=== PATIENT | female | born 1965 | race Caucasian/White ===

== ENCOUNTER 2023-11-26 09:24 | Outpatient (OUT) | payer OTHER, SELFPAY ==
--- NOTE | 2023-11-26 09:27 | MM_ITS ---
Patient Name: JANNY FERREIRA MR#: [id number] : 1965 Exam Date: 11/26/2023 Ordering Doctor: DR KIET ROBLES . RADIOLOGY REPORT PROCEDURE: MM TOMOSYNTHESIS SCREENING BI COMPARISON: MG MAMM SCREEN [place] W CAD, 09/15/2018. MG MAMM SCREEN 3D [place] CAD, 03/13/2021. INDICATIONS: Screening Calculator Name NCI Breast Cancer Risk Assessment Tool 5 Year Breast Cancer Risk 1.70% Lifetime Breast Cancer Risk 10.90% Personal Breast Cancer No Personal Ovarian Cancer No Treatments None Family Cancers Grandmother-maternal with breast cancer at age ~81; Grandfather-paternal with prostate cancer at age ~80. LOCATION: The [facility] BREAST COMPOSITION: The breasts are heterogeneously dense,which may obscure small masses. FINDINGS: DIAGNOSTIC CATEGORY 1--NEGATIVE. NO CHANGE FROM COMPARISON ASSESSMENT. Scattered benign-appearing calcifications are present. Scattered benign-appearing lymph nodes are present. RIGHT BREAST: No significant suspicious finding. LEFT BREAST: No significant suspicious finding. RECOMMENDATIONS: ROUTINE MAMMOGRAM AND CLINICAL EVALUATION IN 12 MONTHS. PLEASE NOTE: A NORMAL MAMMOGRAM DOES NOT EXCLUDE THE POSSIBILITY OF BREAST CANCER. A CLINICALLY SUSPICIOUS PALPABLE LUMP SHOULD BE BIOPSIED. Dictated by: Madi Kincaid MD on 11/26/2023 at 11:13 Approved by: Madi Kincaid MD on 11/26/2023 at 11:14
== END 2023-11-26 09:25 | disposition home or self-care (01) ==
LOC: MAMMO 09:24
PROVIDERS: PCP Family Medicine; Visit Provider Family Medicine
DX: Z12.31 Encounter for screening mammogram for malignant neoplasm of breast (principal); Z80.3 Family history of malignant neoplasm of breast; Z80.42 Family history of malignant neoplasm of prostate
CPT/HCPCS: 77063; 77067

== ENCOUNTER 2024-11-02 15:24 | Observation (INO) | payer OTHER, SELFPAY ==
[2024-11-02] VITALS (23 sets, daily range): BP systolic 115–155; BP diastolic 55–103; PULSE 58–63; TEMP 36.6–36.9; O2SAT 92–97; BMI 29.4; BMI 31.1
--- OUTSIDE RECORDS SUMMARY | 2024-11-02 15:36 | XMS_ITS | Encounter Summary ---
Author Organization [facility] Address [address] [place] [address] Care Team Providers Care Machine Wood Sander Name Role Phone Minor Pereira MD Primary Care Provider Encounter Details Date Type Department Care Team (Late st Contact Info) Description 10/08/2022 Orders Only [facility] [place] [facility] Family Medicine [address] [facility] [place] [address] Minor Pereira MD [address] [place] [address] (Fax) COVID-19 (Primary Dx) Social History Tobacco Use Types Packs/Day Years Used Date Smoking Tobacco: Every Day Cigarettes Smokeless Tobacco: Never Alcohol Use Standard Drinks/Week Comments Yes 2 (1 standard drink = 0.6 oz pur e alcohol) Humiliation, Afraid, Rape, and Kick questionnair e Answer Date Recorded Within the last year, have y ou been afraid of your partner or ex-partner? No 09/13/2022 Within the last year, have y ou been humiliated or emotionally abused in other ways by your partner or ex-partner? No Within the last year, have y ou been kicked, hit, slapped, or otherwise physically hurt by your partner or ex-partner? No 09/13/2022 Within the last year, have y ou been raped or forced to have any kind of sexual activity by your partner or ex-partner? No 09/13/2022 Social Connection and Isolation Panel [NHANES] A nswer Date Recorded In a typical week, how many times do you talk on the phone with family, friends, or neighbors? Twice a week 09/13/2022 How often do you get together with friends or re latives? Once a week 09/13/2022 How often do you attend taoist or rastafari serv ices? Never 09/13/2022 Do you belong to any clubs o r organizations such as taoist groups, unions, fraternal or athletic groups, or school groups? No 09/13/2022 How often do you attend meet ings of the clubs or organizations you belong to? Never 09/13/2022 Are you , , di vorced, , never , or living with a partner? 09/13/2022 AUDIT-C Answer Date Recorded Q1: How often do you have a drink containing alc ohol? Monthly or less 09/13/2022 Q2: How many drinks containi ng alcohol do you have on a typical day when you are drinking? 1 or 2 09/13/2022 Q3: How often do you have si x or more drinks on one occasion? Never 09/13/2022 Overall Financial Resource Strain (CARDIA) Answe r Date Recorded How hard is it for you to pa y for the very basics like food, housing, medical care, and heating? Not hard at all 09/13/2022 [facility] - Occupational Stress Questionnaire Answer Date Recorded Do you feel stress - tense, restless, nervous, or anxious, or unable to sleep at night because your mind is troubled all the time - these days? Very much 09/13/2022 Exercise Vital Sign Answer Date Recorde d On average, how many days pe r week do you engage in moderate to strenuous exercise (like a brisk walk)? 2 days 09/13/2022 On average, how many minutes do you engage in exercise at this level? 20 min 09/13/2022 Hunger Vital Sign Answer Date Recorded Within the past 12 months, y ou worried that your food would run out before you got the money to buy more. Never true 09/14/19 23 Within the past 12 months, t he food you bought just didn't last and you didn't have money to get more. Never true 09/13/2022 PRAPARE - Transportation Answer Date Re corded In the past 12 months, has l ack of transportation kept you from medical appointments or from getting medications? No 08/17 In the past 12 months, has l ack of transportation kept you from meetings, work, or from getting things needed for daily living? No 09/13/2022 Housing Stability Vital Sign Answer Julian e Recorded In the last 12 months, was t here a time when you were not able to pay the mortgage or rent on time? No 09/13/2022 In the last 12 months, how many places have you lived? 1 09/13/2022 In the last 12 months, was t here a time when you did not have a steady place to sleep or slept in a long-term (including now)? No 09/13/2022 Comments No Sex and Gender Information Value Date Recorded Sex Assigned at Not on file Legal Sex Female 7:05 PM EDT Gender Identity Not on file Sexual Orientation Not on file COVID-19 Exposure Response Date Recorded In the last 10 days, have yo u been in contact with someone who was confirmed or suspected to have Coronavirus/COVID-19? No / Unsure 09/13/2022 3:03 PM EDT documented as of this encounter Plan of Treatment Upcoming Encounters Date Type Department Care Team (Late st Contact Info) Description 02/19/2025 10:00 AM EST Office Visit [facility] [address] [address] [place] [address] Minor Pereira MD 112 [facility] [address] [place] [address] documented as of this encounter Visit Diagnoses Diagnosis COVID-19- Primary documented in this encounter Care Teams Machine Wood Sander Relationship Specialty Start Date End Date Minor Pereira MD 112 [address] [place] [address] PCP - General Family Medicine 06/07/24 documented as of this encounter
--- OUTSIDE RECORDS SUMMARY | 2024-11-02 15:36 | XMS_ITS | Encounter Summary ---
Author Organization [facility] Address [address] [facility] [place] [address] Care Team Providers Care Recovery Coach Name Role Phone Minor Pereira MD Primary Care Provider [phone] Encounter Details Date Type Department Care Team (Late st Contact Info) Description 10/14/2023 Orders Only [facility] [place] [facility] Family Medicine 112 [facility] 100 [place] [address] Minor Pereira MD 112 [facility] 100 [place] [address] Social History Tobacco Use Types Packs/Day Years Used Date Smoking Tobacco: Every Day Cigarettes 0.5 15 Smokeless Tobacco: Never Alcohol Use Standard Drinks/Week Comments Not Currently 2 (1 standard drink = 0.6 oz pur e alcohol) B1300 Health Literacy Answer Date Recor ded How often do you need to hav e someone help you when you read instructions, pamphlets, or other written material from your doctor or pharmacy? Never 09/16/2023 Humiliation, Afraid, Rape, and Kick questionnair e [...] or ex-partner? No 09/13/2022 Social Connection and Isolat ion Panel [NHANES] Answer Date Recorded In a typical week, how many times do you talk on the phone with family, friends, or neighbors? More than three times a week 09/16/2023 How often do you get togethe r with friends or relatives? Once a week 09/16/2023 How often do you attend chur or lutheran services? Never 09/16/2023 Do you belong to any clubs o r organizations such as orthodox groups, unions, fraternal or athletic groups, or school groups? No 09/16/2023 How often do you attend meet ings of the clubs or organizations you belong to? Never 09/16/2023 Are you , , di vorced, , never , or living with a partner? 09/16/2023 AUDIT-C Answer Date Recorded Q1: How often do you have a drink containing alcohol? Never 09/16/2023 Q2: How many drinks containi ng alcohol do you have on a typical day when you are drinking? Patient does not drink Q3: How often do you have si x or more drinks on one occasion? Never 09/16/2023 Overall Financial Resource Strain (CARDIA) Answe r Date Recorded How hard is it for you to pa y for the very basics like food, housing, medical care, and heating? Not hard at all 09/16/2023 PHQ-2 Answer Date Recorded Patient Health Questionnaire-2 Score 0 03/09/2023 [facility] - Occupational Stress Questionnaire Answer Date Recorded Do you feel stress - tense, restless, nervous, or anxious, or unable to sleep at night because your mind is troubled all the time - these days? To some extent 09/16/2023 Exercise Vital Sign Answer Date Recorde d On average, how many days pe r week do you engage in moderate to strenuous exercise (like a brisk walk)? 3 days 09/16/2023 On average, how many minutes do you engage in exercise at this level? 50 min 09/16/2023 Hunger Vital Sign Answer Date Recorded Within the past 12 months, y ou worried that your food would run out before you got the money to buy more. Never true 09/16/19 24 Within the past 12 months, t he food you bought just didn't last and you didn't have money to get more. Never true 09/16/2023 PRAPARE - Transportation Answer Date Re corded In the past 12 months, has l ack of transportation kept you from medical appointments or from getting medications? No 02/2023 In the past 12 months, has l ack of transportation kept you from meetings, work, or from getting things needed for daily living? No 09/16/2023 Housing Stability Vital Sign Answer Julian e [...] place to sleep or slept in a fdc (including now)? No 09/13/2022 Housing Stability Vital Sign Answer Julian e Recorded In the last 12 months, was t here a time when you were not able to pay the mortgage or rent on time? No 09/16/2023 Number of Times Moved in the Last Year Not on fi le 09/16/2023 At any time in the past 12 m [facility], were you homeless or living in a fdc (including now)? No 09/16/2023 Comments No Sex and Gender Information Value Date Recorded Sex Assigned at Not on file Legal Sex Female 7:05 PM EDT Gender Identity Not on file Sexual Orientation Not on file documented as of this encounter Plan of Treatment Upcoming Encounters Date Type Department Care Team (Late st Contact Info) Description 02/19/2025 10:00 AM EST Office Visit [facility] [address] [facility] 100 [place] [address] Minor Pereira MD 112 [facility] 100 [place] [address] (Fax) documented as of this encounter Visit Diagnoses Not on filedocumented in this encounter Care Teams Recovery Coach Relationship Specialty Start Date End Date Minor Pereira MD [address] [address] PCP - General Family Medicine 06/07/24 documented as of this encounter
--- OUTSIDE RECORDS SUMMARY | 2024-11-02 15:36 | XMS_ITS | Encounter Summary ---
Author Organization [facility] Address [address] [facility] [place] [address] Care Team Providers Care Boiler Room Operator Name Role Phone Minor Pereira MD Primary Care Provider [phone] Encounter Details Date Type Department Care Team (Late st Contact Info) Description 05/31/2024 Orders Only [facility] [place] [address] [facility] 100 [place] [address] Minor Pereira MD 112 [facility] 100 [place] [address] Social History Tobacco Use Types Packs/Day Years [...] How often do you attend chur or congregation services? Never 09/16/2023 Do you belong to any clubs o r organizations such as worship groups, unions, fraternal or athletic groups, or [...] Recorded Patient Health Questionnaire-2 Score 0 03/09/2023 [facility] - Occupational Stress Questionnaire Answer Date [...] place to sleep or slept in a [place] facility (including now)? No 09/13/2022 Housing Stability Vital Sign Answer Julian e Recorded In the last 12 months, was t here a time when you were not able to pay the mortgage or rent on time? No 09/16/2023 Number of Times Moved in the Last Year Not on fi le 09/16/2023 At any time in the past 12 m [facility], were you homeless or living in a [place] facility (including now)? No 09/16/2023 Comments No Sex [...] Visit [facility] [place] [address] [facility] [address] [place] [address] Minor Pereira MD 112 [facility] 100 [place] [address] (Fax) documented as of this encounter Visit Diagnoses Not on filedocumented in this encounter Care Teams Boiler Room Operator Relationship Specialty Start Date End Date Minor Pereira MD [address] [address] PCP - General Family Medicine 06/07/24 documented as of this encounter
--- OUTSIDE RECORDS SUMMARY | 2024-11-02 15:36 | XMS_ITS | Encounter Summary ---
Author Organization [facility] Address [address] [facility] [address] [place] [address] Care Team Providers Care Clinical Manager Home Care Name Role Phone Unavailable Primary Care Provider Unavailabl e Encounter Details Date Type Department Care Team (Late st Contact Info) Description 11/15/2023 Orders Only [facility] Part of [address] [place] [phone] Provider, Historical, Social History Tobacco Use Types Packs/Day Years Used Date Smoking Tobacco: Never Assessed Comments Unknown Sex and Gender Information Value Date Recorded Sex Assigned at Female 11/16/2023 2:21 PM EDT Legal Sex Female 1:37 PM EDT Gender Identity Female 11/16/2023 2:21 PM EDT Sexual Orientation Straight 11/16/2023 2: 21 PM EDT documented as of this encounter Plan of Treatment Not on file documented as of this encounter Procedures Procedure Name Priority Date/Time Associated Diagnosis Comments CT ABDOMEN PELVIS W CONTRAST Routine 10/21/2023 8:37 AM EDT URINE CULTURE CLEAN CATCH Routine 2023 8:38 AM EDT COMPREHENSIVE METABOLIC PANEL Routine 08/09/2023 8:40 AM EDT documented in this encounter Results * CT abdomen pelvis w contrast (10/21/2023 8:37 AM EDT) Anatomical Region Laterality Modality Computed Tomogra phy Historical Provider MD ZIEGLER CT ORDERABLES Final R esult * Urine culture clean catch (10/06/2023 8:38 AM EDT) us Historical Provider MICROBIOLOGY - GENERAL OR DERABLES Final Result * Comprehensive Metabolic Panel (08/09/2023 8:40 AM EDT) Blood BLOOD SPECIMEN / Unknown us Historical Provider CHEMISTRY ORDERABLES Kera l Result documented in this encounter Visit Diagnoses Not on filedocumented in this encounter
--- OUTSIDE RECORDS SUMMARY | 2024-11-02 15:36 | XMS_ITS | Encounter Summary ---
Author Organization [facility] Address [address] [place] [address] Care Team Providers Care Ferris Wheel Operator Name Role Phone Minor Pereira MD Primary Care Provider [phone] Encounter Details Date Type Department Care Team (Late st Contact Info) Description 11/26/2023 Clinisync Result Encounter [facility] External Department Unsolicited Minor Pereira MD [address] [place] [address] Social History Tobacco Use Types Packs/Day Years [...] 09/16/2023 How often do you attend chur ch or samaritan services? Never 09/16/2023 Do you belong to any clubs o r organizations such as hoahaoism groups, unions, fraternal or athletic groups, or [...] Recorded Patient Health Questionnaire-2 Score 0 03/09/2023 [facility] Answer Date Recorded [...] place to sleep or slept in a half-way (including now)? No 09/13/2022 Housing Stability Vital Sign Answer Julian e Recorded In the last 12 months, was t here a time when you were not able to pay the mortgage or rent on time? No 09/16/2023 Number of Times Moved in the Last Year Not on fi le 09/16/2023 At any time in the past [address] [facility], were you homeless or living in a half-way (including now)? No 09/16/2023 Comments No Sex and Gender Information Value Date Recorded Sex Assigned at Not on file Legal Sex Female 7:05 PM EDT Gender Identity Not on file Sexual Orientation Not on file documented as of this encounter Plan of Treatment Upcoming Encounters Date Type Department Care Team (Late st Contact Info) Description 02/19/2025 10:00 AM EST Office Visit [facility] 112 [facility] 100 [place] [address] Minor Pereira MD 112 [facility] [address] [place] [address] documented as of this encounter Procedures Procedure Name Priority Date/Time Associated Diagnosis Comments MM TOMOSYNTHESIS SCREENING BI 11/26/2023 11:14 AM EDT documented in this encounter Results * MM TOMOSYNTHESIS SCREENING BI (11/26/2023 11:14 AM EDT) Anatomical Region Laterality Modality Other 11/26/2023 11:1 4 AM EDT Narrative 11/26/2023 11:15 AM EDT The [address] [address] Mammography Report Signed Patient: JANNY FERREIRA MR#: [id number] : 1965 Acct:[id number] Age/Sex: 58 / F ADM Date: 11/26/23 Loc: MAMMO Attending Dr: MINOR PEREIRA Ordering Physician: MINOR PEREIRA Results: Date of Service: 11/26/23 Follow Up: Procedure(s): MM tomosynthesis screening BI Accession Number(s): [id number] cc: MINOR PEREIRA Patient Name: JANNY FERREIRA MR#: [id number] : 1965 Exam Date: 11/26/2023 Ordering Doctor: DR MINOR PEREIRA . RADIOLOGY REPORT PROCEDURE: MM TOMOSYNTHESIS SCREENING BI COMPARISON: MG MAMM SCREEN [place] W CAD, 09/15/2018. MG MAMM SCREEN 3D [place] CAD, 03/13/2021. INDICATIONS: Screening Calculator Name NCI Breast Cancer Risk Assessment Tool 5 Year Breast Cancer Risk 1.70% Lifetime Breast Cancer Risk 10.90% Personal Breast Cancer No Personal Ovarian Cancer No Treatments None Family Cancers Grandmother-maternal with breast cancer at age 81; Grandfather-paternal with prostate cancer at age 80. LOCATION: The [facility] BREAST COMPOSITION: The breasts are heterogeneously dense,which may obscure small masses. FINDINGS: DIAGNOSTIC CATEGORY 1--NEGATIVE. NO CHANGE FROM COMPARISON ASSESSMENT. Scattered benign-appearing calcifications are present. Scattered benign-appearing lymph nodes are present. RIGHT BREAST: No significant suspicious finding. LEFT BREAST: No significant suspicious finding. RECOMMENDATIONS: ROUTINE MAMMOGRAM AND CLINICAL EVALUATION IN 12 MONTHS. PLEASE NOTE: A NORMAL MAMMOGRAM DOES NOT EXCLUDE THE POSSIBILITY OF BREAST CANCER. A CLINICALLY SUSPICIOUS PALPABLE LUMP SHOULD BE BIOPSIED. Dictated by: Madi Kincaid MD on 11/26/2023 at 11:13 Approved by: Madi Kincaid MD on 11/26/2023 at 11:14 Dictated By: Madi Kincaid M.D. Signed By: 11/26/23 1115 DD/ 1114 TD/TT: Tv Host: Procedure Note Radiology, Radiologist, - 11/26/2023 [place] [address] Mammography Report Signed Patient: JANNY FERREIRA NMR#: [id number] : 1965Acct:[id number] Age/Sex: 58 / FADM Date: 11/26/23 Loc: MAMMO Attending Dr: MINOR PEREIRA Ordering Physician: MINOR PEREIRAResults: Date of Service: 11/26/23Follow Up: Procedure(s): MM tomosynthesis screening BI Accession Number(s): [id number] cc: MINOR PEREIRA Patient Name: JANNY FERREIRA MR#: [id number] : 1965 Exam Date: 11/26/2023 Ordering Doctor: DR MINOR PEREIRA . RADIOLOGY REPORT PROCEDURE: MM TOMOSYNTHESIS SCREENING BI COMPARISON: MG MAMM SCREEN [place] W CAD, 09/15/2018. MG MAMM SCREEN 3DBIL CAD, 03/13/2021. INDICATIONS: Screening Calculator Name NCI Breast Cancer Risk Assessment Tool 5 Year Breast Cancer Risk 1.70% Lifetime Breast Cancer Risk 10.90% Personal Breast Cancer No Personal Ovarian Cancer No Treatments None Family Cancers Grandmother-maternal with breast cancer at age 81; Grandfather-paternal with prostate cancer at age 80. LOCATION: The [facility] BREAST COMPOSITION: The breasts are heterogeneously dense,which may obscure small masses. FINDINGS: DIAGNOSTIC CATEGORY 1--NEGATIVE. NO CHANGE FROM COMPARISON ASSESSMENT. Scattered benign-appearing calcifications are present. Scattered benign-appearing lymph nodes are present. RIGHT BREAST: No significant suspicious finding. LEFT BREAST: No significant suspicious finding. RECOMMENDATIONS: ROUTINE MAMMOGRAM AND CLINICAL EVALUATION IN 12 MONTHS. PLEASE NOTE: A NORMAL MAMMOGRAM DOES NOT EXCLUDE THE POSSIBILITY OFBREAST CANCER. A CLINICALLY SUSPICIOUS PALPABLE LUMP SHOULD BE BIOPSIED. Dictated by: Madi Kincaid MD on 11/26/2023 at 11:13 Approved by: Madi Kincaid MD on 11/26/2023 at 11:14 Dictated By: Madi Kincaid M.D. Signed By:11/26/23 1115 DD/ 1114 TD/TT: Tv Host: Minor Pereira MD [facility] Final Resu lt documented in this encounter Visit Diagnoses Not on filedocumented in this encounter Care Teams Ferris Wheel Operator Relationship Specialty Start Date End Date Minor Pereira MD [address] [place] [address] PCP - General Family Medicine 06/07/24 documented as of this encounter
--- OUTSIDE RECORDS SUMMARY | 2024-11-02 15:36 | XMS_ITS | Clinical Summary ---
Author Organization [facility] Healthcare Address [address] [place] [address] Care Team Providers Care Taping Foreman Name Role Phone Minor Pereira MD Primary Care Provider + [phone] Allergies No known active allergies Medications diphenhydrAMINE (Benadryl Allergy) 25 MG capsule Take 25 mg by mouth every 8 (eight) hours if needed Active bisacodyl (Dulcolax) 5 MG EC tablet Take 5 mg by mouth Daily as needed Active azelastine (Astelin) 0.1 % nasal spray Administer 2 sprays into each nostril in the morning and 2 sprays before bedtime. 3 Active ASPIRIN 81 MG chewable tablet Chew 81 mg 3 (three) times a week Active ibuprofen 200 MG tablet Take 200 mg by mouth every 8 (eight) hours if needed Active metFORMIN XR (Glucophage-XR) 750 MG 24 hr tabletIndications: Pre-diabetes Take 1 tablet (750 mg) by mouth in the morning and 1 tablet (750 mg) before bedtime. Do not crush, chew, or split. 180 tablet 3 5 026 Active atorvastatin (Lipitor) 40 MG tabletIndications: Mixed hyperlipidemia Take 1 tablet (40 mg) by mouth at bedtime 90 tablet 1 5 026 Active Active Problems Problem Noted Date Diagnosed Date Multiple pulmonary nodules 11/08/2023 Polypharmacy 03/19/2023 Stage 2 chronic kidney disease 03/19/2023 Pre-diabetes 03/19/2023 Sleep initiation disorder 03/09/2023 Benign paroxysmal positional vertigo 07/29/2022 Cigarette smoker 07/29/2022 CPAP (continuous positive airway pressure) depen denalek 07/29/2022 Overview (03/19/2023): AutoPap History of hysterectomy 07/29/2022 Overview (11/08/2023): LUIZ Mixed hyperlipidemia 07/29/2022 Non morbid obesity due to excess calories 2022 Obstructive sleep apnea 07/29/2022 Old inferior wall myocardial infarction 07/30/19 Right bundle branch block 07/29/2022 Resolved Problems Problem Noted Date Diagnosed Date Resolved Date Chronic idiopathic urticaria 07/29/2022 11/08/2023 Encounters Date Type Department Care Team Description 08/22/2024 10:00 AM EDT Office Visit [facility] [address] [facility] [address] [place] [address] Minor Pereira MD Mixed hyperlipidemia ; Pre-diabetes; Stage 2 chronic kidney disease; Sleep initiation disorder; Cigarette smoker; Polypharmacy; Non morbid obesity due to excess calories 08/22/2024 Bamboo flowsheet [facility] [address] [place] [address] [address] [place] [address] Minor Pereira MD 08/22/2024 Travel 08/20/2024 Travel from Last 3 Months Immunizations Immunization Administration Dates Next Due Influenza, injectable, quadr ivalent, preservative free 12/26/2019,12/01/2018,11/22/2017 Influenza, seasonal, injectable 11/21/2018 Family History Medical History Relation Name Comments No Known Problems Brother No Known Problems Daughter Hearing loss Father Mak Hale Heart disease Father Mak Hale CABG Rheum arthritis Father Mak Hale Hearing loss Mother Lexi Hale Hypertension Mother Lexi Hale No Known Problems Sister No Known Problems Son Relation Name Status Comments Brother 1 brother Daughter 1 daughter Father Mak Hale Alive Mother Lexi Moed Alive Sister 1 sister Son 1 son Social History Tobacco Use Types Packs/Day Years Used Date Smoking Tobacco: Every Day Cigarettes 0.5 15 Smokeless Tobacco: Never Tobacco Cessation:Ready to Q uit: No; Counseling Given: Yes Alcohol Use Standard Drinks/Week Comments Not Currently [...] often do you attend chur ch or mu-ism services? Never 09/16/2023 Do you belong to any clubs o r organizations such as nondenominational groups, unions, fraternal or athletic groups, or [...] Recorded Patient Health Questionnaire-2 Score 0 03/09/2023 [facility] - Occupational [...] place to sleep or slept in a fpc (including now)? No 09/13/2022 Housing Stability Vital Sign Answer Julian e Recorded In the last 12 months, was t here a time when you were not able to pay the mortgage or rent on time? No 09/16/2023 Number of Times Moved in the Last Year Not on fi le 09/16/2023 At any time in the past 12 m [facility], were you homeless or living in a fpc (including now)? No 09/16/2023 Comments No Sex and Gender Information Value Date Recorded Sex Assigned at Not on file Legal Sex Female 7:05 PM EDT Gender Identity Not on file Sexual Orientation Not on file Last Filed Vital Signs Vital Sign Reading Time Taken Comments Blood Pressure 128/78 08/22/2024 9:53 AM EDT Pulse 77 08/22/2024 9:53 AM EDT Temperature - - Respiratory Rate - - Oxygen Saturation 97% 08/22/2024 9:53 AM EDT Inhaled Oxygen Concentration - - Weight 84.6 kg (186 lb 8 oz) 08/22/2024 9:53 AM EDT Height 167.6 cm (5' 6 ) 08/22/2024 9:53 AM EDT Body Mass Index 30.1 08/22/2024 9:53 AM EDT Plan of Treatment Upcoming Encounters Date Type Department Care Team (Late st Contact Info) Description 02/19/2025 10:00 AM EST Office Visit [facility] [address] [facility] [address] [place] [address] Minor Pereira MD [address] [facility] [address] [place] [address] Health Maintenance Due Date Last Done Comments CT Colonography 1967 Colonoscopy 1965 Colorectal Cancer Screening 1965 FIT-DNA 1967 FIT 1967 FOBT 1965 Sigmoidoscopy 1967 Influenza Vaccine (#1) 2024 0, 12/01/2018, 11/21/2018, Additional history exists Mammogram 11/25/2024 11/26/2023, 02/16, 03/13/2021, Additional history exists Procedures Procedure Name Priority Date/Time Associated Diagnosis Comments LIPID PANEL Routine 08/07/2024 8:46 AM EDT Mixed hyperlipidemia COMPREHENSIVE METABOLIC PANEL Routine 08/07/2024 8:46 AM EDT Stage 2 chronic kidney disease Pre-diabetes MM TOMOSYNTHESIS SCREENING BI 11/26/2023 11:14 AM EDT from Last 3 Months or Most Recently Relevant to Health Maintenance Results * (ABNORMAL) Lipid panel (08/07/2024 8:46 AM EDT) CHOLESTEROL, TOTAL 162 <200 mg/dL [facility] HDL CHOLESTEROL 48(L) > OR = 50 mg/dL [facility] TRIGLYCERIDES 190(H) <150 mg/dL [facility] LDL CHOLESTEROL 86 mg/dL (calc) [facility] Comment: Reference range: <100 Desirable range <100 mg/dL for primary prevention; <70 mg/dL for patients with CHD or diabetic patients with > or = 2 CHD risk factors. LDL-C is now calculated using the Caterina calculation, which is a validated novel method providing better accuracy than the Friedewald equation in the estimation of LDL-C. Preston LAMB et al. CAROLYN. 2013;310(19): 5418-3904 (http://education.[employer].i.Sec/faq/PEE664) CHOL/HDLC RATIO 3.4 <5.0 (calc) [facility] NON HDL CHOLESTEROL 114 <130 mg/dL (calc) [facility] Comment: For patients with diabetes plus 1 major ASCVD risk factor, treating to a non-HDL-C goal of <100 mg/dL (LDL-C of <70 mg/dL) is considered a therapeutic option. Blood Venous blood specimen / Unknown 08/07/2024 8:46 AM EDT 08/07/2024 3:23 PM EDT Narrative [facility] - 08/08/2024 2:30 AM EDT FASTING:YES FASTING: YES Resulting Agency Comment Performing Organization Information Site ID: [email or web address] Name: [facility] Address: [address] [place] [address], [address] [place] [id number] Director: Nikunj Madrigal MD Minor Pereira MD LAB BLOOD ORDERABLES Final R esult [facility] * (ABNORMAL) Comprehensive metabolic panel (08/07/2024 8:46 AM EDT) Glucose 104(H) 65 - 99 mg/dL [facility] Comment: Fasting reference interval For someone without known diabetes, a glucose value between 100 and 125 mg/dL is consistent with prediabetes and should be confirmed with a follow-up test. BUN 12 7 - 25 mg/dL [facility] Creatinine 0.61 0.50 - 1.03 mg/dL [facility] EGFR 104 > OR = 60 mL/min/1. 73m2 [facility] BUN/CREATININE RATIO SEE NOTE: 6 - 22 (calc) [facility] Comment: Not Reported: BUN and Creatinine are within reference range. Sodium 142 135 - 146 mmol/L [facility] Potassium, Bld 4.5 3.5 - 5.3 mmol/L [facility] Chloride 107 98 - 110 mmol/L [facility] Carbon Dioxide 24 20 - 32 mmol/L [facility] Calcium 9.5 8.6 - 10.4 mg/dL [facility] PROTEIN, TOTAL 7.0 6.1 - 8.1 g/dL [facility] ALBUMIN 4.2 3.6 - 5.1 g/dL [facility] GLOBULIN 2.8 1.9 - 3.7 g/dL (calc) [facility] ALBUMIN/GLOBULIN RATIO 1.5 1.0 - 2.5 (calc) [facility] BILIRUBIN, TOTAL 0.5 0.2 - 1.2 mg/dL [facility] ALKALINE PHOSPHATASE 113 37 - 153 U/L [facility] AST 16 10 - 35 U/L [facility] ALT 27 6 - 29 U/L [facility] Blood Venous blood specimen / Unknown 08/07/2024 8:46 AM EDT 08/07/2024 3:23 PM EDT Narrative [facility] - 08/08/2024 2:30 AM EDT FASTING:YES FASTING: YES Resulting Agency Comment Performing Organization Information Site ID: [email or web address] Name: [facility] Address: [address] [place] [id number] Director: Farida Quiñones us Minor Pereira MD LAB BLOOD ORDERABLES Final R esult [facility] * MM TOMOSYNTHESIS SCREENING BI (11/26/2023 11:14 AM EDT) Anatomical Region Laterality Modality Other 11/26/2023 11:1 4 AM EDT Narrative 11/26/2023 11:15 AM EDT [address] [address] Mammography Report Signed Patient: CHAYITO FERREIRA MR#: [id number] : 1965 Acct:[id number] Age/Sex: 58 / F ADM Date: 11/26/23 Loc: [facility]MO Attending Dr: MINOR PEREIRA Ordering Physician: MINOR PEREIRA Results: Date of Service: 11/26/23 Follow Up: Procedure(s): MM tomosynthesis screening BI Accession Number(s): [id number] cc: MINOR PEREIRA Patient Name: CHAYITO FERREIRA MR#: [id number] : 1965 Exam Date: 11/26/2023 Ordering Doctor: [...] prostate cancer at age 82. LOCATION: [facility] BREAST COMPOSITION: The breasts are [...] Signed By: 11/26/23 1115 DD/ 1114 TD/TT: Food And Beverage Director: Procedure Note Radiology, Radiologist, - 11/26/2023 [facility] [place] [id number] Mammography Report Signed Patient: CHAYITO FERREIRA NMR#: [id number] : 1965Acct:[id number] Age/Sex: 58 / FADM Date: 11/26/23 Loc: MAMMO Attending Dr: MINOR PEREIRA Ordering Physician: MINOR PEREIRAResults: Date of Service: 11/26/23Follow Up: Procedure(s): MM tomosynthesis screening BI Accession Number(s): [id number] cc: MINOR PEREIRA Patient Name: CHAYITO FERREIRA MR#: [id number] : 1965 Exam Date: 11/26/2023 Ordering Doctor: [...] prostate cancer at age 82. LOCATION: [facility] BREAST COMPOSITION: The breasts are [...] M.D. Signed By:11/26/23 1115 DD/ 1114 TD/TT: Food And Beverage Director: Minro Pereira MD [facility] Final Resu lt from Last 3 Months or Most Recently Relevant to Health Maintenance Insurance [facility] Care Teams Taping Foreman Relationship Specialty Start Date End Date Minor Pereira MD [address] [address] PCP - General Family Medicine 06/07/24
--- OUTSIDE RECORDS SUMMARY | 2024-11-02 15:36 | XMS_ITS | Clinical Summary ---
Author Organization [facility] Address [address] [facility], [address] [place] [address] Care Team Providers Care Verifying Machine Operator Name Role Phone Unavailable Primary Care Provider Unavailabl e Allergies No known active allergies Medications aspirin 81 MG chewable tablet Take 1 tablet by mouth three times a week Active atorvastatin (LIPITOR) 40 MG tablet Take 1 tablet by mouth nightly 08/23/2023 Active diphenhydrAMINE (BENADRYL) 25 MG capsule Take 1 capsule by mouth every 8 hours as needed Active bisacodyl (DULCOLAX) 5 MG EC tablet Take 1 tablet by mouth daily as needed Active azelastine (ASTELIN) 0.1 % nasal spray 1 spray by Nasal route 2 times daily Use in each nostril as directed Active traZODone (DESYREL) 50 MG tablet Take 1 tablet by mouth nightly Active metFORMIN (GLUCOPHAGE-XR) 750 MG extended release tablet Take 1 tablet by mouth daily (with breakfast) Active Social History Tobacco Use Types Packs/Day Years Used Date Smoking Tobacco: Never Assessed Comments Unknown Sex and Gender Information Value Date Recorded Sex Assigned at Female 11/16/2023 2:21 PM EDT Legal Sex Female 1:37 PM EDT Gender Identity Female 11/16/2023 2:21 PM EDT Sexual Orientation Straight 11/16/2023 2: 21 PM EDT Plan of Treatment Not on file
--- OUTSIDE RECORDS SUMMARY | 2024-11-02 15:36 | XMS_ITS | Clinical Summary ---
Author Organization [facility] Address [id number] [address] [place] [address] Care Team Providers Care Finish Molder Name Role Phone Minor Pereira MD Primary Care Provider + [phone] Allergies No known active allergies Medications meclizine (ANTIVERT) 25 mg tablet 8 Active fluticasone (FLONASE) 50 mcg/actuation nasal sprayIndications :Nasal congestion Administer 1 spray into each nostril daily. 15.8 mL 12 8 Active predniSONE (DELTASONE) 10 mg tabletIndication s:Acute otitis media, unspecified otitis media type Daily dose: 5 tabs for 2 days, then 4 tabs for 2 days, then 3 tabs for 2 days, then 2 tabs for 2 days, then 1 tab for 2 days 30 tablet 8 Active Active Problems Problem Noted Date Diagnosed Date Dizziness 10/27/2017 Nasal congestion 10/27/2017 Acute otitis media 10/27/2017 Social History Tobacco Use Types Packs/Day Years Used Date Smoking Tobacco: Every Day Smokeless Tobacco: Never Childcare Answer Date Recorded Childcare Unknown 07/27/2018 Employment Answer Date Recorded Employment Unknown 07/27/2018 Purpose - Life Answer Date Recorded Purpose and direction in life Unknown Comments Unknown Sex and Gender Information Value Date Recorded Sex Assigned at Not on file Legal Sex Female 11:47 AM EDT Gender Identity Not on file Sexual Orientation Not on file Last Filed Vital Signs Vital Sign Reading Time Taken Comments Blood Pressure 122/62 10/27/2017 10:32 AM EDT Pulse - - Temperature - - Respiratory Rate - - Oxygen Saturation - - Inhaled Oxygen Concentration - - Weight 93.4 kg (206 lb) 10/27/2017 10:32 AM EDT Height 167.6 cm (5' 6 ) 10/27/2017 10:32 AM EDT Body Mass Index 33.25 10/27/2017 10:32 AM EDT Plan of Treatment Health Maintenance Due Date Last Done Comments Depression Screening 1979 Tobacco Screening 1979 Adult BMI Screening 1985 DTaP,Tdap and Td Vaccines (1 - Tdap) 1986 Pap Smear 02/17/1988 Zoster (Shingles) Vaccine (1 of 2) 2017 Influenza Vaccine 10/16/2024 Medical Devices Not [place] [address] [employer] Care Teams Finish Molder Relationship Specialty Start Date End Date Minor Pereira MD PCP - General Family Medicine 07/19/19
--- OUTSIDE RECORDS SUMMARY | 2024-11-02 15:43 | XMS_ITS | CCD ---
Author Organization [facility] Care Team Providers Care Dental Biller Name Role Phone MARGARET, DR SANTA Primary Care Unavailable HEMEYER, DR SANTA Admitting Unavailable HEMEYER, DR SANTA Attending Unavailable HEMEBINH, DR SANTA Consulting Unavailable MARGARET, DR SANTA Primary Care Unavailable JAVEDYER, DR SANTA Admitting Unavailable HEMEYER, DR SANTA Attending Unavailable HEMEYER, DR SANTA Consulting Unavailable WEST, DR IRENE Betancourt Consulting Unavailable ZIEBER, DR JULIET Fowler Consulting Unavailable MARGARET, DR SANTA Primary Care Unavailable MICHELLE SANTANA Admitting Unavailable MICHELLE SANTANA Attending Unavailable MICHELLE SANTANA Consulting Unavailable Mary Bowens Unavailable Kelli Monte Unavailable MASSIMO Monte Attending Provider Kelli Monte Attending Unavailable Kelli Monte Admitting Unavailable Kiet Robles MD Primary Care Provider [phone] Kiet Robles MD Primary Care Provider Kiet Robles MD Primary Care Provider KIET ROBLES Referring Unavailable KIET ROBLES Attending Unavailable KIET ROBLES Referring Unavailable LIVIER AMBROSIO Attending Unavailable SULAIMAN MEYER Attending Unavailable KIET ROBLES Referring Unavailable IRENE MORAN Attending Unavailable SULAIMAN MEYER Referring Unavailable KIET ROBLES Attending Unavailable KIET ROBLES Attending Unavailable KIET ROBLES Referring Unavailable KIET ROBLES Attending Unavailable KIET ROBLES Attending Unavailable KIET ROBLES Attending Unavailable KIET ROBLES Attending Unavailable KIET ROBLES Attending Unavailable Medications Current Medications Medication Drug Class(es) Dates Sig (Normalized) Sig (Original) aspirin 81 mg chewable tablet (20 sources) Platelet Aggregation Inhibitor, Nonsteroidal Anti-inflammatory Drug ASPIRIN 81 MG chewable tablet Chew 81 mg 3 (three) times a week Active Baby Aspirin eliane ry other day Active azelastine hydrochloride 0.137 mg/actuat metered dose nasal spray (20 sources) Histamine-1 Receptor Antagonist Start: 02-25-2022 take 2 spray(s) nasal route in the morning azelastine (Astelin) 0.1 % nasal spray Administer 2 sprays into each nostril in the morning and 2 sprays before bedtime. 02/25/2022 Active bisacodyl 5 mg delayed release oral tablet (20 sources) Stimulant Laxative take 1 tablet by mouth every twenty-four hours as needed bisacodyl (Dulcolax) 5 MG EC tablet Take 5 mg by mouth Daily as needed Active ciprofloxacin 500 mg oral tablet (2 sources) Quinolone Antimicrobial Start: 10-14-2023 End: 10-24-2023 take 1 tablet by mouth in the morning ciprofloxacin (Cipro) 500 MG tablet Indications: Left lower quadrant abdominal pain , Hematuria, unspecified type Take 1 tablet (500 mg) by mouth in the morning and 1 tablet (500 mg) before bedtime. Do all this for 10 days. 20 tablet 10/14/2023 10/24/2023 Active diphenhydrAMINE hydrochloride 25 mg oral capsule (20 sources) Histamine-1 Receptor Antagonist take 1 capsule by mouth every eight hours as needed diphenhydrAMINE (Benadryl Allergy) 25 MG capsule Take 25 mg by mouth every 8 (eight) hours if needed Active ibuprofen 200 mg oral tablet (20 sources) Nonsteroidal Anti-inflammatory Drug take 1 tablet by mouth every eight hours as needed ibuprofen 200 MG tablet Take 200 mg by mouth every 8 (eight) hours if needed Active Lisinopril (2 sources) Angiotensin Converting Enzyme Inhibitor Lisinopril Active metroNIDAZOLE 500 mg oral tablet (2 sources) Nitroimidazole Antimicrobial Start: 10-14-2023 End: 10-24-2023 take 1 tablet by mouth in the morning metroNIDAZOLE (Flagyl) 500 MG tablet Indications: Left lower quadrant abdominal pain , Hematuria, unspecified type Take 1 tablet (500 mg) by mouth in the morning and 1 tablet (500 mg) before bedtime. Do all this for 10 days. 20 tablet 10/14/2023 10/24/2023 Active sulfamethoxazole 800 mg / trimethoprim 160 mg oral tablet (2 sources) Dihydrofolate Reductase Inhibitor Antibacterial, Sulfonamide Antimicrobial Start: 12-01-2023 End: 12-11-2023 take 1 tablet by mouth once in the morning, then take 1 tablet by mouth once at bedtime sulfamethoxazole-tr imethoprim (Bactrim DS) 800-160 MG per tablet Indications: Abscess of right leg Take 1 tablet by mouth in the morning and 1 tablet before bedtime. Do all this for 10 days. 20 tablet 12/01/2023 12/11/2023 Active Completed/Discontinued Medications Medication Drug Class(es) Dates Sig (Normalized) Sig (Original) Aircast Sport Ankle Brace/Rght - (3 sources) Start: 07-02-2018 Aircast Sport Ankle Brace/Rght - as directed ankle daily June, Not-Taking [id number] 200 actuat albuterol 0.09 mg/actuat metered dose inhaler (3 sources) beta2-Adrenergic Agonist Start: 01-24-2021 take 2 puff(s) by inhalation four times daily as needed Albuterol Sulfate HFA 108 (90 Base) MCG/ACT 2 puffs Inhalation qid prn Jan, Not-Taking amoxicillin 875 mg oral tablet (3 sources) Penicillin-class Antibacterial Start: 10-16-2017 take 1 tablet by mouth every twelve hours Amoxicillin 875 MG 1 tablet Orally every 12 hrs for 7 days Oct, Not-Taking atorvastatin 40 mg oral tablet (20 sources) HMG-CoA Reductase Inhibitor Start: 09-14-2022 End: 02-18-2025 take 1 tablet by mouth at bedtime atorvastatin (Lipitor) 40 MG tablet Indications: Mixed hyperlipidemia Take 1 tablet (40 mg) by mouth at bedtime 90 tablet 1 02/22/2024 08/22/2024 Discontinued (Reorder) azithromycin 250 mg oral tablet (3 sources) Macrolide Antimicrobial Start: 01-24-2021 Zithromax 250 MG 2 tablet on the first day, then 1 tablet daily for 4 days Orally Once a day for 5 day(s) Jan, Not-Taking benzonatate 200 mg oral capsule (4 sources) Non-narcotic Antitussive Start: 11-17-2023 End: 12-01-2023 take 1 capsule by mouth three times daily as needed for cough benzonatate (Tessalon) 200 MG capsule Indications: Cough Take 1 capsule (200 mg) by mouth 3 (three) times a day as needed for cough for up to 7 days Do not crush or chew. 21 capsule 11/17/2023 12/01/2023 Discontinued (Therapy completed) cefuroxime 250 mg oral tablet (2 sources) Cephalosporin Antibacterial Start: 10-06-2023 End: 10-14-2023 take 1 tablet by mouth in the morning cefuroxime (Ceftin) 250 MG tablet Indications: Hematuria, unspecified type Take 1 tablet (250 mg) by mouth in the morning and 1 tablet (250 mg) before bedtime. Do all this for 5 days. 10 tablet 10/06/2023 10/14/2023 Discontinued (Therapy completed) meclizine hydrochloride 25 mg oral tablet (3 sources) Antiemetic Start: 10-16-2017 take 0.5-1 tablets by mouth every eight hours as needed Meclizine HCl 25 MG 1/2 to 1 tablet as needed Orally every 8 hours for 10 days Oct, Not-Taking 24 hr metFORMIN hydrochloride 750 mg extended release oral tablet (20 sources) Biguanide Start: 09-13-2023 Metformin Active MG PO September 13, 2023 12:00am Start: 03-09-2023 End: 08-22-2025 take 1 tablet by mouth every twenty-four hours in the morning metFORMIN XR (Glucophage-XR) 750 MG 24 hr tablet Indications: Pre-diabetes Take 1 tablet (750 mg) by mouth in the morning and 1 tablet (750 mg) before bedtime. Do not crush, chew, or split.. 180 tablet 3 02/22/2024 08/22/2024 Discontinued (Reorder) Start: 09-14-2022 End: 03-09-2023 take 1 tablet by mouth in the morning metFORMIN (Glucophage) 1000 MG tablet Indications: Pre-diabetes Take 1 tablet (1,000 mg) by mouth in the morning and 1 tablet (1,000 mg) in the evening. Take with meals. 60 tablet 0 09/14/2022 03/09/2023 Discontinued (Therapy completed) Start: 09-14-2022 End: 03-09-2023 take 1 tablet by mouth in the morning metFORMIN (Glucophage) 500 MG tablet Indications: Pre-diabetes Take 1 tablet (500 mg) by mouth in the morning and 1 tablet (500 mg) in the evening. Take before meals. 60 tablet 0 09/14/2022 03/09/2023 Discontinued (Therapy completed) Start: 09-14-2022 End: 03-09-2023 take 1 tablet by mouth in the morning metFORMIN (Glucophage) 850 MG tablet Indications: Pre-diabetes Take 1 tablet (850 mg) by mouth in the morning and 1 tablet (850 mg) in the evening. Take before meals. 60 tablet 0 09/14/2022 03/09/2023 Discontinued (Therapy completed) naproxen sodium 550 mg oral tablet (3 sources) Nonsteroidal Anti-inflammatory Drug Start: 07-02-2018 take 1 tablet by mouth every twelve hours Anaprox DS 550 MG 1 tablet Orally Twice a day for 10 days June, Not-Taking Nirmatrelvir&Rit onavir 300/100 (Paxlovid, 300/100,) 20 x 150 MG & 10 x 100MG tablet therapy pack (2 sources) Start: 10-08-2022 End: 03-09-2023 take 3 tablets by mouth in the morning Nirmatrelvir&Sage navir 300/100 (Paxlovid, 300/100,) 20 x 150 MG & 10 x 100MG tablet therapy pack Indications: Infection caused by 2019 Novel Coronavirus Take 3 tablets by mouth in the morning and 3 tablets before bedtime. 1 each 0 10/08/2022 03/09/2023 Discontinued (Therapy completed) predniSONE 10 mg oral tablet (9 sources) Start: 11-17-2023 End: 12-01-2023 predniSONE (Deltasone) 10 MG tablet Indications: Acute viral syndrome , Acute cough Every 2 day tapering dose; 5,5,4,4,3,3,2,2,1 ,1,0.5,0.5 31 tablet 11/17/2023 12/01/2023 Discontinued (Therapy completed) Start: 01-24-2021 take 1 tablet by nik th every twelve hours prednisone 20 MG 1 tablet Orally BID for 5 Dec, Active traZODone hydrochloride 50 mg oral tablet (20 sources) Serotonin Reuptake Inhibitor Start: 09-14-2022 End: 08-22-2024 traZODone (Desyrel) 50 MG tablet Indications: Sleep initiation disorder Take 1/2 to 2 tablets at bedtime 60 tablet 09/14/2022 08/22/2024 Discontinued (Therapy completed) Problems Active Problems Problem Classification Problem Date Documented Da te Episodic/Chronic Abdominal pain (4 sources) Left lower quadrant pain; Translations: [Left lower quadrant pain] 10-14-2023 Episodic Administrative/social admission (2 sources) Advance directive discussed with patient; Translations: [Other specified counseling] 10-26-2023 Episodic Calculus of urinary tract (3 sources) Personal history of urinary calculi; Translations: [Kidney stone] Onset: 01-20-2021 11-08-2023 Episodic Cancer; other and unspecified primary (2 sources) Eosinophilic granuloma of bone; 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] 05-31-2024 Chronic Chronic kidney disease (20 sources) Chronic kidney disease stage 2; Translations: [Chronic kidney disease, stage 2 (mild)] Onset: 03-19-2023 03-09-2023 Chronic Conduction disorders (20 sources) Right bundle branch block; Translations: [Unspecified right bundle-branch block] Onset: 07-29-2022 03-19-2023 Chronic Coronary atherosclerosis and other heart disease (20 sources) Old inferior myocardial infarction; Translations: [Old myocardial infarction] Onset: 07-29-2022 07-29-2022 Chronic Diabetes mellitus without complication (1 source) Diabetes mellitus; Translations: [Type 2 diabetes mellitus without complications] 09-13-2023 Chronic Diabetes mellitus without complication (20 sources) Prediabetes; Translations: [Prediabetes] Onset: 03-19-2023 03-09-2023 Episodic Disorders of lipid metabolism (20 sources) Mixed hyperlipidemia; Translations: [Mixed hyperlipidemia] Onset: 07-29-2022 03-09-2023 Chronic Essential hypertension (1 source) Hypertensive disorder; Translations: [Essential (primary) hypertension] 09-13-2023 Chronic Genitourinary symptoms and ill-defined conditions (9 sources) Retention of urine, unspecified; Translations: [Personal history of urinary (tract) infections] Onset: 01-19-2021 Episodic Immunizations and screening for infectious disease (3 sources) Encounter for immunization; Translations: [Contact with and (suspected) exposure to other viral communicable diseases] Onset: 01-24-2021 Resolved: 01-24-2021 Episodic Neoplasms of unspecified nature or uncertain behavior (1 source) Neoplasm of brain; 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] 09-13-2023 Chronic Other aftercare (20 sources) Polypharmacy ; Translations: [Other manager terminal (current) drug therapy] Onset: 03-19-2023 03-19-2023 Episodic Other connective tissue disease (4 sources) Romberg's sign positive; Translations: [Other symptoms and signs involving the nervous system] 05-31-2024 Episodic Other ear and sense organ disorders (3 sources) Sensorineural hearing loss, bilateral; Translations: [Sensorineural hearing loss, bilateral] 07-17-2024 Chronic Other ear and sense organ disorders (3 sources) Bilateral tinnitus; Translations: [Tinnitus, bilateral] 07-17-2024 Episodic Other eye disorders (4 sources) Nystagmus present; Translations: [Unspecified nystagmus] 05-31-2024 Chronic Other injuries and conditions due to external causes (1 source) Injury, unspecified, initial encounter Episodic Other lower respiratory disease (2 sources) Cough; Translations: [Acute cough] 11-17-2023 Episodic Other nervous system disorders (4 sources) Ataxia; Translations: [Ataxia, unspecified] 05-31-2024 Episodic Other nutritional; endocrine; and metabolic disorders (20 sources) Obesity caused by energy imbalance; Translations: [Other obesity due to excess calories] Onset: 07-29-2022 03-09-2023 Chronic Other screening for suspected conditions (not mental disorders or infectious disease) (11 sources) Encounter for screening mammogram for malignant neoplasm of breast; Translations: [Encounter for screening for osteoporosis] Onset: 03-13-2021 Episodic Other upper respiratory infections (2 sources) Acute upper respiratory infection, unspecified; Translations: [Acute pharyngitis, unspecified] Episodic Residual codes; unclassified (20 sources) Obstructive sleep apnea syndrome; Translations: [Obstructive sleep apnea (adult) (pediatric)] Onset: 07-29-2022 03-09-2023 Chronic Residual codes; unclassified (20 sources) Dependence on continuous positive airway pressure ventilation; Translations: [Dependence on other enabling machines and devices] Onset: 07-29-2022 03-19-2023 Chronic Residual codes; unclassified (20 sources) Initial insomnia; Translations: [Other insomnia] Onset: 03-09-2023 03-09-2023 Chronic Residual codes; unclassified (1 source) Family history of malignant neoplasm of breast; Translations: [FAMILY HX MALIG NEOPLASM OF BREAST] Onset: 03-17-2021 Episodic Residual codes; unclassified (1 source) Family history of malignant neoplasm of prostate; Translations: [FAMILY HX MALIG NEOPLASM PROSTATE] Onset: 03-17-2021 Episodic Residual codes; unclassified (2 sources) Menopause present; Translations: [Asymptomatic menopausal state] 10-26-2023 Episodic Skin and subcutaneous tissue infections (4 sources) Cellulitis of right lower limb; Translations: [Cellulitis of right lower limb] 12-02-2023 Episodic Spondylosis; intervertebral disc disorders; other back problems (1 source) Neck pain; Translations: [Cervicalgia] 07-29-2024 Episodic Sprains and strains (1 source) Sprain of unspecified ligament of left ankle, initial encounter Episodic Substance-related disorders (20 sources) Nicotine dependence, cigarettes, uncomplicated; Translations: [Cigarette smoker ] Onset: 01-20-2021 03-09-2023 Chronic Unclassified (1 source) Sprain of unspecified ligament of left ankle, initial encounter; Translations: [Sprain of unspecified ligament of left ankle, initial encounter] Onset: 07-21-2022 Viral infection (2 sources) Acute viral disease; Translations: [Viral infection, unspecified] 11-17-2023 Episodic Viral infection (5 sources) COVID-19; Translations: [COVID-19] Onset: 01-24-2021 Resolved: 01-24-2021 Past or Other Problems Problem Classification Problem Date Documented Da te Episodic/Chronic Allergic reactions (20 sources) Chronic idiopathic urticaria; Translations: [Idiopathic urticaria] Onset: 07-29-2022 Resolved: 11-08-2023 07-29-2022 Episodic Conditions associated with dizziness or vertigo (20 sources) Benign paroxysmal positional vertigo; Translations: [Benign paroxysmal vertigo, unspecified ear] Onset: 07-29-2022 07-29-2022 Episodic Nausea and vomiting (2 sources) Nausea; Translations: [Nausea] 10-14-2023 Episodic Other lower respiratory disease (13 sources) Nodule of lung; Translations: [Solitary pulmonary nodule] Onset: 11-08-2023 11-08-2023 Episodic Other lower respiratory disease (14 sources) Multiple nodules of lung; Translations: [Other nonspecific abnormal finding of lung field] Onset: 11-08-2023 05-15-2024 Episodic Peritonitis and intestinal abscess (2 sources) Peritonitis; Translations: [Peritonitis, unspecified] 10-14-2023 Episodic Unclassified (1 source) Suspected COVID-19 virus infection Z20.822 Results Test Name Value Interpretation Reference Range Facility [facility] 08-08-2024 Albumin [Mass/Vol] 4.2 g/dL Normal 3.6-5.1 [facility] Comment on above: Performed By: #### 1 0231 #### [facility] [address] [place] [address] Agile Qa Tester: Farida Quiñones #### 7600 #### [facility] [place] [address] Agile Qa Tester: Nikunj Madrigal MD Albumin/Globulin [Mass ratio] 1.5 {ratio} Normal 1.0-2.5 [facility] Comment on above: Performed By: #### 1 0231 #### [facility] [address] Agile Qa Tester: Farida Quiñones #### 7600 #### [facility] [place] [address] Agile Qa Tester: Nikunj Madrigal MD ALP [Catalytic activity/Vol] 113 U/L Normal 37-153 [facility] Comment on above: Performed By: #### 1 0231 #### [facility] [address] [place] [address] Agile Qa Tester: Farida Quiñones #### 7600 #### [facility] [place] [address] Agile Qa Tester: Nikunj Madrigal MD ALT [Catalytic activity/Vol] 27 U/L Normal 6-29 [facility] Comment on above: Performed By: #### 1 0231 #### [facility] [address] [place], [place] [id number] Agile Qa Tester: Farida Quiñones #### 7600 #### [facility] of [address], [address] [place] [address] Agile Qa Tester: Nikunj Madrigal MD AST [Catalytic activity/Vol] 16 U/L Normal 10-35 [facility] Comment on above: Performed By: #### 1 0231 #### [facility] [address] [place], [place] [id number] Agile Qa Tester: Farida Quiñones #### 7600 #### [facility] [address], [address] [place] [address] Agile Qa Tester: Nikunj Madrigal MD Bilirubin [Mass/Vol] 0.5 mg/dL Normal 0.2-1.2 [facility] Comment on above: Performed By: #### 1 0231 #### [facility] [address] [place] [address] Agile Qa Tester: Farida Quiñones #### 7600 #### [facility] [address], [address] [place] [address] Agile Qa Tester: Nikunj Madrigal MD BUN/CREATININE RATIO SEE NOTE: Normal 6-22 [facility] Comment on above: Result Comment: Not Reported: BUN and Creatinine are within reference range. Performed By: #### 1 0231 #### [facility] [address] [place], [place] [id number] Agile Qa Tester: Farida Quiñones #### 7600 #### [facility] [address], [address] [place] [address] Agile Qa Tester: Nikunj Madrigal MD Calcium [Mass/Vol] 9.5 mg/dL Normal 8.6-10.4 [facility] Comment on above: Performed By: #### 1 0231 #### [facility] [address] [place], [place] [id number] Agile Qa Tester: Farida Quiñones #### 7600 #### [facility] [address], [address] [place] [address] Agile Qa Tester: Nikunj Madrigal MD Chloride [Moles/Vol] 107 mmol/L Normal 98-110 [facility] Comment on above: Performed By: #### 1 0231 #### [facility] [address] [place], [place] [id number] Agile Qa Tester: Farida Quiñones #### 7600 #### [facility] [place] [address], [address] [place] [address] Agile Qa Tester: Nikunj Madrigal MD CO2 [Moles/Vol] 24 mmol/L Normal 20-32 [facility] Comment on above: Performed By: #### 1 0231 #### [facility] [address] Agile Qa Tester: Farida Quiñones #### 7600 #### [facility] [address], [address] [place] [address] Agile Qa Tester: Nikunj Madrigal MD Creatinine [Mass/Vol] 0.61 mg/dL Normal 0.50-1.03 [facility] Comment on above: Performed By: #### 1 0231 #### [facility] [address] Agile Qa Tester: Farida Quiñones #### 7600 #### [facility] [address], [address] [place] [address] Agile Qa Tester: Nikunj Madrigal MD GFR/1.73 sq M.predicted among non-blacks MDRD (S/P/Bld) [Vol rate/Area] 104 mL/min/{1.73_m2} Normal > OR = 60 [facility] Comment on above: Performed By: #### 1 0231 #### [facility] [address] Agile Qa Tester: Farida Quiñones #### 7600 #### [facility] [address], [address] [place] [address] Agile Qa Tester: Nikunj Madrigal MD Globulin (S) [Mass/Vol] 2.8 g/dL Normal 1.9-3.7 [facility] Comment on above: Performed By: #### 1 0231 #### [facility] [address] [place] [address] Agile Qa Tester: Farida Quiñones #### 7600 #### [facility] [address], [address] [place] [address] Agile Qa Tester: Nikunj Madrigal MD Glucose [Mass/Vol] 104 mg/dL High 65-99 [facility] Comment on above: Result Comment: Fasting reference interval For someone without known diabetes, a glucose value between 100 and 125 mg/dL is consistent with prediabetes and should be confirmed with a follow-up test. Performed By: #### 1 0231 #### [facility] Agile Qa Tester: Farida Quiñones #### 7600 #### [facility] [address], [address] [place] [address] Agile Qa Tester: Nikunj Madrigal MD Potassium [Moles/Vol] 4.5 mmol/L Normal 3.5-5.3 [facility] Comment on above: Performed By: #### 1 0231 #### [facility] [address] [place], [place] [id number] Agile Qa Tester: Farida Quiñones #### 7600 #### [facility] [address], [address] [place] [address] Agile Qa Tester: Nikunj Madrigal MD Protein [Mass/Vol] 7.0 g/dL Normal 6.1-8.1 [facility] Comment on above: Performed By: #### 1 0231 #### [facility] [address] [place] [address] Agile Qa Tester: Farida Quiñones #### 7600 #### [facility] [address], [address] [place] [address] Agile Qa Tester: Nikunj Madrigal MD Sodium [Moles/Vol] 142 mmol/L Normal 135-146 [facility] Comment on above: Performed By: #### 1 0231 #### [facility] [address] [place] [phone] Agile Qa Tester: Farida Quiñones #### 7600 #### [facility] [address], [address] [place], [place] [id number] Agile Qa Tester: Nikunj Madrigal MD Urea nitrogen [Mass/Vol] 12 mg/dL Normal 7-25 [facility] Comment on above: Performed By: #### 1 0231 #### [facility] [address] [place] [phone] Agile Qa Tester: Farida Quiñones #### 7600 #### [facility] [address], [address] [place] [address] Agile Qa Tester: Nikunj Madrigal MD LIPID PANEL, [facility] 07-17 Cholesterol [Mass/Vol] 162 mg/dL Normal <200 [facility] Comment on above: Order Comment: FASTI NG:YES FASTING: YES Performed By: #### 1 0231 #### [facility] [address] [place] [phone] Agile Qa Tester: Farida Quiñones #### 7600 #### [facility] [address], [address] [place] [address] Agile Qa Tester: Nikunj Madrigal MD Cholesterol in HDL [Mass/Vol] 48 mg/dL Low > OR = 50 [facility] Comment on above: Order Comment: FASTI NG:YES FASTING: YES Performed By: #### 1 0231 #### [facility] [address] [place] [phone] Agile Qa Tester: Farida Quiñones #### 7600 #### [facility] [address], [address] [place] [address] Agile Qa Tester: Nikunj Madrigal MD Cholesterol in LDL [Mass/Vol] 86 mg/dL Normal [facility] Comment on above: Order Comment: FASTI NG:YES FASTING: YES Result Comment: Refe rence range: <100 Desirable range <100 mg/dL for primary prevention; <70 mg/dL for patients with CHD or diabetic patients with > or = 2 CHD risk factors. LDL-C is now calculated using the Caterina calculation, which is a validated novel method providing better accuracy than the Friedewald equation in the estimation of LDL-C. Preston LAMB et al. CAROLYN. 2013;310(19): 3255-5656 (http://education.[employer] [facility]/faq/UAA455) Performed By: #### 1 0231 #### [facility] [address] [place] [id number] Agile Qa Tester: Farida Quiñones #### 7600 #### [facility] [address], [address] [place] [address] Agile Qa Tester: Nikunj Madrigal MD Cholesterol.total/ Cholesterol in HDL [Mass ratio] 3.4 {ratio} Normal <5.0 [facility] Comment on above: Order Comment: FASTI NG:YES FASTING: YES Performed By: #### 1 0231 #### [facility] [address] [place] [id number] Agile Qa Tester: Farida Quiñones #### 7600 #### [facility] [address], [address] [place] [address] Agile Qa Tester: Nikunj Madrigal MD NON HDL CHOLESTEROL 114 mg/dL (calc) Normal <130 [facility] Comment on above: Order Comment: FASTI NG:YES FASTING: YES Result Comment: For patients with diabetes plus 1 major ASCVD risk factor, treating to a non-HDL-C goal of <100 mg/dL (LDL-C of <70 mg/dL) is considered a therapeutic option. Performed By: #### 1 0231 #### [facility] [address] [place], [place] [id number] Agile Qa Tester: Farida Quiñones #### 7600 #### [facility] [address], [address] [place] [address] Agile Qa Tester: Nikunj Madrigal MD Triglyceride [Mass/Vol] 190 mg/dL High <150 [facility] Comment on above: Order Comment: FASTI NG:YES FASTING: YES Performed By: #### 1 0231 #### [facility] [address] [place] [address] Agile Qa Tester: Farida Quiñones #### 7600 #### [facility] [address], [address] [place] [address] Agile Qa Tester: Nikunj Madrigal MD Auditory function testson Right Ear: Mild to sensorineural hearing loss from 500 Hz - 2K Hz rising to normal hearing at 3K Hz. Mild sensorineural hearing loss at 4K Hz rising to normal hearing from 6K Hz - 8K Hz Left Ear: Mild to sensorineural hearing loss from 500 Hz - 2K Hz rising to normal hearing above 2K Hz. Soceaniqcar e MR BRAIN WO CONTRASTon 06-06 MR BRAIN WO CONTRAST Exam: MR BRAIN WO CONTRAST Clinical History: Chronic vertigo, nystagmus, ataxia, positve Romberg test, bilateral tinnitus Reference Exam: No comparison FINDINGS: Technique: Multiplanar MRI evaluation of the brain is submitted, having been acquired in the dedicated neurovascular coil, without IV contrast, performed on 1.5 Kerri MRI system. Imaging findings: Ventricles/sulci/fissur es: Normal appearing CSF-containing spaces. Masses/hemorrhage/midli ne shift: Negative for mass effect or midline shift. No intracranial hemorrhagic phenomenon. White matter: No dysmyelinating process. Jorge-white differentiation: Preserved. Extraaxial spaces: No extra-axial fluid collection or mass. Calvarium: Intact. Vascular structures: Appropriate vascular flow void resides in the vessels at the base of the brain. Sagittal midline structures: Negative for cerebellar tonsillar ectopia. Fourth ventricle unremarkable. Cerebellar folia are preserved. Corpus callosum midline. Pituitary stalk and gland are normal in appearance. Paranasal sinuses/mastoid air cells: Air-fluid levels in the paranasal sinuses. Mucoperiosteal thickening of the ethmoid bulla extending into the frontal air cells. Sphenoid air cells are clear. Mastoid air cells are clear. Orbits: No intraconal abnormality. Symmetrical optic globes. No lens displacement. Visualized upper neck: Negative. Diffusion Weighted Imaging: There is appropriate diffusion weighted imaging signal without evidence of diffusion restriction. Impression: 1. Bilateral paranasal sinus disease. 2. No mass effect, midline shift, extra-axial fluid collection, dysmyelinating process, intracranial hemorrhagic phenomenon, or acute ischemia/infarct. Dictated on: 06/06/2024 1:58 PM This report has been electronically signed and approved by the interpreting Radiologist. Normal Not Available CT CHEST WO IV CONTRASTon CT CHEST WO IV CONTRAST CT CHEST WO IV CONTRAST Reason for exam: Lung nodule follow-up Technical: Spiral images were obtained through the chest. IV Contrast: None. FINDINGS: Chest wall: No soft tissue abnormalities. No significant rib lesions. Thyroid: The included portion is unremarkable. Heart: Normal size. No pericardial abnormalities. Coronary Artery Calcification: Present. Thoracic aorta: No aneurysm or dissection. Mediastinum and cat: No masses or lymphadenopathy. Lungs: There are multiple small pulmonary nodules without calcification. A 5 mm nodule at the right lung base adjacent to the pleura is unchanged from the previous abdominal CT which included this area on 10/21/2023. A smaller 4 mm nodule in the left lower lobe is also unchanged. There is a 3.5 mm nodule in the superior segment of the left lower lobe, 4 mm left major fissure perifissural nodule, and a somewhat larger perifissural nodule within the minor fissure between the right upper and middle lobe measuring 7 x 5 mm. Pleura: Negative for effusion, plaques or pleural nodules. Upper abdomen included on study: No significant findings. Impression: Multiple pulmonary nodules. Based on the small sizes of these nodules, no follow-up is required per Fleischner Society guidelines. Perifissural nodules are considered benign. All CT scans at this institution are performed using dose optimization techniques as appropriate for the performed exam including the following: Automated exposure control Adjustment of the mA and/or kV according to patient size Use of iterative reconstruction technique Dictated on: 05/12/2024 10:20 AM This report has been electronically signed and approved by the interpreting Radiologist. Normal Not Available CT ABDOMEN PELVIS W IV CONTR Neftaly 10-21-2023 CT ABDOMEN PELVIS W IV CONTRAST EXAM: CT Abdomen and Pelvis with Contrast. REASON FOR EXAM: Left lower quadrant pain. TECHNICAL: Spiral images through the abdomen and pelvis were obtained. Contrast: Isovue-300 100 mL FINDINGS: Lower chest: 5 mm pleural-based nodule, right lung base along the diaphragm. Liver: Unremarkable. Spleen: Unremarkable. Normal in size. Gallbladder: Normal. Pancreas: Unremarkable. Adrenals: Symmetric and unremarkable. Kidneys/urinary system: Multiple punctate nonobstructing left renal calyceal calculi, presently ranging up to 4 mm diameter. Hydronephrosis or ureteral stones. Aorta: Normal. Retroperitoneum: Clear. No adenopathy identified. Bowel: No dilatation, fold or wall thickening is appreciated. Mesentery/Peritoneum: Clear. Abdominal wall: Negative for hernia. Appendix: Normal. Bladder: Unremarkable. Reproductive organs/pelvic sidewalls: Normal for age. Bone structures: Intact. IMPRESSION CT Abdomen: 1. 5 mm juxtadiaphragmatic right lung base nodule, indeterminate. Follow-up is recommended. 2. Multiple nonobstructing left renal calyceal calculi. 3. No acute findings. IMPRESSION, CT Pelvis: Normal. All CT scans at this institution are performed using dose optimization techniques as appropriate for the performed exam including the following: Automated exposure control Adjustment of the mA and/or kV according to patient size Use of iterative reconstruction technique *This report is generated using voice recognition reporting ([employer]). On occasion [employer] erroneously drops words from the report or replaces the spoken word with similar sounding words. Please call with any questions/concerns regarding this report.* Dictated and transcribed 10/22/2023/tm This report has been electronically signed and approved by the interpreting radiologist. Electronically Signed Benny Wills M.D. 2023-10-22 18:59:13 Normal Not Available Comment on above: Order Comment: LLQ P AIN X 1 WK, CONSTIPATION Quick Strepon 01-12-2023 S. pyogenes Org specific cx Ql (Throat) Negative [employer] Other Quick Strep [employer] Other SARS-CoV-2 (COVID-19) RNA NA A+probe Ql (Resp)on 01-12-2023 SARS-CoV-2 (COVID-19) RNA ARMANDO+probe Ql (Unsp spec) Negative [employer] Other XR ankle LT min 3V*on 2022 XR ankle LT min 3V* [facility] [place] [address] [place] [id number] XRay Report Signed Patient: Noftz,Chayito MR#: [id number] 3 : 1965 Acct:[id number] Age/Sex: 57 / F ADM Date: 07/21/22 Loc: XDUCLY Room: Type: [facility] Attending Dr: Kelli Monte APRN Copies to: Kelli Monte APRN Ordering Provider: Kelli Monte APRN Date of Service: 07/21/22 XR/XR ankle LT min 3V*: Injury 3 views left ankle plain film COMPARISON: None HISTORY: Left ankle pain. Injury. ACUTE FINDINGS: None DEGENERATIVE CHANGE: Unremarkable SOFT TISSUE FINDINGS: Lateral soft tissue swelling. JOINT EFFUSION: None POSTOP CHANGES: None BONE MINERALIZATION: Adequate XR/XR ankle LT min 3V* IMPRESSION: No acute fracture Impression dictated by: Pete Wetzel M.D.07/21/2022 1:36 PM Dictation Location: [place] [address] Transcribed By: [facility] 07/21/22 1336 Dictated By: Pete Wetzel DO 07/21/22 1335 Signed By: 07/21/22 1336 Normal [facility] XR ankle LT min 3V* [facility] [employer] Other XR ankle LT min 3V* [facility] [employer] Other XR ankle LT min 3V* [address] [place] [address] [employer] Other XR ankle LT min 3V* [place] [address] [facility] [employer] Other XR ankle LT min 3V* XRay Report [facility] [employer] Other XR ankle LT min 3V* Signed [employer] Other XR ankle LT min 3V* Patient: Chayito Church MR#: [id number] [facility] [employer] Other XR ankle LT min 3V* 3 [facility] Other XR ankle LT min 3V* : 1965 Acct:[id number] [employer] Other XR ankle LT min 3V* Age/Sex: 57 / F ADM Date: 07/21/22 [employer] Other XR ankle LT min 3V* Loc: XDUCLY [facility] [employer] Other XR ankle LT min 3V* Attending Dr: Kelli Monte APRN [employer] Other XR ankle LT min 3V* Copies to: Kelli Monte APRN [employer] Other XR ankle LT min 3V* Ordering Provider: Kelli Monte APRN [employer] Other XR ankle LT min 3V* Date of Service: 07/21/22 [employer] Other XR ankle LT min 3V* XR/XR ankle LT min 3V*: Injury [employer] Other XR ankle LT min 3V* 3 views left ankle plain film [employer] Other XR ankle LT min 3V* COMPARISON: None [employer] Other XR ankle LT min 3V* HISTORY: Left ankle pain. Injury. [employer] Other XR ankle LT min 3V* ACUTE FINDINGS: None [employer] Other XR ankle LT min 3V* DEGENERATIVE CHANGE: Unremarkable [employer] Other XR ankle LT min 3V* SOFT TISSUE FINDINGS: Lateral soft tissue swelling. [employer] Other XR ankle LT min 3V* JOINT EFFUSION: None [employer] Other XR ankle LT min 3V* POSTOP CHANGES: None [employer] Other XR ankle LT min 3V* BONE MINERALIZATION: Adequate [employer] Other XR ankle LT min 3V* XR/XR ankle LT min 3V* [employer] Other XR ankle LT min 3V* IMPRESSION: No acute fracture [employer] Other XR ankle LT min 3V* Impression dictated by: Pete Wetzel M.D.07/21/2022 1:36 PM [employer] Other XR ankle LT min 3V* Dictation Location: [place] [address] [employer] Other XR ankle LT min 3V* Transcribed By: PWS 07/21/22 [facility] [employer] Other XR ankle LT min 3V* Dictated By: Pete Wetzel DO 07/21/22 [facility] [employer] Other XR ankle LT min 3V* Signed By: [employer] Other XR ankle LT min 3V* 07/21/22 [facility] [employer] Other MG MAMM SCREEN 3D KG CADon 03-13-2021 MG MAMM SCREEN 3D KG CAD Patient: CHAYITO CHURCH Exam Date: 03/13/2021 : 1965 Gender:F Ordering : DR KIET ROBLES . Admission #: [id number] Family : Order #: [id number] CLICK HERE TO VIEW EXAM RADIOLOGY REPORT PROCEDURE: MAMMOGRAM SCREENING 3D BILATERAL CAD COMPARISON: MG MAMM KG SCRN W CAD DIG, 11/20/2014. MG MAMM SCREEN KG W CAD, 09/15/2018. INDICATIONS: Screening mammography Calculator Name NCI Breast Cancer Risk Assessment Tool 5 Year Breast Cancer Risk 1.60% Lifetime Breast Cancer Risk 11.40% Personal Breast Cancer No Personal Ovarian Cancer No Treatments None Family Cancers Grandmother-maternal with breast cancer at age 81; Grandfather-paternal with prostate cancer at age 80. LOCATION: [facility] BREAST COMPOSITION: Heterogeneously dense,which may obscure small masses. FINDINGS: DIAGNOSTIC [...] PALPABLE LUMP SHOULD BE BIOPSIED. Dictated by: Irene Kincaid MD on 03/13/2021 at 11:16 Approved by: Irene Kincaid MD on 03/13/2021 at 11:23 Normal [facility] XR DEXA BONE DENSITYon 03-13 XR DEXA BONE DENSITY EXAMINATION: XR DEXA BONE DENSITY, 03/13/2021 10:45 AM EST HISTORY: Screening for osteoporosis COMPARISON: None. TECHNIQUE: Dual-energy X-ray absorptiometry (DEXA) bone density study performed for the axial skeleton. FINDINGS: SPINE ANALYSIS: Average bone mineral density is 1.124 g/cm2. T-score (standard deviation relative to young adult mean): -0.5 . HIP ANALYSIS: Lowest bone mineral density is within the right femoral neck, 0.932 g/cm2. T-score (standard deviation relative to young adult mean): -0.8 . IMPRESSION: World [employer] Organization Classification: Normal - Low Fracture Risk Electronically authenticated by: JULIET BROWN Date: 2021-03-13 11:24 Normal [facility] Comprehensive Metabolic Pane elieser 02-28-2021 Albumin [Mass/Vol] 4.2 g/dL Normal 3.6-5.1 [facility] Special[facility] Comment on above: Performed By: #### C AARON LIPD #### [facility] [address] [place], [place] [id number] Albumin/Globulin [Mass ratio] 1.6 {ratio} Normal 1.0-2.5 [facility] Comment on above: Performed By: #### C AARON LIPD #### [facility] [address] [place], [place] [id number] ALP [Catalytic activity/Vol] 139 U/L High 35-119 [facility] Special[facility] Comment on above: Performed By: #### C AARON LIPD #### [facility] [address] [place], [place] [id number] ALT [Catalytic activity/Vol] 22 U/L Normal 6-33 [facility] Comment on above: Result Comment: 01/15 Female reference range changed. Performed By: #### C AARON LIPD #### [facility] [address] [place], [place] [id number] Anion gap [Moles/Vol] 18 mmol/L Normal 12-20 [facility] Comment on above: Result Comment: Effe ctive 02/20/2019 reference range changed. Performed By: #### C AARON LIPD #### [facility] [address] [place], [place] [id number] AST [Catalytic activity/Vol] 16 U/L Normal 9-34 [facility] Comment on above: Performed By: #### C AARON LIPD #### [facility] [address] [place], [place] [id number] BUN/CREA 20 Ratio Normal 6-22 [facility] Comment on above: Performed By: #### C AARON LIPD #### [facility] [address] [place], [place] [id number] Calcium [Mass/Vol] 9.7 mg/dL Normal 8.6-10.2 [facility] Comment on above: Performed By: #### C AARON LIPD #### [facility] [address] [place], [place] [id number] Chloride [Moles/Vol] 102 mmol/L Normal 98-107 [facility] Comment on above: Performed By: #### C AARON LIPD #### [facility] [address], [place] [id number] CO2 [Moles/Vol] 24 mmol/L Normal 20-31 [facility] Comment on above: Performed By: #### C AARON LIPD #### [facility] [address] [place], [place] [id number] Creatinine [Mass/Vol] 0.8 mg/dL Normal 0.6-1.4 [facility] Comment on above: Performed By: #### C AARON LIPD #### [facility] [address] [place], [place] [id number] eGFRAA 96 mL/min/1.73m2 Normal >60 [facility] Special[facility] Comment on above: Performed By: #### C AARON, LIPD #### [facility] [address] [place], [place] [id number] eGFRNAA 79 mL/min/1.73m2 Normal >60 [facility] Special[facility] Comment on above: Performed By: #### C AARON, LIPD #### [facility] [address] [place], [place] [id number] Globulin (S) [Mass/Vol] 2.7 g/dL Normal 1.9-3.7 [facility] Comment on above: Performed By: #### C AARON, LIPD #### [facility] [address] [place], [place] [id number] Glucose [Mass/Vol] 107 mg/dL High 65-99 [facility] Comment on above: Result Comment: For FASTING Glucose --- ADA reference ranges: Normal 65-99 mg/dl Prediabetes 100-125 Diabetes >/= 126 Performed By: #### C AARON, LIPD #### [facility] [address] [place], [place] [id number] Potassium [Moles/Vol] 4.6 mmol/L Normal 3.5-5.5 [facility] Comment on above: Performed By: #### C AARON, LIPD #### [facility] [address] [place], [place] [id number] Protein [Mass/Vol] 6.9 g/dL Normal 6.1-8.1 [facility] Comment on above: Performed By: #### C AARON, LIPD #### [facility] [address] [place], [place] [id number] Sodium [Moles/Vol] 139 mmol/L Normal 135-146 [facility] Comment on above: Performed By: #### C AARON, LIPD #### [facility] [address] [place], [place] [id number] TBIL <0.3 Normal [facility] Special[facility] Comment on above: Performed By: #### C AARON, LIPD #### [facility] [address], [place] [id number] Urea nitrogen [Mass/Vol] 15 mg/dL Normal 7-25 [facility] Special[facility] Comment on above: Performed By: #### C AARON LIPD #### [facility] [address] [place], [place] [id number] Lipid Panelon 02-28-2021 Cholesterol [Mass/Vol] 243 mg/dL High 125-200 [facility] Comment on above: Result Comment: Low risk < 200mg/dL Borderline risk 201-239 mg/dl High risk > or equal to 240 Performed By: #### C MP, LIPD #### [facility] [address] [place], [place] [id number] Cholesterol in HDL [Mass/Vol] 42 mg/dL Normal >40 [facility] Comment on above: Result Comment: High Cardiovascular Risk HDL <40 mg/dL Low Cardiovascular Risk HDL > or equal to 60 mg/dl Performed By: #### C MP, LIPD #### [facility] [address] [place], [place] [id number] Cholesterol in LDL [Mass/Vol] 162 mg/dL Normal [facility] Comment on above: Result Comment: LDL ATP III CLASSIFICATION LDL less than 100 mg/dl Optimal LDL 100-129 mg/dl Near or above optimal LDL 130-159 Borderline high LDL 160-189 High LDL greater than 189 mg/dl Very High Performed By: #### C MP, LIPD #### [facility] [address] [place], [place] [id number] Cholesterol in VLDL [Mass/Vol] 39 mg/dL Normal [facility] Special[facility] Comment on above: Performed By: #### C MP, LIPD #### [facility] [address] [place], [place] [id number] Cholesterol.total/ Cholesterol in HDL [Mass ratio] 6 {ratio} Normal [facility] Comment on above: Performed By: #### C MP, LIPD #### [facility] [address] [place], [place] [id number] Triglyceride [Mass/Vol] 194 mg/dL High 30-150 [facility] Comment on above: Result Comment: TRIG ATPIII CLASSIFICATIONS TRIG less than 150 mg/dl Normal TRIG 150-199 mg/dl Borderline High TRIG 200-500 mg/dl High TRIG greather than 500 mg/dl Very High Performed By: #### C MP, LIPD #### [facility] [address] [place], [place] [id number] COVID Quick Testingon 2020 Result Positive [facility] [employer] Other Quick Fluon 01-24-2021 FLUAV Ab CF (S) [Titer] Negative [facility] [employer] Other FLUBV Ab CF (S) [Titer] Negative [employer] [facility] [employer] Other ER URINE PROFILEon 1 Bilirubin Ql (U) Negative Normal NEGATIVE [facility] Comment on above: Performed By: #### E RUR #### [facility] [address] [place] [address] Dr. Aba Robison Clarity (U) CLEAR Normal CLEAR [facility] Comment on above: Performed By: #### E RUR #### [facility] [address] [place] [address] Dr. Aba Robison Color (U) LT. YELLOW Normal YELLOW [facility] Comment on above: Performed By: #### E RUR #### [facility] [address] [place] [address] Dr. Aba HERNADEZ A micrscopic examination will be performed if indicated. Normal [facility] Comment on above: Performed By: #### E RUR #### [facility] [address] [place] [address] Dr. Aba Robison Glucose Ql (U) Negative Normal NEGATIVE [facility] Comment on above: Performed By: #### E RUR #### [facility] [address] [place] [address] Dr. Aba Robison Hemoglobin Ql (U) Negative Normal NEGATIVE [facility] Comment on above: Performed By: #### E RUR #### [facility] [address] [place] [address] Dr. Aba Robison Ketones Ql (U) Negative Normal NEGATIVE [facility] Comment on above: Performed By: #### E RUR #### [facility] [address] [place] [address] Dr. Aba Robison LEUKOCYTES Negative Normal NEGATIVE [facility] Comment on above: Performed By: #### E RUR #### [facility] [address] [place] [address] Dr. Aba Robison Nitrite Ql (U) Negative Normal NEGATIVE [facility] Comment on above: Performed By: #### E RUR #### [facility] [address] [place] [address] Dr. Aba Robison pH (U) 5.5 [pH] Normal 5-9 [facility] Comment on above: Performed By: #### E RUR #### [facility] [address] [place] [address] Dr. Aba Robison SPEC GRAVITY >=1.030 Abnormal 1.005-<=1.025 [facility] Comment on above: Performed By: #### E RUR #### [facility] [address] [place] [address] Dr. Aba Robison UA PROTEIN Negative Normal NEGATIVE/ TRACE [facility] Comment on above: Performed By: #### E RUR #### [facility] [address] [place] [address] Dr. Aba Robison UR MICRO IND NOT INDICATED Normal [facility] Comment on above: Performed By: #### E RUR #### [facility] [address] [place] [address] Dr. Aba Robison Urobilinogen Qn (U) 0.2 {Roz'U}/dL Normal 0.2 - 1.0 [facility] Comment on above: Performed By: #### E RUR #### [facility] [address] [place] [address] Dr. Aba Robison Vital Signs Date Time Vital Sign Value Performing Clinician Facility 08-22-2024 09:53-0400 Body height 167.6 cm Kiet Robles MD Work Phone: [facility] 08-22-2024 09:53-0400 Body mass index (BMI) [Ratio] 30.1 kg/m2 Kiet Robles MD Work Phone: [facility] 08-22-2024 09:53-0400 Body weight 84.6 kg Kiet Robles MD Work Phone: [facility] 08-22-2024 09:53-0400 Diastolic blood pressure 78 mm[Hg] Kiet Robles MD Work Phone: [facility] 08-22-2024 09:53-0400 Heart rate 77 /min Kiet Robles MD Work Phone: [facility] 08-22-2024 09:53-0400 SaO2% (BldA) [Mass fraction] 97 % Kiet Robles MD Work Phone: [facility] 08-22-2024 09:53-0400 Systolic blood pressure 128 mm[Hg] Kiet Robles MD Work Phone: [facility] 07-18-2024 10:51-0400 Body height 167.6 cm Sulaiman Meyer MD Work Phone: [facility] 07-18-2024 10:51-0400 Body mass index (BMI) [Ratio] 30.02 kg/m2 Sulaiman Meyre MD Work Phone: [facility] 07-18-2024 10:51-0400 Body weight 84.37 kg Sulaiman Meyer MD Work Phone: [facility] 07-18-2024 10:51-0400 Diastolic blood pressure 65 mm[Hg] Sulaiman Meyer MD Work Phone: [facility] 07-18-2024 10:51-0400 Heart rate 95 /min Sulaiman Meyer MD Work Phone: [facility] 07-18-2024 10:51-0400 Systolic blood pressure 147 mm[Hg] Sulaiman Meyer MD Work Phone: [facility] 05-18-2024 09:06-0400 Body height 167.6 cm Kiet Robles MD Work Phone: [facility] 05-18-2024 09:06-0400 Body mass index (BMI) [Ratio] 30.02 kg/m2 Kiet Rboles MD Work Phone: [facility] 05-18-2024 09:06-0400 Body weight 84.37 kg Kiet Robles MD Work Phone: [facility] 02-22-2024 09:57-0500 Body height 167.6 cm Kiet Robles MD Work Phone: [facility] 02-22-2024 09:57-0500 Body mass index (BMI) [Ratio] 30.02 kg/m2 Kiet Robles MD Work Phone: [facility] 02-22-2024 09:57-0500 Body weight 84.37 kg Kiet Robles MD Work Phone: [facility] 02-22-2024 09:57-0500 Heart rate 85 /min Kiet Robles MD Work Phone: [facility] 02-22-2024 09:57-0500 SaO2% (BldA) [Mass fraction] 97 % Kiet Robles MD Work Phone: [facility] 12-01-2023 14:30-0400 Body height 167.6 cm Kiet Robles MD Work Phone: [facility] 12-01-2023 14:30-0400 Body mass index (BMI) [Ratio] 30.02 kg/m2 Kiet Robles MD Work Phone: [facility] 12-01-2023 14:30-0400 Body weight 84.37 kg Kiet Robles MD Work Phone: [facility] 11-17-2023 11:38-0400 Heart rate 106 /min Kiet Robles MD Work Phone: [facility] 11-17-2023 11:38-0400 SaO2% (BldA) [Mass fraction] 99 % Kiet Robles MD Work Phone: [facility] 11-08-2023 09:58-0400 Body height 167.6 cm Kiet Robles MD Work Phone: [facility] 11-08-2023 09:58-0400 Body mass index (BMI) [Ratio] 30.02 kg/m2 Kiet Robles MD Work Phone: [facility] 11-08-2023 09:58-0400 Body weight 84.37 kg Kiet Robles MD Work Phone: [facility] 11-08-2023 09:58-0400 Diastolic blood pressure 78 mm[Hg] Kiet Robles MD Work Phone: [facility] 11-08-2023 09:58-0400 Heart rate 83 /min Kiet Robles MD Work Phone: [facility] 11-08-2023 09:58-0400 SaO2% (BldA) [Mass fraction] 98 % Kiet Robles MD Work Phone: [facility] 11-08-2023 09:58-0400 Systolic blood pressure 130 mm[Hg] Kiet Robles MD Work Phone: [facility] 10-14-2023 13:58-0400 Body height 167.6 cm Kiet Robles MD Work Phone: [facility] 10-14-2023 13:58-0400 Body mass index (BMI) [Ratio] 30.67 kg/m2 Kiet Robles MD Work Phone: [facility] 10-14-2023 13:58-0400 Body weight 86.18 kg Kiet Robles MD Work Phone: [facility] 09-13-2023 18:36-0400 Body height 167.64 cm [facility] 09-13-2023 18:36-0400 Body mass index (BMI) [Ratio] 30.2 kg/m2 [facility] 09-13-2023 18:36-0400 Body temperature 99.4 [degF] [facility] 09-13-2023 18:36-0400 Body weight 84.82 kg [facility] 09-13-2023 18:36-0400 Diastolic blood pressure 82 mm[Hg] [facility] 09-13-2023 18:36-0400 Heart rate 97 /min [facility] 09-13-2023 18:36-0400 Respiratory rate 18 /min [facility] 09-13-2023 18:36-0400 SaO2% (BldA) [Mass fraction] 97 % [facility] 09-13-2023 18:36-0400 Systolic blood pressure 136 mm[Hg] [facility] 03-09-2023 09:50-0500 Body height 167.6 cm Kiet Robles MD Work Phone: [facility] 03-09-2023 09:50-0500 Body mass index (BMI) [Ratio] 30.67 kg/m2 Kiet Robles MD Work Phone: [facility] 03-09-2023 09:50-0500 Body weight 86.18 kg Kite Robles MD Work Phone: [facility] 03-09-2023 09:50-0500 Diastolic blood pressure 78 mm[Hg] Kiet Robles MD Work Phone: [facility] 03-09-2023 09:50-0500 Heart rate 98 /min Kiet Robles MD Work Phone: [facility] 03-09-2023 09:50-0500 SaO2% (BldA) [Mass fraction] 97 % Kiet Robles MD Work Phone: [facility] 03-09-2023 09:50-0500 Systolic blood pressure 128 mm[Hg] Kiet Robles MD Work Phone: [facility] 01-12-2023 17:50-0500 Body height 167.64 cm Kelli Monte Other [facility] Other 01-12-2023 17:50-0500 Body mass index (BMI) [Ratio] 30.99 kg/m2 Kelli Monte Other [facility] Other 01-12-2023 17:50-0500 Body temperature 98.1 [degF] Kelli Monte Other [facility] Other 01-12-2023 17:50-0500 Body weight 87.09 kg Kelli Monte Other [facility] Other 01-12-2023 17:50-0500 Respiratory rate 18 /min Kelli Monte Other [facility] Other 01-12-2023 17:50-0500 SaO2% (BldA) [Mass fraction] 95 % Kelli Monte Other [facility] Other 07-21-2022 13:05-0400 Body height 167.64 cm Kelli Monte Other [facility] Other 07-21-2022 13:05-0400 Body mass index (BMI) [Ratio] 31.95 kg/m2 Kelli Monte Other [facility] Other 07-21-2022 13:05-0400 Body temperature 98.3 [degF] Kelli Monte Other [facility] Other 07-21-2022 13:05-0400 Body weight 89.81 kg Kelli Monte Other [facility] Other 07-21-2022 13:05-0400 Diastolic blood pressure 82 mm[Hg] Kelli Monte Other [facility] Other 07-21-2022 13:05-0400 Respiratory rate 18 /min Kelli Monte Other [facility] Other 07-21-2022 13:05-0400 SaO2% (BldA) [Mass fraction] 96 % Kelli Monte Other [facility] Other 07-21-2022 13:05-0400 Systolic blood pressure 145 mm[Hg] Kelli Monte Other [facility] Other 01-24-2021 15:45-0500 Body height 167.64 cm Mary Bowens Other [facility] Other 01-24-2021 15:45-0500 Body temperature 101 [degF] Mary Bowens Other [facility] Other 01-24-2021 15:45-0500 Respiratory rate 18 /min Mary Bowens Other [facility] Other 01-24-2021 15:45-0500 SaO2% (BldA) [Mass fraction] 95 % Mary Bowens Other [facility] Other Encounters Encounter Date Encounter Type Care Provider Facility Start: 08-22-2024 End: 08-22-2024 Steven Robles MD Work Phone: [facility] Start: 08-22-2024 End: 08-22-2024 Steven Robles MD Work Phone: [facility] Start: 08-22-2024 End: 08-22-2024 Office outpatient visit 25 minutes Kiet Robles MD Work Phone: [facility] Comment on above: Mixed hyperlipidemia ; Pre-diabetes; Stage 2 chronic kidney disease; Sleep initiation disorder; Cigarette smoker; Polypharmacy; Non morbid obesity due to excess calories Start: 08-22-2024 End: 08-22-2024 ambulatory KIET ROBLES Not Available Start: 08-01-2024 End: 08-01-2024 Telephone encounter Irene Moran PT Work Phone: [facility] Start: 07-31-2024 End: 07-31-2024 Bamboo flowsheet Irene Moran PT Work Phone: [facility] Start: 07-31-2024 End: 07-31-2024 Bamboo flowsheet Irene Moran PT Work Phone: [facility] Start: 07-31-2024 End: 07-31-2024 ambulatory Irene Moran PT Work Phone: [facility] Comment on above: Cervicalgia (Primary Dx); BPPV (benign paroxysmal positional vertigo), left Start: 07-18-2024 End: 07-18-2024 Bamboo flowsheet Sulaiman Meyer MD Work Phone: [facility] Start: 07-18-2024 End: 07-18-2024 Bamboo denise Meyer MD Work Phone: [facility] Start: 07-18-2024 End: 07-18-2024 ambulatory SULAIMAN MEYER Not Available Start: 07-18-2024 End: 07-18-2024 Office outpatient new 45 minutes Sulaiman Meyer MD Work Phone: [facility] Comment on above: BPPV (benign paroxys mal positional vertigo), left (Primary Dx); Sensorineural hearing loss (SNHL), bilateral; Bilateral tinnitus Start: 07-17-2024 End: 07-17-2024 Bamboo flowsheet Livier Ambrosio CCC-A Work Phone: [facility] Start: 07-17-2024 End: 07-17-2024 Bamboo flowsheet Livier Ambrosio CCC-A Work Phone: [facility] Start: 07-17-2024 End: 07-17-2024 Clinical Support Livier Ambrosio CCC-A Work Phone: [facility] Comment on above: Sensorineural hearin g loss (SNHL) of both ears (Primary Dx); Tinnitus, bilateral; Vertigo Start: 06-06-2024 End: 06-06-2024 ambulatory KIET ROBLES Not Available Start: 05-18-2024 End: 05-18-2024 Bamboo flowsnoelle Robles MD Work Phone: [facility] Start: 05-18-2024 End: 05-18-2024 Bamboo flowsnoelle Robles MD Work Phone: [facility] Start: 05-18-2024 End: 05-18-2024 Office outpatient visit 25 minutes Kiet Robles MD Work Phone: [facility] Comment on above: Vertigo (Primary Dx) ; Nystagmus; Ataxia; Romberg test positive; Eosinophilic granuloma of bone (CMS/HCC) Start: 05-18-2024 End: 05-18-2024 ambulatory KIET ROBLES Not Available Start: 05-11-2024 End: 05-11-2024 ambulatory KIET ROBLES Not Available Start: 02-22-2024 End: 02-22-2024 Bamboo flowsnoelle Robles MD Work Phone: [facility] Start: 02-22-2024 End: 02-22-2024 Bamboo flowsnoelle Robles MD Work Phone: [facility] Start: 02-22-2024 End: 02-22-2024 Office outpatient visit 25 minutes Kiet Robles MD Work Phone: [facility] Comment on above: Obstructive sleep ap derek (Primary Dx); Mixed hyperlipidemia (CMS/HCC); Stage 2 chronic kidney disease; Pre-diabetes; Sleep initiation disorder; Cigarette smoker; Polypharmacy; Non morbid obesity due to excess calories Start: 02-22-2024 End: 02-22-2024 ambulatory KIET ROBLES Not Available Start: 12-01-2023 End: 12-01-2023 Office outpatient visit 25 minutes Kiet Robles MD Work Phone: [facility] Comment on above: Cellulitis of right leg (Primary Dx); Abscess of right leg; Polypharmacy; Cigarette smoker Start: 12-01-2023 End: 12-01-2023 ambulatory KIET ROBLES Not Available Start: 12-01-2023 End: 12-01-2023 Bamboo flowsheet Kiet Robles MD Work Phone: [facility] Start: 12-01-2023 End: 12-01-2023 Bamboo flowsheet Kiet Robles MD Work Phone: [facility] Start: 11-17-2023 End: 11-17-2023 Bamboo flowsheet Kiet Robles MD Work Phone: [facility] Start: 11-17-2023 End: 11-17-2023 Bamboo flowsheet Kiet Robles MD Work Phone: [facility] Start: 11-17-2023 End: 11-17-2023 Office outpatient visit 15 minutes Kiet Robles MD Work Phone: [facility] Comment on above: Acute viral syndrome (Primary Dx); Acute cough Start: 11-17-2023 End: 11-17-2023 ambulatory KIET ROBLES Not Available Start: 11-08-2023 End: 11-08-2023 Bamboo flowsheet Kiet Robles MD Work Phone: [facility] Start: 11-08-2023 End: 11-08-2023 Bamboo flowsnoelle Robles MD Work Phone: [facility] Start: 11-08-2023 End: 11-08-2023 Patient encounter status Kiet Robles MD Work Phone: [facility] Start: 11-08-2023 End: 11-08-2023 Periodic preventive med est patient 40-64yrs Kiet Robles MD Work Phone: [facility] Comment on above: Encounter for wellne ss examination in adult; Advance directive discussed with patient; Encounter for screening for malignant neoplasm of colon; Screening mammogram, encounter for; Screening for osteoporosis; History of hysterectomy; Menopause; Left lower quadrant abdominal pain; Hematuria, unspecified type; Multiple kidney stones; Lung nodule Start: 11-08-2023 End: 11-08-2023 ambulatory KIET ROBLES Not Available Start: 10-21-2023 End: 10-21-2023 ambulatory KIET ROBLES Not Available Start: 10-14-2023 End: 10-14-2023 Bamboo flowsheet Kiet Robles MD Work Phone: [facility] Start: 10-14-2023 End: 10-14-2023 Bamboo flowsheet Kiet Robles MD Work Phone: [facility] Start: 10-14-2023 End: 10-14-2023 Office outpatient visit 25 minutes Kiet Robles MD Work Phone: [facility] Comment on above: Left lower quadrant abdominal pain; Peritonitis (CMS/HCC); Nausea without vomiting; Hematuria, unspecified type; Polypharmacy; Non morbid obesity due to excess calories Start: 10-14-2023 End: 10-14-2023 ambulatory KIET ROBLES Not Available Start: 09-16-2023 End: 09-16-2023 ambulatory KIET ROBLES Not Available Start: 09-13-2023 End: 09-13-2023 ambulatory [facility] Work Phone: Start: 09-13-2023 End: 09-13-2023 Patient encounter procedure [facility] [place] Work Phone: Start: 03-09-2023 End: 03-09-2023 Office outpatient visit 25 minutes Kiet Robles MD Work Phone: [facility] Comment on above: Mixed hyperlipidemia (CMS/HCC) (Primary Dx); Obstructive sleep apnea; CPAP (continuous positive airway pressure) dependence; Sleep initiation disorder; Cigarette smoker; Non morbid obesity due to excess calories; Pre-diabetes; Stage 2 chronic kidney disease; Polypharmacy; Right bundle branch block Start: 01-12-2023 End: 01-12-2023 ambulatory Kelli Monte Other [facility] Other Start: 01-12-2023 Office outpatient vi sit 25 minutes Kelli Motne [facility] [place] Start: 07-21-2022 Office outpatient vi sit 15 minutes Kelli Monte [facility] [place] Start: 07-21-2022 End: 07-21-2022 ambulatory Kelli Romulo Monte [facility] Work Phone: Start: 07-21-2022 End: 07-21-2022 Patient encounter procedure DAYCARE MANAGER Kelli Monte Work Phone: [facility] [place] Work Phone: Start: 03-13-2021 End: 03-14-[address] KIET ROBLES Facility:[facility] Start: 01-29-2021 End: 01-29-[address] KIET ROBLES Facility:[facility] Start: 01-24-2021 End: 01-24-2021 ambulatory Mary Bowens Other [facility] Other Start: 01-24-2021 Office outpatient vi sit 15 minutes Mary Bowens [facility] [place] Start: 01-19-2021 End: 01-19-[address] KIET ROBLES Facility:[facility] Procedures Date Procedure Procedure Detail Performing Clinician Start: 07-17-2024 AUDITORY FUNCTION TESTS Livier Ambrosio [facility] Work Phone: Start: 11-26-2023 Mammography Kiet Robles MD Work Phone: Start: 07-29-2022 H/O: hysterectomy History of hysterectomy Kiet Marrero Work Phone: Start: 07-21-2022 X-ray of left ankle DAYCARE MANAGER Kelli Monte Work Phone: Start: 03-13-2021 Mammography Kiet Robles MD Work Phone: H/O: hysterectomy History of hysterectomy Kiet Robles MD Work Phone: Plan of Treatment Date Care Activity Detail Author Start: 02-19-2025 End: 02-19-2025 Patient encounter procedure 02/19/2025 10:00 AM EST Office Visit [facility] [address] [place] [address] Kiet Robles MD [address] [place] [address] (Fax) [facility] Start: 11-25-2024 Screening for malign ant neoplasm of breast Mammogram [facility] Start: 10-16-2024 Influenza vaccination [facility] Start: 08-22-2024 End: 08-22-2024 Patient encounter procedure [facility] Comment on above: Mixed hyperlipidemia ; Pre-diabetes; Stage 2 chronic kidney disease; Sleep initiation disorder; Cigarette smoker; Polypharmacy; Non morbid obesity due to excess calories Start: 07-31-2024 End: 07-31-2024 ambulatory 07/31/2024 12:00 PM EDT Evaluation [facility] [address] [place] [address] Irene Moran, PT [address] [place] [address] Cervicalgia (Primary Dx); BPPV (benign paroxysmal positional vertigo), left [facility] Comment on above: Cervicalgia (Primary Dx); BPPV (benign paroxysmal positional vertigo), left Start: 07-22-2024 End: 02-21-2025 Comprehensive metabolic 2000 panel - Serum or Plasma Comprehensive metabolic panel Lab Routine Stage 2 chronic kidney disease Pre-diabetes Expected: 07/22/2024, Expires: 02/21/2025 [facility] Work Phone: Comment on above: Expected: 07/22/2024 , Expires: 02/21/2025 Start: 07-22-2024 End: 02-21-2025 Lipid 1996 panel - Serum or Plasma Lipid panel Lab Routine Mixed hyperlipidemia (CMS/HCC) Expected: 07/22/2024, Expires: 02/21/2025 [facility] Comment on above: Expected: 07/22/2024 , Expires: 02/21/2025 Start: 07-18-2024 End: 07-18-2024 Patient encounter procedure 07/18/2024 10:50 AM EDT Office Visit [facility] [address] [facility] [address] [place] [phone] Sulaiman Meyer MD [address] [place] [address] [facility] Start: 07-17-2024 End: 07-17-2024 Clinical Support 07/17/2024 10:15 AM EDT Clinical Support [facility] [address] [facility] [address] [place] [id number] Livier Ambrosio, [facility] [address] [place] [address] Arrived [facility] Comment on above: Arrived Start: 05-31-2024 End: 05-31-2025 MR Brain WO contrast MR brain wo contrast Imaging Routine Vertigo Nystagmus Ataxia Romberg test positive Expected: 05/31/2024, Expires: 05/31/2025 [facility] Work Phone: Comment on above: Expected: 05/31/2024 , Expires: 05/31/2025 Start: 02-22-2024 End: 02-22-2024 Patient encounter procedure [facility] Comment on above: Mixed hyperlipidemia (CMS/HCC); Sleep initiation disorder; Stage 2 chronic kidney disease; Pre-diabetes; Cigarette smoker; Polypharmacy; Non morbid obesity due to excess calories Start: 01-03-2024 Influenza vaccination Influenza Vacc ine (#1) [facility] Comment on above: Postponed from 10/16 (Patient Refused) Start: 12-01-2023 End: 12-01-2023 Patient encounter procedure 12/01/2023 2:30 PM EDT Office Visit [facility] [address] [facility] [address] [place] [address] Kiet Robles MD [address] [facility] [place], [place] [id number] Arrived [facility] Comment on above: Arrived Start: 11-17-2023 End: 11-17-2023 Patient encounter procedure 11/17/2023 11:45 AM EDT Office Visit [facility] [address] [place] [address] Kiet Robles MD [address] [place] [address] (Fax) Arrived [facility] Comment on above: Arrived Start: 11-08-2023 End: 01-07-2025 MG Breast - bilateral Screening Bilateral screening mammogram Imaging Routine Screening mammogram, encounter for Expected: 11/08/2023, Expires: 01/07/2025 [facility] Work Phone: Comment on above: Expected: 11/08/2023 , Expires: 01/07/2025 Start: 11-08-2023 End: 11-08-2023 Patient encounter procedure 11/08/2023 10:00 AM EDT Office Visit [facility] [address] [address] Kiet Robles MD [address] [place] [address] (Fax) Encounter for wellness examination in adult; Advance directive discussed with patient; Encounter for screening for malignant neoplasm of colon; Screening mammogram, encounter for; Screening for osteoporosis; History of hysterectomy; Menopause; Left lower quadrant abdominal pain; Peritonitis (CMS/HCC); Hematuria, unspecified type; Multiple kidney stones; Lung nodule [facility] Comment on above: Encounter for wellne ss examination in adult; Advance directive discussed with patient; Encounter for screening for malignant neoplasm of colon; Screening mammogram, encounter for; Screening for osteoporosis; History of hysterectomy; Menopause; Left lower quadrant abdominal pain; Peritonitis (CMS/HCC); Hematuria, unspecified type; Multiple kidney stones; Lung nodule Start: 10-25-2023 End: 10-25-2023 Patient encounter procedure 10/25/2023 10:00 AM EDT Office Visit [facility] [address] [address] Kiet Robles MD [address] [place] [address] (Fax) [facility] Start: 10-17-2023 Influenza vaccination Influenza Vacc ine (#1) [facility] Start: 10-14-2023 End: 10-13-2024 CT Abdomen and Pelvis W contrast IV CT abdomen pelvis w IV contrast Imaging Routine Left lower quadrant abdominal pain Hematuria, unspecified type Nausea without vomiting Peritonitis (CMS/HCC) Expected: 10/14/2023, Expires: 10/13/2024 [facility] Work Phone: Comment on above: Expected: 10/14/2023 , Expires: 10/13/2024 Start: 10-14-2023 End: 10-14-2023 Patient encounter procedure 10/14/2023 2:00 PM EDT Office Visit [facility] [address] [address] Kiet Robles MD [address] [place] [address] (Fax) Arrived [facility] Comment on above: Arrived Start: 08-30-2023 End: 08-30-2023 Patient encounter procedure 08/30/2023 10:00 AM EDT Office Visit [facility] [address] [place] [address] Kiet Robles MD [address] [place] [address] (Fax) [facility] Start: 08-08-2023 End: 03-09-2024 Comprehensive metabolic 2000 panel - Serum or Plasma Comprehensive metabolic panel Lab Routine Pre-diabetes Stage 2 chronic kidney disease Expected: 08/08/2023, Expires: 03/09/2024 [facility] Work Phone: Comment on above: Expected: 08/08/2023 , Expires: 03/09/2024 Start: 08-08-2023 End: 03-09-2024 Lipid 1996 panel - Serum or Plasma Lipid panel Lab Routine Mixed hyperlipidemia (CMS/HCC) Expected: 08/08/2023, Expires: 03/09/2024 [facility] Comment on above: Expected: 08/08/2023 , Expires: 03/09/2024 Start: 10-16-2022 Influenza vaccination Influenza Vacc ine (#1) [facility] Start: 03-13-2022 Screening for malign ant neoplasm of breast Mammogram [facility] Start: 1965 Screening for malign ant neoplasm of colon [facility] Immunizations Immunization Date Immunization Notes Care Provider Fa [facility] 12-26-2019 influenza, injectabl e, quadrivalent, preservative free Kiet Robles MD Work Phone: [facility] 12-26-2019 influenza virus vacc ine, unspecified formulation Kiet Robles MD Work Phone: [facility] 12-01-2018 influenza, injectabl e, quadrivalent, preservative free Kiet Robles MD Work Phone: [facility] 11-21-2018 influenza, seasonal, injectable Kiet Robles MD Work Phone: [facility] 11-22-2017 influenza, injectabl e, quadrivalent, preservative free Kiet Robles MD Work Phone: [facility] Payers Date Payer Category Payer Private Health Insurance [id number] 2022 Private Health Insurance [id number] 2022 Self-pay [id number] 1967 Unknown [id number] 2.16.84 [id number] 1967 Unknown [id number] 2.16.84 [id number] 1967 Unknown [id number] 2.16.84 [id number] 1967 Unknown [id number] 2.16.8 [id number] 1967 Unknown [id number] 2.16.8 [id number] 1967 Unknown [id number] 2.16.8 [id number] 1967 Unknown [id number] 2.16.84 0.1.214758.3.579.2.1258 1967 Unknown [id number] 2.16.84 0.1.484083.3.579.2.1258 1967 Unknown [id number] 2.16.84 0.1.787632.3.579.2.1258 1967 Unknown [id number] 2.16.84 0.1.775208.3.579.2.1258 1967 Unknown [id number] 2.16.84 0.1.289591.3.579.2.1258 1967 Unknown [id number] 2.16.84 0.1.118745.3.579.2.1258 1967 Unknown [id number] 2.16.84 0.1.167915.3.579.2.1258 1967 Unknown [id number] 2.16.84 0.1.608892.3.579.2.1258 1967 Unknown [id number] 2.16.84 0.1.396763.3.579.2.1258 1967 Unknown [id number] 2.16.84 0.1.887835.3.579.2.1258 1967 Unknown [id number] 2.16.84 0.1.898954.3.579.2.1258 1959 Private Health Insurance [id number] Unknown [id number] 2.16.8 [id number] Social History Date Type Detail Facility Unknown if ever smoked [facility] Other Start: 09-13-2022 End: 09-16-2023 Sex Assigned At [facility] Start: 1965 Sex Assigned At Female [facility] Start: 07-30-2022 End: 08-23-2023 Tobacco smoking status PAIS Smokes tobacco daily [facility] History of tobacco use Cigarette Smoker [facility] Start: 07-30-2022 End: 08-23-2023 Tobacco use and exposure Smokeless tobacco non-user [facility] Start: 03-09-2023 Alcohol intake Current drinke r of alcohol (finding) [facility] Start: 03-09-2023 End: 09-16-2023 Alcohol intake [facility] Within the last year , have you been afraid of your partner or ex-partner? No [facility] Are you now , , , , never or living with a partner? [facility] How often to you hav e a drink containing alcohol? Monthly or less [facility] How many standard drinks containing alcohol do you have on a typical day? 1 or 2 [facility] How often do you hav e 6 or more drinks on 1 occasion? Never [facility] How hard is it for y ou to pay for the very basics like food, housing, medical care, and heating Not hard at all [facility] Do you feel stress - tense, restless, nervous, or anxious, or unable to sleep at night because your mind is troubled all the time - these days [OSQ] Very much [facility] (I/We) worried whecasi er (my/our) food would run out before (I/we) got money to buy more. Never true [facility] Start: 1965 Sex Assigned At Not on file [facility] Start: 09-13-2023 Tobacco smoking stat us [facility] Smoker (finding) [facility] Start: 11-08-2023 End: 08-22-2024 Alcoholic beverage intake Ex-drinker (finding) [facility] Do you feel stress - tense, restless, nervous, or anxious, or unable to sleep at night because your mind is troubled all the time - these days [OSQ] To some extent [facility] Clinical Notes 01-24-2021 to 08-22-2024 Kiet Robles MD - 08/22/2024 10:00 AM JUDETIrene Moran, PT - 08/01/2024 9:31 AM Benji Meyer MD - 07/18/2024 10:50 AM JUDETLivier Ambrosio [facility] - 07/17/2024 10:15 AM EDT Note Date & Type Note Facility 08-22-2024 History of Presen t illness Narrative Images from the original note were not included. Patient ID: Chayito Church is a 59 y.o. female who presents for: Needs a Colonoscopy or Cologuard Hyperlipidemia Pt who presents for follow-up of dyslipidemia. A repeat fasting lipid profile was done. The patient does not use medications that may worsen dyslipidemias (corticosteroids, progestins, anabolic steroids, diuretics, beta-blockers, amiodarone, cyclosporine, olanzapine). Exercise: rarely. Sleep Disorder: Onset of symptoms has been several years. How many hours of sleep is patient getting on average night: varies 6-8 How long does it take patient to get to sleep each night: varies up to an hour Does he/she have trouble falling asleep: no, varies Does he/she have trouble maintaining sleep: no Does patient have good sleep hygiene: yes Insulin Resistance: Pt is on Metformin for her/his glucose intolerance and/or insulin resistance and has been for many years. She/He denies any side effects and will be in need of a refill today. Review Results: Patient is here in the office today to review recent labs or diagnostic imaging with Dr Jude Robles per his request. Based on the results they will also review treatment options. Please see labs scanned. Review of Systems Constitutional: Negative for activity change and fatigue. Respiratory: Negative for cough, shortness of breath and wheezing. Cardiovascular: Negative for chest pain, palpitations and leg swelling. Neurological: Negative for light-headedness and headaches. Objective The patient is pleasant and in no acute distress. The neck is supple and trachea is midline. No masses are appreciated. The heart is regular rate and rhythm without S3, S4. No murmur. The patient has normal respiratory pattern. The breath sounds are symmetrical without evidence of rhonchi or rales. No wheezing. The skin is warm and dry. The lower extremities have trace edema. The patient has good eye contact and speech is clear. Appropriate affect. 11/08/2023 9:58 AM 11/17/2023 11:38 AM 12/01/2023 2:30 PM 02/22/2024 9:57 AM 05/18/2024 9:06 AM 07/18/2024 10:51 AM 08/22/2024 9:53 AM Vitals BMI 30.02 kg/m2 30.02 kg/m2 30.02 kg/m2 30.02 kg/m2 30.02 kg/m2 30.1 kg/m2 BSA (m2) 1.98 m2 1.98 m2 1.98 m2 1.98 m2 1.98 m2 1.98 m2 Systolic 130 147 128 Diastolic 78 65 78 Heart Rate 83 106 85 95 77 SpO2 98 % 99 % 97 % 97 % Height (in) 5' 6 5' 6 5' 6 5' 6 5' 6 5' 6 Weight (lb) 186 186 186 186 186 186.5 Visit Report Report Report Report Report Report Report Report No Known Allergies Current Outpatient Medications on File Prior to Visit Medication Sig Dispense Refill ASPIRIN 81 MG chewable tablet Chew 81 mg 3 (three) times a week azelastine (Astelin) 0.1 % nasal spray Administer 2 sprays into each nostril in the morning and 2 sprays before bedtime. bisacodyl (Dulcolax) 5 MG EC tablet Take 5 mg by mouth Daily as needed diphenhydrAMINE (Benadryl Allergy) 25 MG capsule Take 25 mg by mouth every 8 (eight) hours if needed ibuprofen 200 MG tablet Take 200 mg by mouth every 8 (eight) hours if needed No current facility-administered medications on file prior to visit. 1. Mixed hyperlipidemia Chronic problem, stable, continues to be mildly abnormal with her labs. We have previously discussed lifestyle changes including diet and exercise. We discussed increasing the atorvastatin. She states she would like to work a little bit more diligently at the lifestyle changes we will continue her current dosing. - atorvastatin (Lipitor) 40 MG tablet; Take 1 tablet (40 mg) by mouth at bedtime Dispense: 90 tablet; Refill: 1 2. Pre-diabetes Chronic problem that is stable but still not well controlled. Fasting blood sugar of 104. In prescribing a renewal to their current medication, consideration of the following encompasses moderate decision making; the current prescriptions and supplements, the current allergies and medication intolerances, current medical conditions, and potential drug interactions. The patient was given a chance to ask questions today and all questions were answered. - metFORMIN XR (Glucophage-XR) 750 MG 24 hr tablet; Take 1 tablet (750 mg) by mouth in the morning and 1 tablet (750 mg) before bedtime. Do not crush, chew, or split. Dispense: 180 tablet; Refill: 3 3. Stage 2 chronic kidney disease Chronic problem, stable, defining the end organ damage of the nephropathy. I stressed the importance of keeping blood pressure and blood sugar to goal, staying well hydrated, and aerobic exercises as tolerated. Continue to monitor longitudinally. 4. Sleep initiation disorder Chronic problem that is actually relatively stable for her and she is off of the trazodone. We briefly reviewed sleep hygiene. 5. Cigarette smoker Chronic problem that is unstable. The patient continues to use tobacco products or nicotine. Your goal is to quit using tobacco or vapor, as it significantly worsens health risks and complicates treatments. The patient was given a chance to ask questions and they declined medical intervention. Approximatley 5 minutes was spent on counseling 6. Polypharmacy Chronic problem The patient meets the criteria for polypharmacy; 5 or more prescriptions or multi-morbidity defined as 5 or more diagnoses. Polypharmacy can significantly increase the risk of adverse drug events and negatively impact adherence. Consideration of factors such as clinician agreement, patient perspective, and de-prescribing, as appropriate can improve patient outcomes while simplifying care. This requires longitudinal monitoring as there is at least a moderate risk of morbidity and requires at least a moderate degree of evaluation and management. 7. Non morbid obesity due to excess calories As noted above encouraged lifestyle changes documented in this encounter [facility] 08-01-2024 History of Presen t illness Narrative 08/01/24: Patient called this morning reporting she has returned to normal following yesterdays BPPV maneuvers. She was able to roll to both side, stoop, and was unable to reproduce familiar spinning type vertigo. Patient grateful for services provided. Patient encouraged to call for additional treatment if incomplete resolution. No additional PT is needed at this time. documented in this encounter [facility] 07-18-2024 History of Presen t illness Narrative Subjective Patient ID: Chayito Church is a 59 y.o. female who presents for Vertigo (Audio 07/17/24) Pt reports a 3-4 year h/o intermittent vertigo. Primarily occurs when she lays down and rolls to the left. Also c/o kg tinnitus. Audio shows symmetric moderate kg SNHL. MRI obtained that shows no otologic path and scant kg maxillary sinus fluid. Review of Systems All other systems reviewed and are negative. Family History Problem Relation Name Age of Onset Hearing loss Mother Lexi Hale Hypertension Mother Lexi Hale Heart disease Father Mak Hale CABG Rheum arthritis Father Mak Hale Hearing loss Father Mak Hale No Known Problems Sister No Known Problems Brother No Known Problems Daughter No Known Problems Son Active Ambulatory Problems Diagnosis Date Noted Benign paroxysmal positional vertigo 07/29/2022 Cigarette smoker 07/29/2022 CPAP (continuous positive airway pressure) dependence 07/29/2022 History of hysterectomy 07/29/2022 Mixed hyperlipidemia (CMS/HCC) 07/29/2022 Non morbid obesity due to excess calories 07/29/2022 Obstructive sleep apnea 07/29/2022 Old inferior wall myocardial infarction (CMS/HCC) 07/29/2022 Right bundle branch block 07/29/2022 Sleep initiation disorder 03/09/2023 Polypharmacy 03/19/2023 Stage 2 chronic kidney disease 03/19/2023 Pre-diabetes 03/19/2023 Multiple pulmonary nodules 11/08/2023 Resolved Ambulatory Problems Diagnosis Date Noted Chronic idiopathic urticaria 07/29/2022 Past Medical History: Diagnosis Date Angina pectoris Brain tumor (benign) (CMS/HCC) Dyspnea and respiratory abnormalities Former smoker Nondependent tobacco use disorder Sleep apnea Past Surgical History: Procedure Laterality Date DILATION AND CURETTAGE X 4 PARTIAL HYSTERECTOMY 02/2014 TUMOR EXCISION 1994 brain No Known Allergies Current Outpatient Medications on File Prior to Visit Medication Sig Dispense Refill ASPIRIN 81 MG chewable tablet Chew 81 mg 3 (three) times a week atorvastatin (Lipitor) 40 MG tablet Take 1 tablet (40 mg) by mouth at bedtime 90 tablet 1 azelastine (Astelin) 0.1 % nasal spray Administer 2 sprays into each nostril in the morning and 2 sprays before bedtime. bisacodyl (Dulcolax) 5 MG EC tablet Take 5 mg by mouth Daily as needed diphenhydrAMINE (Benadryl Allergy) 25 MG capsule Take 25 mg by mouth every 8 (eight) hours if needed ibuprofen 200 MG tablet Take 200 mg by mouth every 8 (eight) hours if needed metFORMIN XR (Glucophage-XR) 750 MG 24 hr tablet Take 1 tablet (750 mg) by mouth in the morning and 1 tablet (750 mg) before bedtime. Do not crush, chew, or split.. 180 tablet 3 traZODone (Desyrel) 50 MG tablet Take 1/2 to 2 tablets at bedtime 60 tablet 0 No current facility-administered medications on file prior to visit. Objective Last Recorded Vitals Vitals: 07/18/24 1051 BP: 147/65 Pulse: 95 ENT Physical Exam Constitutional Appearance: patient appears well-developed, well-nourished and well-groomed, Constitutional comments: Strongly positive LEFT [place]. Head and Face Appearance: head appears normal and face appears atraumatic; Ear Ear Canals: right ear canal normal; left ear canal normal; Tympanic Membranes: right tympanic membrane normal; left tympanic membrane normal; Nose External Nose: nares patent bilaterally; external nose normal; Internal Nose: septum normal; Oral Cavity/Oropharynx Tongue: normal; Oral mucosa: normal; Hard palate: normal; Soft palate: normal; Tonsils: normal; Neck Neck: neck normal; neck palpation normal; Thyroid: thyroid normal; Respiratory Inspection: breathing unlabored; normal breathing rate; Auscultation: breath sounds are clear; Cardiovascular Inspection: extremities are warm and well perfused; no peripheral edema present; Auscultation: regular rate and rhythm; Assessment/Plan Diagnoses and all orders for this visit: BPPV (benign paroxysmal positional vertigo), left Sensorineural hearing loss (SNHL), bilateral Bilateral tinnitus Pt very clearly has LEFT BPPV. I will send a referral to [facility] for a left [place] Kg tinnitus is c/w pt's kg SNHL. She is very close to needing HATCH, and almost certainly will at some point documented in this encounter [facility] 07-17-2024 History of Presen t illness Narrative History: Pt was referred to ENT because of vertigo and chronic max sinusitis. Vertigo is episodic, onset years ago. Bending down and coming back up and rolling to the left side makes the vertigo worse. Pt reports constant tinnitus. She thinks her hearing may be a little decreased. Pt denies excessive exposure to noise, otalgia, and frequent ear infections. Pt stated her ears itch often and she gets sores on the outside of her ear (near helix.) Otoscopic Exam: Ear canal clear and TM intact AU Pure Tone Audiometry Right Ear: Mild to sensorineural hearing loss from 500 Hz - 2K Hz rising to normal hearing at 3K Hz. Mild sensorineural hearing loss at 4K Hz rising to normal hearing from 6K Hz - 8K Hz Left Ear: Mild to sensorineural hearing loss from 500 Hz - 2K Hz rising to normal hearing above 2K Hz. Speech Audiometry Right SRT = 30 dB and word discrimination score at 50 dBHL= 100% Left SRT = 25 dB and word discrimination score at 50 dBHL= 100% Tympanometry Right Ear: Type A tympanogram Left Ear: Type A tympanogram documented in this encounter [facility] 05-18-2024 History of Presen t illness Narrative Images from the original note were not included. Patient ID: Chayito Church is a 59 y.o. female who presents for: Vertigo/Dizziness: He/She complains of dizziness. The dizziness has been present for 3 days. No trauma or other illness. He/She describes the symptoms as vertigo. Symptoms are exacerbated by rapid head movements, rolling over in bed, rising from supine position, and bending. He/She also complains of R > L tinnitus. He/She has been treated with meclizine (Antivert) with minimal intermittent improvement. She complains of some intermittent horizontal double vision. She knows she has some hearing loss, but not over the last several days. Review of Systems Constitutional: Negative for chills and fever. HENT: Positive for sinus pain and tinnitus. Negative for trouble swallowing. Eyes: Positive for visual disturbance (Just the double vision is noted). Negative for photophobia, pain and redness. Respiratory: Negative for shortness of breath. Cardiovascular: Negative for chest pain and palpitations. Musculoskeletal: Negative for gait problem. Neurological: Positive for headaches. Negative for speech difficulty. Objective In general the patient is pleasant and in no acute distress. Bilateral ears, canals are within normal limits. Right TM is transparent and somewhat retracted. Left TM is transparent and somewhat retracted. No fluid layer. Bilateral nares demonstrate inflamed mucosa. The eyes do not demonstrate icterus or erythema. Her pupils are slightly different diameter right slightly bigger than left. Otherwise they were equal reactive and round to light. Having her track my finger with her eyes only there is a horizontal nystagmus bilaterally but significantly worse with the right gaze. Up and down appears normal inward tracking appears to be normal. Oropharynx has moist mucosa there is no specific evidence of thrush. There is mild erythema of the pharynx. Tongue is midline [place] bilateral anterior cervical adenopathy. No signs of respiratory distress. Patient is speaking full sentences. The neck is supple with just some mild bilateral paraspinal hypertonicity. Mild decreased range of motion in all garcia. She does have a tandem gait, but is slightly wide-based and unsteady consistent with ataxia. Positive Romberg test. Skin is warm and dry Visit Vitals Ht 5' 6 Wt 186 lb BMI 30.02 kg/m OB Status Hysterectomy Smoking Status Every Day BSA 1.98 m No Known Allergies Current Outpatient Medications on File Prior to Visit Medication Sig Dispense Refill ASPIRIN 81 MG chewable tablet Chew 81 mg 3 (three) times a week. atorvastatin (Lipitor) 40 MG tablet Take 1 tablet (40 mg) by mouth at bedtime 90 tablet 1 azelastine (Astelin) 0.1 % nasal spray Administer 2 sprays into each nostril in the morning and 2 sprays before bedtime. bisacodyl (Dulcolax) 5 MG EC tablet Take 5 mg by mouth Daily as needed. diphenhydrAMINE (Benadryl Allergy) 25 MG capsule Take 25 mg by mouth every 8 (eight) hours if needed. ibuprofen 200 MG tablet Take 200 mg by mouth every 8 (eight) hours if needed. metFORMIN XR (Glucophage-XR) 750 MG 24 hr tablet Take 1 tablet (750 mg) by mouth in the morning and 1 tablet (750 mg) before bedtime. Do not crush, chew, or split.. 180 tablet 3 traZODone (Desyrel) 50 MG tablet Take 1/2 to 2 tablets at bedtime 60 tablet 0 No current facility-administered medications on file prior to visit. There was a delay in my getting her chart finished and the test ordered. As of yesterday 05/30/2024, she is still symptomatic. 1. Vertigo (Primary) She has had problems with benign positional vertigo intermittently for years. She has utilized meclizine when she has flare-ups. This feels different to her and the meclizine did not help. Along with all the other diagnoses, in my opinion she deserves diagnostic imaging with an MRI. - MR brain wo contrast; Future 2. Nystagmus New problem. She was not really aware of this until we actually had her do the test and followed to the left in the right. She could actually feel her and see her vision bouncing at the extremes. - MR brain wo contrast; Future 3. Ataxia New problem. She has not fallen. She does feel unsteady and has had to touch furniture and/ or [place] to balance herself. This is also new to her and was not involved in her previous vertigo. - MR brain wo contrast; Future 4. Romberg test positive - MR brain wo contrast; Future 5. Eosinophilic granuloma of bone (CMS/HCC) Previous problem that was many years ago and treated surgically and resolved. There is a chance for recurrence on these tumors. Nothing is palpable here today. documented in this encounter [facility] 02-22-2024 History of Presen t illness Narrative Images from the original note were not included. Patient ID: Chayito Church is a 59 y.o. female who presents for: Hyperlipidemia Pt who presents for follow-up of dyslipidemia. A repeat fasting lipid profile was not done. The patient does not use medications that may worsen dyslipidemias (corticosteroids, progestins, anabolic steroids, diuretics, beta-blockers, amiodarone, cyclosporine, olanzapine). Exercise: rarely. Insulin Resistance: Pt is on Metformin for her/his glucose intolerance and/or insulin resistance and has been for many years. She/He denies any side effects and will be in need of a refill today. Sleep Disorder: Onset of symptoms has been several years. How many hours of sleep is patient getting on average night: 6-7 How long does it take patient to get to sleep each night: 5-10 minutes but varies Does he/she have trouble falling asleep: no Does he/she have trouble maintaining sleep: yes Does patient have good sleep hygiene: yes Review of Systems Constitutional: Negative for activity change and fatigue. Respiratory: Negative for cough, shortness of breath and wheezing. Cardiovascular: Negative for chest pain, palpitations and leg swelling. Neurological: Negative for light-headedness and headaches. Objective The patient is pleasant and in no acute distress. The neck is supple and trachea is midline. No masses are appreciated. The heart is regular rate and rhythm without S3, S4. No murmur. The patient has normal respiratory pattern. The breath sounds are symmetrical without evidence of rhonchi or rales. No wheezing. The skin is warm and dry. The lower extremities have trace edema. The patient has good eye contact and speech is clear. Appropriate affect. Visit Vitals Pulse 85 Ht 5' 6 Wt 186 lb SpO2 97% BMI 30.02 kg/m OB Status Hysterectomy Smoking Status Every Day BSA 1.98 m No Known Allergies Current Outpatient Medications on File Prior to Visit Medication Sig Dispense Refill ASPIRIN 81 MG chewable tablet Chew 81 mg 3 (three) times a week. atorvastatin (Lipitor) 40 MG tablet Take 1 tablet (40 mg) by mouth at bedtime 90 tablet 1 azelastine (Astelin) 0.1 % nasal spray Administer 2 sprays into each nostril in the morning and 2 sprays before bedtime. bisacodyl (Dulcolax) 5 MG EC tablet Take 5 mg by mouth Daily as needed. diphenhydrAMINE (Benadryl Allergy) 25 MG capsule Take 25 mg by mouth every 8 (eight) hours if needed. ibuprofen 200 MG tablet Take 200 mg by mouth every 8 (eight) hours if needed. metFORMIN XR (Glucophage-XR) 750 MG 24 hr tablet Take 1 tablet (750 mg) by mouth in the morning and 1 tablet (750 mg) before bedtime. Do not crush, chew, or split.. 180 tablet 3 traZODone (Desyrel) 50 MG tablet Take 1/2 to 2 tablets at bedtime 60 tablet 0 No current facility-administered medications on file prior to visit. 1. Mixed hyperlipidemia ([facility]) In prescribing a renewal to their current medication, consideration of the following encompasses moderate decision making; the current prescriptions and supplements, the current allergies and medication intolerances, current medical conditions, and potential drug interactions. Any changes to risks, benefits, and reason for renewing their current medication due to the above were discussed. The patient was given a chance to ask questions today and all questions were answered. The patient is to contact us if any other questions arise or if any problems occur. (Utilizing the original 1994/1996 guidelines or the 2020 office/outpatient code guidelines for selecting the level of E/M service, In both sets of guidelines, prescription drug management appears in the moderate medical decision making (MDM) row. Neither the original guidelines nor the new guidelines state that a new prescription or change is needed in order to credit prescription drug management) - atorvastatin (Lipitor) 40 MG tablet; Take 1 tablet (40 mg) by mouth at bedtime Dispense: 90 tablet; Refill: 1 - Lipid panel; Future - Lipid panel 2. Stage 2 chronic kidney disease - Comprehensive metabolic panel; Future - Comprehensive metabolic panel 3. Pre-diabetes - metFORMIN XR (Glucophage-XR) 750 MG 24 hr tablet; Take 1 tablet (750 mg) by mouth in the morning and 1 tablet (750 mg) before bedtime. Do not crush, chew, or split.. Dispense: 180 tablet; Refill: 3 - Comprehensive metabolic panel; Future - Comprehensive metabolic panel 4. Sleep initiation disorder Chronic problem, currently sleeping well with the trazodone. Some trouble still initiating sleep sometimes. Overall getting adequate sleep. 5. Cigarette smoker Chronic problem that is unstable. The patient continues to use tobacco products or nicotine. Your goal is to quit using tobacco or vapor, as it significantly worsens health risks and complicates treatments. The patient was given a chance to ask questions and they declined medical intervention. 6. Polypharmacy Chronic problem The patient meets the criteria for polypharmacy; 5 or more prescriptions or multi-morbidity defined as 5 or more diagnoses. Polypharmacy can significantly increase the risk of preventable adverse drug events and negatively impact adherence. Consideration of diverse factors such as clinician agreement, patient perspective, and de-prescribing, as appropriate can improve patient outcomes while simplifying care. This requires longitudinal monitoring as there is at least a moderate risk of morbidity and requires at least a moderate degree of evaluation and management. 7. Non morbid obesity due to excess calories Encouraged lifestyle changes 8. Obstructive sleep apnea (Primary) Chronic problem patient notes she specifically is utilizing her auto PAP nightly. documented in this encounter [facility] 12-01-2023 History of Presen t illness Narrative Images from the original note were not included. Patient ID: Chayito Church is a 58 y.o. female who presents for: Pt states she has a large abscess on the back of right leg. Usually they will break on their own but this one is not. She states they come and go every other month. She states she does not know if it is squishy Review of Systems Constitutional: Negative for chills and fever. Respiratory: Negative for cough, shortness of breath and wheezing. Cardiovascular: Negative for chest pain and palpitations. Gastrointestinal: Negative for abdominal pain. Genitourinary: Negative for frequency and urgency. Objective Upon entering the room the patient is sitting on the table with the drape on. She has a pulled back. She notes when she pulled the Band-Aid off the abscess ruptured. She has some blood and pus scattered around in this area. The patient is pleasant and in no acute distress The patient has good eye contact and clear speech The areas a very of her inner thigh almost into the inguinal crease. They upon examination there is a small maybe 1/8 inch opening which is oozing some blood and pus. There are 2 bruises noted on each side of this the 1 is about 2-1/2-3 cm in the other ones closer to 2 cm on this cephalad side. 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 With the patient in the frog-leg position, I was able to gently express more pus and some blood from the opening. I would estimate almost a ping pong ball size cavity on the backside of this abscess. The redness of the abscess itself appears to be 2-1/2-3 cm. There is a macular red blanchable area a proximally 5-6 meters going right up into the inguinal crease. After being able to express what I think was most of the pus out and having a small opening we decided to put a knee bandage over this area as she was going to try to return to work. Visit Vitals Ht 5' 6 Wt 186 lb BMI 30.02 kg/m OB Status Hysterectomy Smoking Status Every Day BSA 1.98 m No Known Allergies Current Outpatient Medications on File Prior to Visit Medication Sig Dispense Refill ASPIRIN 81 MG chewable tablet Chew 81 mg 3 (three) times a week. atorvastatin (Lipitor) 40 MG tablet Take 1 tablet (40 mg) by mouth at bedtime 90 tablet 1 azelastine (Astelin) 0.1 % nasal spray Administer 2 sprays into each nostril in the morning and 2 sprays before bedtime. bisacodyl (Dulcolax) 5 MG EC tablet Take 5 mg by mouth Daily as needed. diphenhydrAMINE (Benadryl Allergy) 25 MG capsule Take 25 mg by mouth every 8 (eight) hours if needed. ibuprofen 200 MG tablet Take 200 mg by mouth every 8 (eight) hours if needed. metFORMIN XR (Glucophage-XR) 750 MG 24 hr tablet Take 1 tablet (750 mg) by mouth in the morning and 1 tablet (750 mg) before bedtime. Do not crush, chew, or split.. 180 tablet 3 traZODone (Desyrel) 50 MG tablet Take 1/2 to 2 tablets at bedtime 60 tablet 0 [DISCONTINUED] benzonatate (Tessalon) 200 MG capsule Take 1 capsule (200 mg) by mouth 3 (three) times a day as needed for cough for up to 7 days Do not crush or chew. 21 capsule 0 [DISCONTINUED] predniSONE (Deltasone) 10 MG tablet Every 2 day tapering dose; 5,5,4,4,3,3,2,2,1,1,0.5,0.5 31 tablet 0 No current facility-administered medications on file prior to visit. 1. Cellulitis of right leg (Primary) We talked about clean and dry. We talked about moist heat. We talked about not submerging the leg in a bathtub but okay to shower. If she feels like there is fluctuance building up again underneath, I have asked her to call 1st thing in the morning tomorrow and we will work her in for a formal I and D 2. Abscess of right leg Discussed options In prescribing a new medication consideration of the following encompasses moderate decision making: the current prescriptions and supplements, the current allergies and medication intolerances, the current medical conditions, and potential drug interactions. Risks, benefits, and reason for starting their medication were discussed. The patient was given a chance to ask questions today and all questions were answered. The patient is to contact us if any other questions arise or if any problems occur with the adjustment in their medication. - sulfamethoxazole-trimethoprim (Bactrim DS) 800-160 MG per tablet; Take 1 tablet by mouth in the morning and 1 tablet before bedtime. Do all this for 10 days. Dispense: 20 tablet; Refill: 0 3. Polypharmacy Chronic problem The patient meets the criteria for polypharmacy; 5 or more prescriptions or multi-morbidity defined as 5 or more diagnoses. Polypharmacy can significantly increase the risk of preventable adverse drug events and negatively impact adherence. Consideration of diverse factors such as clinician agreement, patient perspective, and de-prescribing, as appropriate can improve patient outcomes while simplifying care. This requires longitudinal monitoring as there is at least a moderate risk of morbidity and requires at least a moderate degree of evaluation and management. 4. Cigarette smoker Briefly mentioned how cigarette smoking can slow healing. documented in this encounter [facility] 11-17-2023 History of Presen t illness Narrative Images from the original note were not included. Patient ID: Chayito Church is a 58 y.o. female who presents for: Upper Respiratory Infection Patient complains of symptoms of a URI. Symptoms include congestion, non productive cough, shortness of breath, sinus pressure, and sore throat. Onset of symptoms was 3 days ago, or more and has been gradually worsening since that time. Treatment to date: none. Review of Systems Constitutional: Negative for chills and fever. HENT: Positive for congestion and sinus pressure. Negative for ear pain, sinus pain and sore throat. Respiratory: Positive for cough and shortness of breath. Negative for wheezing. Neurological: Negative for light-headedness and headaches. Objective In general the patient is pleasant and in no acute distress. Bilateral ears, canals are within normal limits. Right TM is transparent and somewhat retracted. Left TM is transparent and somewhat retracted. No fluid layer. Bilateral nares demonstrate inflamed mucosa. Oropharynx has moist mucosa there is no specific evidence of thrush. There is mild erythema of the pharynx. Shoddy bilateral anterior cervical adenopathy. No signs of respiratory distress. Patient is speaking full sentences. There are symmetrical breath sounds. No rhonchi or rales are appreciated. No wheezes. Skin is warm and dry Visit Vitals Pulse 106 SpO2 99% OB Status Hysterectomy Smoking Status Every Day No Known Allergies Current Outpatient Medications on File Prior to Visit Medication Sig Dispense Refill ASPIRIN 81 MG chewable tablet Chew 81 mg 3 (three) times a week. atorvastatin (Lipitor) 40 MG tablet Take 1 tablet (40 mg) by mouth at bedtime 90 tablet 1 azelastine (Astelin) 0.1 % nasal spray Administer 2 sprays into each nostril in the morning and 2 sprays before bedtime. bisacodyl (Dulcolax) 5 MG EC tablet Take 5 mg by mouth Daily as needed. diphenhydrAMINE (Benadryl Allergy) 25 MG capsule Take 25 mg by mouth every 8 (eight) hours if needed. ibuprofen 200 MG tablet Take 200 mg by mouth every 8 (eight) hours if needed. metFORMIN XR (Glucophage-XR) 750 MG 24 hr tablet Take 1 tablet (750 mg) by mouth in the morning and 1 tablet (750 mg) before bedtime. Do not crush, chew, or split.. 180 tablet 3 traZODone (Desyrel) 50 MG tablet Take 1/2 to 2 tablets at bedtime 60 tablet 0 No current facility-administered medications on file prior to visit. 1. Acute viral syndrome (Primary) We discussed and she has had what appeared to be viral exposures. I see no signs of secondary infection. Supportive therapy. 2. Acute cough Prescription for benzoate. documented in this encounter [facility] 11-08-2023 History of Presen t illness Narrative Images from the original note were not included. Patient ID: Chayito Church is a 58 y.o. 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 Breasts: Negative for breast mass and breast discharge. Respiratory: Negative for cough, shortness of breath and wheezing. Cardiovascular: Negative for chest pain, palpitations and leg swelling. Gastrointestinal: Negative for abdominal pain, constipation and diarrhea. Genitourinary: Negative for frequency and urgency. Neurological: Negative for light-headedness and headaches. Psychiatric/Behavioral: Positive for sleep disturbance. Negative for behavioral problems. The patient is not nervous/anxious. Objective The patient is pleasant and in no acute distress. The head is normocephalic and atraumatic. Both eyes appear grossly normal without obvious lid pathology or icterus. Both ears hearing is grossly intact. The neck is supple and trachea is midline. No masses are appreciated. The anterior cervical lymphatics demonstrates shoddy bilateral nontender lymphadenopathy. There is no supraclavicular lymphadenopathy. The heart is regular rate and rhythm without S3, S4. No murmur. The patient has normal respiratory pattern. The breath sounds are symmetrical without evidence of rhonchi or rales. No wheezing. The skin is warm and dry. The lower extremities have trace edema. Neurologic screening exam is nonfocal. The patient is alert. There is no overt gross evidence of cognitive impairment The patient has good eye contact and speech is clear. Appropriate affect. Visit Vitals BP 130/78 Pulse 83 Ht 5' 6 Wt 186 lb SpO2 98% BMI 30.02 kg/m OB Status Hysterectomy Smoking Status Every Day BSA 1.98 m No Known Allergies Current Outpatient Medications on File Prior to Visit Medication Sig Dispense Refill ASPIRIN 81 MG chewable tablet Chew 81 mg 3 (three) times a week. atorvastatin (Lipitor) 40 MG tablet Take 1 tablet (40 mg) by mouth at bedtime 90 tablet 1 azelastine (Astelin) 0.1 % nasal spray Administer 2 sprays into each nostril in the morning and 2 sprays before bedtime. bisacodyl (Dulcolax) 5 MG EC tablet Take 5 mg by mouth Daily as needed. diphenhydrAMINE (Benadryl Allergy) 25 MG capsule Take 25 mg by mouth every 8 (eight) hours if needed. ibuprofen 200 MG tablet Take 200 mg by mouth every 8 (eight) hours if needed. metFORMIN XR (Glucophage-XR) 750 MG 24 hr tablet Take 1 tablet (750 mg) by mouth in the morning and 1 tablet (750 mg) before bedtime. Do not crush, chew, or split.. 180 tablet 3 traZODone (Desyrel) 50 MG tablet Take 1/2 to 2 tablets at bedtime 60 tablet 0 No current facility-administered medications on file prior to visit. 1. Encounter for wellness examination in adult I have reviewed the patients PMShx, medications, and reconciled the problem list. Health maintenance and risk was reviewed and discussed. I also reviewed and discussed as appropriate; immunizations, colon cancer screening, breast and cervical cancer screening, recommended and any current lab evaluation. All items were brought up to date unless declined by the patient. 2. Advance directive discussed with patient Patient voluntarily agreed to discuss advance care planning at today's wellness visit. We discussed that an advance directive is a legal document that only goes into effect if the patient is incapacitated and unable to speak for themselves. This would help us to decide what care the patient would want. We discussed emergency treatments to keep the patient alive such as CPR, ventilator use and concept of comfort. We discussed how patients could make their wishes known through a living will, durable power of litigation attorney for healthcare, or other advanced directives. We discussed telling wise people about their advance and a copy will be kept in the EHR. I discussed that they should also make me an emergency contact in their cell phone, and/or notify their POA that I have a copy of the advanced directives. 3. Encounter for screening for malignant neoplasm of colon 4. Screening mammogram, encounter for Mammogram order 5. Screening for osteoporosis 6. History of hysterectomy Exclusionary diagnosis for the HEDIS measures for cervical cancer screening 7. Menopause 8. Left lower quadrant abdominal pain - Ambulatory referral to Urology 9. Hematuria, unspecified type - Ambulatory referral to Urology 10. Multiple kidney stones - Ambulatory referral to Urology 11. Lung nodule - CT chest wo IV contrast documented in this encounter [facility] 10-14-2023 History of Presen t illness Narrative Images from the original note were not included. Patient ID: Chayito Church is a 58 y.o. female who presents for: Abdominal Pain Patient complains of abdominal pain. The pain is described as aching, cramping, and pressure, and is moderate in intensity. The patient is experiencing LLQ pain without radiation. Onset was today ago. Symptoms have been unchanged. Review of Systems Constitutional: Negative for chills and fever. Respiratory: Negative for cough, shortness of breath and wheezing. Cardiovascular: Negative for chest pain and palpitations. Gastrointestinal: Positive for abdominal pain. Genitourinary: Negative for frequency and urgency. Somewhat anorexic and nauseated. Objective The patient is pleasant and in no acute distress The mucous membranes are moist. There is no icterus or jaundice noted. The patient has good eye contact and clear speech No CVA tenderness. The abdomen is soft and nondistended. There is no organomegaly. Some epigastric Tenderness. No specific masses are noted. No hernias were noted. There is no specific tenderness over McBurney's point. There is tenderness in both the right and the left lower quadrant with the left lower quadrant being more severe. There is some mild rebound tenderness. Visit Vitals Ht 5' 6 Wt 190 lb BMI 30.67 kg/m OB Status Hysterectomy Smoking Status Every Day BSA 2 m No Known Allergies Current Outpatient Medications on File Prior to Visit Medication Sig Dispense Refill ASPIRIN 81 MG chewable tablet Chew 81 mg 3 (three) times a week. atorvastatin (Lipitor) 40 MG tablet Take 1 tablet (40 mg) by mouth at bedtime 90 tablet 1 azelastine (Astelin) 0.1 % nasal spray Administer 2 sprays into each nostril in the morning and 2 sprays before bedtime. bisacodyl (Dulcolax) 5 MG EC tablet Take 5 mg by mouth Daily as needed. diphenhydrAMINE (Benadryl Allergy) 25 MG capsule Take 25 mg by mouth every 8 (eight) hours if needed. ibuprofen 200 MG tablet Take 200 mg by mouth every 8 (eight) hours if needed. metFORMIN XR (Glucophage-XR) 750 MG 24 hr tablet Take 1 tablet (750 mg) by mouth in the morning and 1 tablet (750 mg) before bedtime. Do not crush, chew, or split.. 180 tablet 3 traZODone (Desyrel) 50 MG tablet Take 1/2 to 2 tablets at bedtime 60 tablet 0 [DISCONTINUED] cefuroxime (Ceftin) 250 MG tablet Take 1 tablet (250 mg) by mouth in the morning and 1 tablet (250 mg) before bedtime. Do all this for 5 days. 10 tablet 0 No current facility-administered medications on file prior to visit. 1. Left lower quadrant abdominal pain I think we are dealing with an acute on chronic problem or multiple problems. Clinically it appears like diverticulitis. While she has rebound and some peritoneal signs she does not appear to have a true surgical abdomen. We also have to consider; history of kidney stones, history of a left ovarian cyst, history of recent hematuria, and history of recent E coli UTI only diagnosed by urine culture, and the Unexpected epigastric tenderness on examination. We have mutually agreed to do a trial of outpatient treatment. She understands the signs and symptoms and worsening in the need to present to an emergency room should this happen. I have asked her to use clear liquids for 24 hours and then to slowly advance her diet as tolerated. In prescribing a new medication consideration of the following encompasses moderate decision making: the current prescriptions and supplements, the current allergies and medication intolerances, the current medical conditions, and potential drug interactions. Risks, benefits, and reason for starting their medication were discussed. The patient was given a chance to ask questions today and all questions were answered. The patient is to contact us if any other questions arise or if any problems occur with the adjustment in their medication. - ciprofloxacin (Cipro) 500 MG tablet; Take 1 tablet (500 mg) by mouth in the morning and 1 tablet (500 mg) before bedtime. Do all this for 10 days. Dispense: 20 tablet; Refill: 0 - metroNIDAZOLE (Flagyl) 500 MG tablet; Take 1 tablet (500 mg) by mouth in the morning and 1 tablet (500 mg) before bedtime. Do all this for 10 days. Dispense: 20 tablet; Refill: 0 - CT abdomen pelvis w IV contrast; Future 2. Peritonitis (CMS/HCC) As noted above this is most likely multifactorial. We are going to go ahead and order a CT scan of the abdomen and the pelvis with IV contrast to try and help us elucidate this. - CT abdomen pelvis w IV contrast; Future 3. Nausea without vomiting Denies the need for antiemetics - CT abdomen pelvis w IV contrast; Future 4. Hematuria, unspecified type As noted above there many things in the differential. We did talk about urology referral. We have mutually agreed to await the results of the CT scan. - ciprofloxacin (Cipro) 500 MG tablet; Take 1 tablet (500 mg) by mouth in the morning and 1 tablet (500 mg) before bedtime. Do all this for 10 days. Dispense: 20 tablet; Refill: 0 - metroNIDAZOLE (Flagyl) 500 MG tablet; Take 1 tablet (500 mg) by mouth in the morning and 1 tablet (500 mg) before bedtime. Do all this for 10 days. Dispense: 20 tablet; Refill: 0 - CT abdomen pelvis w IV contrast; Future 5. Polypharmacy Chronic problem The patient meets the criteria for polypharmacy; 5 or more prescriptions or multi-morbidity defined as 5 or more diagnoses. Polypharmacy can significantly increase the risk of preventable adverse drug events and negatively impact adherence. Consideration of diverse factors such as clinician agreement, patient perspective, and de-prescribing, as appropriate can improve patient outcomes while simplifying care. This requires longitudinal monitoring as there is at least a moderate risk of morbidity and requires at least a moderate degree of evaluation and management. 6. Non morbid obesity due to excess calories documented in this encounter [facility] 03-09-2023 History of Presen t illness Narrative Patient ID: Chayito Church is a 58 y.o. female who presents for: Hyperlipidemia Pt who presents for follow-up of dyslipidemia. A repeat fasting lipid profile was done. The patient does not use medications that may worsen dyslipidemias (corticosteroids, progestins, anabolic steroids, diuretics, beta-blockers, amiodarone, cyclosporine, olanzapine). Exercise: only at work . Onset of symptoms has been several years. How many hours of sleep is patient getting on average night: 5-6 hours How long does it take patient to get to sleep each night: 10-15 minutes Does he/she have trouble falling asleep: no Does he/she have trouble maintaining sleep: yes Does patient have good sleep hygiene: no Sleep Apnea He/She presents for a sleep evaluation. He/She complains of tossing and turning, decreased memory, decreased concentration, decreased sexual drive. Symptoms began several years ago, stable since that time. He/She denies snoring, snorting, choking, periods of not breathing, sinus problems, congested nose, difficulty falling asleep once awakened, feels sleepy during the day, take naps during the day. Auto-pap Review of Systems Constitutional: Negative for activity change and fatigue. Respiratory: Negative for cough, shortness of breath and wheezing. Cardiovascular: Negative for chest pain, palpitations and leg swelling. Neurological: Negative for light-headedness and headaches. Objective The patient is pleasant and in no acute distress The head is normocephalic and atraumatic Although no formal testing is done, patient does not appear to have a gross neurologic deficit concerning memory and goal directed thinking during the interview. The patient has good eye contact and clear speech. Visit Vitals BP 128/78 Pulse 98 Ht 5' 6 Wt 190 lb SpO2 97% BMI 30.67 kg/m OB Status Hysterectomy Smoking Status Every Day BSA 2 m No Known Allergies Current Outpatient Medications Medication Instructions aspirin (ASPIRIN) 81 mg, Oral, 3 times weekly atorvastatin (LIPITOR) 40 mg, Oral, Nightly azelastine (Astelin) 0.1 % nasal spray 2 sprays, Each Nostril, 2 times daily bisacodyl (DULCOLAX) 5 mg, Oral, Daily PRN diphenhydrAMINE (BENADRYL ALLERGY) 25 mg, Oral, Every 8 hours PRN ibuprofen 200 mg, Oral, Every 8 hours PRN metFORMIN XR (GLUCOPHAGE-XR) 750 mg, Oral, Daily with evening meal, Do not crush, chew, or split. traZODone (Desyrel) 50 MG tablet Take 1/2 to 2 tablets at bedtime Assessment/Plan Diagnoses and all orders for this visit: Mixed hyperlipidemia ([facility]) - Lipid panel; Future - atorvastatin (Lipitor) 40 MG tablet; Take 1 tablet (40 mg) by mouth at bedtime Chronic problem, stable, tolerating her medications. In prescribing a renewal to their current medication, consideration of the following encompasses moderate decision making; the current prescriptions and supplements, the current allergies and medication intolerances, current medical conditions, and potential drug interactions. Drug interaction screening is reviewed and there are moderate to major severity ratings to consider during prescription drug management. If the adjusted medication is considered a controlled substance, then the OARRS and NARX scores are obtained and reviewed. Any changes to risks, benefits, and reason for renewing their current medication due to the above were discussed. The patient was given a chance to ask questions today and all questions were answered. The patient is to contact us, preferably by using the patient portal, or call if any other questions arise or if any problems occur with the renewal of their medication. (Utilizing the original guidelines or the 2020 new office/outpatient code guidelines for selecting the level of E/M service, In both sets of guidelines, prescription drug management appears in the moderate medical decision making (MDM) row. Neither the original guidelines nor the new guidelines state that a new prescription or change is needed in order to credit prescription drug management) Obstructive sleep apnea This patient has had the above-mentioned symptoms. They have had a sleep study that is positive for obstructive sleep apnea. One can see the attached copy of that study. After evaluation there do not appear to be any of the following contraindications to AutoPap therapy. Reduced consciousness and inability to protect their airway Unstable cardiorespiratory status Trauma or chamorro involving the face Facial, esophageal, or gastric surgery Severe air trapping diseases with hypercarbia asthma or chronic obstructive pulmonary disease (COPD) At this point the patient or their pharmacy sales representative and I have mutually agreed to the obstructive sleep apnea diagnosis and the Continued need for PAP Therapy. The patient has expressed a desire to Continue with PAP therapy. They would prefer to pursue AutoPAP. The patient will require an autoPAP device and related equiptment. This will be provided with an initial AutoPAP range from 5 to 20 cm H2O. The patient will be fitted for appliance/mask. the patient will require heated humidification. I certify that I had a [id number] encounter with this patient at todays office visit. Due to this medical condition the patient requires DME. I certify that based on my findings The DME ordered is medically necessary for this patient. This has been discussed with the patient and/or their pharmacy sales representative and mutually agreed upon. CPAP (continuous positive airway pressure) dependence Comments: AutoPap Sleep initiation disorder Chronic problem, stable, well treated with the trazodone. No prescription needed. Cigarette smoker Chronic problem that is unstable. The patient continues to use tobacco products and/or nicotine. Prior to your visit today we reviewed your chart and outlined testing and treatment as necessary for your care. Your goal is to quit using tobacco, as it significantly worsens health risks and complicates treatments. The patient was given a chance to ask questions and any questions were answered. Non morbid obesity due to excess calories Pre-diabetes - metFORMIN XR (Glucophage-XR) 750 MG 24 hr tablet; Take 1 tablet (750 mg) by mouth in the evening. Take with meals Do not crush, chew, or split. - Comprehensive metabolic panel; Future Stage 2 chronic kidney disease - Comprehensive metabolic panel; Future Polypharmacy Chronic problem Evaluating the patient's electronic health record today, we specifically note the patient has 5 or more prescriptions and/or multi-morbidity defined as 5 or more diagnoses. Treatment regimens are increasingly complex and potentially harmful, and people with polypharmacy need regular review and prescribing optimisation, with at least a moderate risk of morbidity from the medications themselves creating at least a moderate degree of evaluation and management. This was done today and reviewed with the patient. [facility] https://www.ncbi.nlm.nih.gov/pmc/artic les/VTG0996310/. 2015; 13: 74. Published online 2014May 22. https://www.ncbi.nlm.nih.gov/pubmed/25 096191 The rising tide of polypharmacy and drug-drug interactions: population database analysis [id number] https://www.ncbi.nlm.nih.gov/pmc/artic les/YCM8504944/. 5. Terrence K, Ursula SW, Nisha M, Becca G, Patricia S, Ana B. Epidemiology of multimorbidity and implications for health care, research, and medical education: a cross-sectional study. Lancet. 2012;380:37-43. documented in this encounter [facility] 01-12-2023 Evaluation note Encounter Date Diagnosis Assessment Notes Dec, Suspected COVID-19 virus infection (ICD-10 - Z20.822) Dec, Viral URI with cough (ICD-10 - J06.9) Advised patient that COVID/Influenza A/B PCR test and rapid Strep test was negative today. Advised patient that will treat as viral URI. Advised that viral illnesses may last 7 to 10 days, antibiotics are not indicated at this time. Will send in Rx of prednisone to use as directed. Encouraged supportive care as directed, increase fluids and rest, Tylenol as directed, OTC cough/cold remedies as directed on packaging, cool mist humidifier, throat lozenges. Discussed infection control practices such as good hand washing and mask wearing. Patient to follow up with PCP if symptoms persist or worsen despite treatment. Immediate eval for SOB, difficulty breathing, chest pain, fevers that do not break with antipyretic or any other concerning symptoms as reviewed on patient education handout. Patient verbalizes understanding and is agreeable to treatment plan. Patient left in stable condition Dec, Sore throat (ICD-10 - J02.9) Dec, Other may extend dr note x 1 day if needed [facility] Other 06-06-2023 Evaluation note* Encounter Date Diagnosis Assessment Notes Treatment Notes Treatment Clinical Notes Jul, Injury (ICD-10 - T14.90XA) Jul, Sprain of left ankle, unspecified ligament, initial encounter (ICD-10 - S93.402A) XR images and final report reviewed, no bony abnormalities noted, soft tissue swelling present. BELKIS wraps applied today in office. Telfa applied over burn from leash. Advised to clean area twice a day with soap and water. Encouraged RICE therapy discussed- rest extremity, avoid excessive or strenuous activity, complete activity as tolerated; ice area for 15-20 minutes at a time multiple times a day, ensure thin cloth barrier between skin and ice; BELKIS wrap area; keep extremity elevated. Advised patient to use OTC NSAIDs/Tylenol as directed as needed for discomfort. Instructed patient to follow up with PCP if sx do not improve in the next 5-7 days. Immediate eval by ER for warning s/sx as discussed. Patient verbalizes understanding and is agreeable to treatment plan Jul, Other Ankle sprain home care material was printed [facility] Other 12-10-2021 Evaluation note* Encounter Date Diagnosis Assessment Notes Treatment Notes Treatment Clinical Notes Jan, Contact with and (suspected) exposure to other viral communicable diseases (ICD-10 - Z20.828) Jan, COVID-19 (ICD-10 - U07.1) Drink plenty fluids, get plenty of rest. You must self isolate for 10 days from the onset of your symptoms. Take the prednisone as prescribed until gone. Take the Zithromax as prescribed until gone. Use the albuterol inhaler as prescribed as needed for cough or shortness of breath. Follow-up with your family physician if no improvement in 2 to 3 days. Jan, Other Additional time spent conducting pre-visit phone call, screening for symptoms, instructions on social distancing, application and removal of PPE, and cleaning of examination room, equipment and supplies was preformed. Patient education given for testing methodology and results. Patient care instructions given in writting by [facility] Care At Home document. [employer] Other Evaluation noteNo assessment information available [facility] Work Phone: Evaluation note* Diagnosis Mixed hyperlipidemia (CMS/HCC)- Primary Mixed hyperlipidemia Obstructive sleep apnea Obstructive sleep apnea (adult) (pediatric) CPAP (continuous positive airway pressure) dependence Dependence on other enabling machine Sleep initiation disorder Cigarette smoker Tobacco use disorder Non morbid obesity due to excess calories Pre-diabetes Other abnormal glucose Stage 2 chronic kidney disease Polypharmacy Issue of repeat prescriptions Right bundle branch block documented [facility] this encounter [facility]* Diagnosis Onset Date Resolution Status Contact with and (suspected) exposure to covid-19 noneactive [facility] Work Phone: Evaluation note* Diagnosis Cellulitis of right leg- Primary Abscess of right leg Polypharmacy Issue of repeat prescriptions Cigarette smoker Tobacco use disorder documented in this encounter [facility]* Diagnosis Acute viral syndrome- Primary Acute cough documented in this encounter [facility]* Diagnosis Left lower quadrant abdominal pain Peritonitis (CMS/HCC) Unspecified peritonitis Nausea without vomiting Hematuria, unspecified type Polypharmacy Issue of repeat prescriptions Non morbid obesity due to excess calories documented in [facility] encounter [facility]* Diagnosis Encounter for wellness examination in adult Advance directive discussed with patient Encounter for screening for malignant neoplasm of colon Screening mammogram, encounter for Screening for osteoporosis Special screening for osteoporosis History of hysterectomy Acquired absence of both cervix and uterus Menopause Symptomatic menopausal or female climacteric states Left lower quadrant abdominal pain Hematuria, unspecified type Multiple kidney stones Lung nodule Other diseases of lung, not elsewhere classified documented in this encounter [facility]* Diagnosis Obstructive sleep apnea- Primary Obstructive sleep apnea (adult) (pediatric) Mixed hyperlipidemia (CMS/HCC) Mixed hyperlipidemia Stage 2 chronic kidney disease Pre-diabetes Other abnormal glucose Sleep initiation disorder Cigarette smoker Tobacco use disorder Polypharmacy Issue of repeat prescriptions Non morbid obesity due to excess calories documented in this encounter [facility]* Diagnosis Vertigo- Primary Dizziness and giddiness Nystagmus Unspecified nystagmus Ataxia Lack of coordination Romberg test positive Eosinophilic granuloma of bone (CMS/HCC) Other specified disorders of metabolism documented in this encounter [facility]* Diagnosis Sensorineural hearing loss (SNHL) of both ears- Primary Tinnitus, bilateral Unspecified tinnitus Vertigo Dizziness and giddiness documented in this encounter [facility]* Diagnosis Cervicalgia- Primary BPPV (benign paroxysmal positional vertigo), left documented in this encounter [facility]* Diagnosis BPPV (benign paroxysmal positional vertigo), left- Primary Sensorineural hearing loss (SNHL), bilateral Bilateral tinnitus documented in this encounter [facility]* Diagnosis Mixed hyperlipidemia Mixed hyperlipidemia Pre-diabetes Other abnormal glucose Stage 2 chronic kidney disease Sleep initiation disorder Cigarette smoker Tobacco use disorder Polypharmacy Issue of repeat prescriptions Non morbid obesity due to excess calories documented in this encounter [facility] general Narrative - Reported* Type Description Date Medical History vertigo Surgical History tumor/granuloma of brain Surgical History partial hysterectomy Surgical History tubal ligation Surgical History wisdom teeth Surgical History D&C x5 Hospitalization History see above [facility] Other History general Narrative - Reported* Type Description Date Medical History vertigo Medical History high blood pressure Medical History diabetes mellitus Surgical History tumor/granuloma of brain Surgical History partial hysterectomy Surgical History tubal ligation Surgical History wisdom teeth Surgical History D&C x5 Hospitalization History see above [facility] Other Reason for visit Narrative* Rehabilitation - Outpatient (Routine) - Authorized Specialty Diagnoses / Procedures Referred By Dayana perera Referred To Contact Physical Therapy Diagnoses BPPV (benign paroxysmal positional vertigo), left Procedures TX OFFICE/OUTPATIENT NEW HIGH MDM 60 MINUTES Sulaiman Meyer MD [address] [facility] [address] [place] [address] Phone: tel: fax: Irene Moran, PT [address] [place] [address] Phone: tel: fax: Referral ID Status Reason Start Date Expiration Date Visits Requested Visits Authorized [id number] Authorized Consult and Treat 07/18/2024 01/14/2025 20 20 [facility] Summary Purpose Family History Relationship Condition Age at Onset Recorded Date/T margarita father Heart disease Unknown Advance Directives Advance Directive Response Recorded Date/ Time Advance Directives No July 22 8:50am Chief Complaint and Reason for Visit Chief Complaint fever, cough, conges tion Reason for Visit Contact with and (mccartney spected) exposure to covid-19 Reason for Referral Specialty Diagnoses / Procedures Referred By Dayana perera Referred To Contact Radiology Diagnoses Left lower quadrant abdominal pain Hematuria, unspecified type Nausea without vomiting Peritonitis (CMS/HCC) Procedures CT abdomen pelvis w IV contrast Kiet Robles MD [address] [place] [address] Referral ID Status Reason Start Date Expiration Date V isits Requested Visits Authorized [id number] Pending Review 10/14/2023 04/11/2024 1 1 Additional Source Comments INFORMATION SOURCE (unrecogn ized section and content) DATE CREATED AUTHOR 03/01/2021 [facility] DATE CREATED AUTHOR AUTHOR'S ORGANIZ ATION 03/18/2021 [facility] DATE CREATED AUTHOR AUTHOR'S ORGANIZ ATION 08/05/2022 [facility] DATE CREATED AUTHOR AUTHOR'S ORGANIZ ATION 08/09/2024 [facility] DATE CREATED AUTHOR AUTHOR'S ORGANIZ ATION 08/26/2024 [facility] EPIC REASON FOR VISIT (unrecogniz ed section and content) Reason Comments Hyperlipidemia Sleeping Problem Reason Comments Annual Exam Reason Comments Hyperlipidemia insulin resistance Reason Comments Vertigo Reason Comments Vertigo Audio 07/17/24 Specialty Diagnoses / Procedures Referred By Conteddie t Referred To Contact Otolaryngology Diagnoses Vertigo Chronic maxillary sinusitis Procedures TX OFFICE/OUTPATIENT NEW HIGH MDM 60 MINUTES Kiet Robles MD [address] [place] [address] Phone: tel: fax:[phone] Sulaiman Meyer MD [address] [place] [address] Phone: tel: fax: Referral ID Status Reason Start Date Expiration Date V isits Requested Visits Authorized [id number] Closed Specialty Services Required 06/07/2024 12/04/2024 1 1 Care Teams (unrecognized sec tion and content) Team Status: Inactive Member Role Status Dates Kelli Monte APRN Attending Provider Active Dental Biller Relationship Specialty Start Date End Date Kiet Robles MD [address] [place] [address] PCP - General Family Medicine 07/29/22 Team Status: Active Member Role Status Dates Kiet Robles MD Primary Care Provider Active Team Status: Inactive Member Role Status Dates Kiet Robles MD Primary Care Provider Active Start: September 13, 2023 End: September 13, 2023 Danisha Guy APRN Attending Provider Active Start: September 13, 2023 End: September 13, 2023 Dental Biller Relationship Specialty Start Date End Date Kiet Robles MD [address] [place] [address] PCP - General Family Medicine 07/29/22 Dental Biller Relationship Specialty Start Date End Date Kiet Robles MD [address] [place] [address] PCP - General Family Medicine 07/29/22 Dental Biller Relationship Specialty Start Date End Date Kiet Robles MD [address] [place] [address] PCP - General Family Medicine 07/29/22 Dental Biller Relationship Specialty Start Date End Date Kiet Robles MD [address] [place] [address] PCP - General Family Medicine 07/29/22 Dental Biller Relationship Specialty Start Date End Date Kiet Robles MD [address] [place] [place] [address] PCP - General Family Medicine 07/29/22 Dental Biller Relationship Specialty Start Date End Date Kiet Robles MD [address] [place] [place] [address] PCP - General Family Medicine 07/29/22 Dental Biller Relationship Specialty Start Date End Date Kiet Robles MD [address] [place] [address] PCP - General Family Medicine 07/29/22 Dental Biller Relationship Specialty Start Date End Date Kiet Robles MD [address] [place] [address] PCP - General Family Medicine 07/29/22 Dental Biller Relationship Specialty Start Date End Date Kiet Robles MD (Fax) PCP - General Family Medicine 07/29/22 Dental Biller Relationship Specialty Start Date End Date Kiet Robles MD (Fax) PCP - General Family Medicine 07/29/22 Dental Biller Relationship Specialty Start Date End Date Kiet Robles MD (Fax) PCP - General Family Medicine 07/29/22 Dental Biller Relationship Specialty Start Date End Date Kiet Robles MD (Fax) PCP - General Family Medicine 07/29/22 Dental Biller Relationship Specialty Start Date End Date Kiet Robles MD [address] [place] [address] (Fax) PCP - General Family Medicine 06/07/24 Dental Biller Relationship Specialty Start Date End Date Kiet Robles MD [address] [place] [address] (Fax) PCP - General Family Medicine 06/07/24 Dental Biller Relationship Specialty Start Date End Date Kiet oRbles MD [address] [place] [address] (Fax) PCP - General Family Medicine 06/07/24 Dental Biller Relationship Specialty Start Date End Date Kiet Robles MD [address] [place] [address] (Fax) PCP - General Family Medicine 06/07/24 Dental Biller Relationship Specialty Start Date End Date Kiet Robles MD [address] [place] [address] (Fax) PCP - General Family Medicine 06/07/24 Dental Biller Relationship Specialty Start Date End Date Kiet Robles MD [address] [place] [address] (Fax) PCP - General Family Medicine 06/07/24 Dental Biller Relationship Specialty Start Date End Date Kiet Robles MD [address] [address] (Fax) PCP - General Family Medicine 06/07/24 Dental Biller Relationship Specialty Start Date End Date Kiet Robles MD [address] [address] (Fax) PCP - General Family Medicine 06/07/24 Goals (unrecognized section and content) Goals may be documented in a n alternate section FOR RECORDS PERTAINING TO PATIENTS WHO ARE OR HAVE BEEN ENROLLED IN A CHEMICAL DEPENDENCY/SUBSTANCEABUSE PROGRAM, SOME INFORMATION MAY BE OMITTED. This clinical summary was aggregated from multiple sources. Caution should be exercised in using it in the provision of clinical care. This summary normalizes information from multiple sources, and as a consequence, information in this document may materially change the coding, format and clinical context of patient data. In addition, data may be omitted in some cases. CLINICAL DECISIONS SHOULD BE BASED ON THE PRIMARY CLINICAL RECORDS. [employer] provides no warranty or guarantee of the accuracy or completeness of information in this document.
--- NOTE | 2024-11-02 17:08 | ED.GENADUL1 ---
HPI HPI - General Adult General Chief complaint: Abdominal Pain Stated complaint: ABDOMINAL PAIN Time Seen by Provider: 11/02/24 16:54 Source: patient Mode of arrival: Wheelchair History of Present Illness HPI narrative: Patient is a 59-year-old female with a past medical history of hyperlipidemia and borderline diabetes on metformin that presents with complaints of severe lower abdominal pain that started early this afternoon, a few hours ago at work. Since the pain is started she has been very nauseous and has vomited twice. She states she did have a bowel movement this morning that did have some blood in it. She has no known GI issues. The only abdominal/pelvic surgery she has had is a partial hysterectomy. She denies any vaginal bleeding or discharge. Related Data Home Medications ?Medication ?Instructions ?Recorded ?Confirmed aspirin 81 mg tablet,delayed 81 mg PO .3 times a week 11/02/24 11/02/24 release (Adult Low Dose Aspirin) atorvastatin 40 mg tablet 40 mg PO QPM 11/02/24 11/02/24 metformin 750 mg tablet,extended 750 mg PO BID 11/02/24 11/02/24 release 24 hr Allergies Allergy/AdvReac Type Severity Reaction Status Date / Time No Known Drug Allergies Allergy Verified 11/02/24 15:47 Opioid HPI Opioid Management Most Recent Opioid Data: Last Pain Scale 10 Today, 17:28 Last MAR Pain Assessment Today, 17:28 Review of Systems ROS Status of ROS 10 or more systems reviewed and unremarkable except as noted in history and below PFSH PFSH Social History Little interest or pleasure in doing things: not at all Feeling down, depressed, or hopeless: not at all Exam Narrative Exam Narrative: General: No distress, age-appropriate Skin: Warm, dry, no pallor. No rash. Head: Normocephalic, atraumatic. Neck: Supple, non-tender. Eye: Pupils are equal, round and EOMI. No scleral icterus. Ears, Nose, Mouth, and Throat: No nasal mucosal hypertrophy. Oral mucosa is moist, no posterior oropharynx erythema, uvula is mid-line Cardiovascular: Regular Rate and Rhythm without murmur, gallop or rub. Respiratory: No accessory muscle use or respiratory distress. Lungs are clear to auscultation, no wheezing, rales or rhonchi Chest Wall: no tenderness Back: No midline thoracic or lumbar vertebral tenderness. Musculoskeletal: Full ROM of all extremities, no calf or popliteal tenderness GI: Abdomen is soft, non-distended, tender with palpation of the LLQ/suprapubic area. No masses appreciated. No rebound, guarding, or rigidity noted. Neurological: A&O x4. No cranial nerve dysfunction observed. No truncal ataxia. Moves all extremities. Sensation intact. Psychiatric: Cooperative and interactive. Normal mood and affect. Constitutional Vital Signs, click to edit/add: Last Vital Signs Temp 98.4 F 11/02/24 15:44 Pulse 58 L 11/02/24 20:35 Resp 16 11/02/24 20:35 BP 127/68 11/02/24 20:35 Pulse Ox 95 11/02/24 20:35 Documenting provider has reviewed patient's vital signs: yes Course Vital Signs Vital signs: Vital Signs Temperature 98.4 F 11/02/24 15:44 Pulse Rate 63 11/02/24 15:44 Respiratory Rate 20 11/02/24 15:44 Blood Pressure 154/76 H 11/02/24 15:44 Pulse Oximetry 96 11/02/24 15:44 Temperature 98.4 F 11/02/24 15:44 Pulse Rate 58 L 11/02/24 20:35 Respiratory Rate 16 11/02/24 20:35 Blood Pressure 127/68 11/02/24 20:35 Pulse Oximetry 95 11/02/24 20:35 Medical Decision Making MDM Narrative Medical decision making narrative: This is a 59-year-old female that presented with acute suprapubic/left lower quadrant abdominal pain that started a few hours prior to arrival to the emergency department. She has been nauseous and vomited twice since the pain started. She does note she had a bloody bowel movement this morning. She is unsure if she is passing flatus since the pain started. Past surgical history of partial hysterectomy. No vaginal bleeding or discharge. No prior GI issues. Differential diagnoses include diverticulitis, ischemic colitis, colorectal cancer or polyp with bleeding, infectious colitis, IBS, SBO, UTI, Nephrolithiasis Patient appears uncomfortable sitting on cart. Vital stable on arrival. Bowel sounds are hypoactive in all 4 quadrants. LLQ/ Suprapubic pain with palpation. IV placed. 4 mg Zofran given. 0.5 mg Dilaudid IV given. UA sample provided and appears brown. Patient then does note that she does have history of kidney stones. The blood she saw in the toilet/when she wiped this morning could have possibly been from her urine. CBC, BMP, Liver Function, lactate, lipase. CBC: Leukocytosis, WBC 17 BMP: wnl Lactate & Lipase: wnl UA: Lots of color interference with the gross blood, moderate bacteria, urine WBC 2?5, unable to see nitrates or leuk esterase 1L IVF started. CT Ab/ Pel with IV contrast noted a 7 mm stone mid left ureter with mild left-sided hydronephrosis. There is another 7 mm nonobstructing stone in the left renal collecting system. No small bowel obstruction. No diverticulitis. I did reevaluate patient and her pain is controlled at this time. I did discuss laboratory and CT findings. We discussed plan for urology consult and procedure tomorrow and admission and she is agreeable. I did speak with Dr. Ventura, on-call for Urology and he did review CT scans and will plan for stent or removal of the stone tomorrow. Patient to be n.p.o. at midnight. I also called and spoke with Dr. Daugherty for admission and he did accept the patient. Patient's vitals have remained stable in the emergency department. Patient's pain is controlled. She was admitted to the [facility] floor for pain control and planned Urology procedure tomorrow. Lab Data Lab results reviewed: Yes I reviewed the patient's lab results Labs: Lab Results 11/02/24 11/02/24 Range/Units 16:50 17:25 WBC 17.2 H (4.0-11.0) 10^3/uL RBC 4.96 (4.20-5.40) 10^6/uL Hgb 14.9 (12.0-16.0) g/dL Hct 43.4 (36.0-48.0) % MCV 87.5 (81.0-99.0) fL MCH 30.0 (26.7-34.0) pg MCHC 34.3 (29.9-35.2) g/dL RDW 13.1 (11.0-15.0) % Plt Count 313 (150-450) 10^3/uL MPV 10.4 (9.5-13.5) fL Neut % (Auto) 78.1 H (43.0-75.0) % Lymph % (Auto) 15.7 L (20.5-60.0) % [place] % (Auto) 4.4 (1.7-12.0) % Eos % (Auto) 1.2 (0.9-7.0) % Baso % (Auto) 0.3 (0.2-2.0) % Neut # (Auto) 13.5 H (1.4-6.5) 10^3/uL Lymph # (Auto) 2.7 (1.2-3.8) 10^3/uL [place] # (Auto) 0.8 (0.3-0.8) 10^3/uL Eos # (Auto) 0.2 (0.0-0.7) 10^3/uL Baso # (Auto) 0.1 (0.0-0.1) 10^3/uL Abs Immat Gran (auto) 0.06 H (0.00-0.03) 10^3/uL Imm/Tot Granulo (auto) 0.3 (0.0-0.5) % Sodium 143 (136-145) mmol/L Potassium 3.9 (3.5-5.1) mmol/L Chloride 103 (98-107) mmol/L Carbon Dioxide 27.0 (21.0-32.0) mmol/L Anion Gap 16.9 BUN 18.0 (7.0-18.0) mg/dL Creatinine 0.92 (0.55-1.02) mg/dL Est GFR ( Amer) >60 (>=60 mL/min/1.73m^2) Est GFR (Non-Af Amer) >60 (>=60 mL/min/1.73m^2) BUN/Creatinine Ratio 19.6 Glucose 123 H (74-106) mg/dL Lactate 1.1 (0.4-2.0) mmol/L Calcium 9.9 (8.5-10.1) mg/dL Total Bilirubin 0.3 (0.2-1.0) mg/dL Direct Bilirubin 0.1 (0.0-0.2) mg/dL AST 21 (15-37) U/L ALT 38 (14-59) U/L Alkaline Phosphatase 132 H (46-116) U/L Total Protein 8.4 H (6.4-8.2) g/dL Albumin 4.2 (3.4-5.0) g/dL Globulin 4.2 g/dL Albumin/Globulin Ratio 1.0 Lipase 36.0 (16.0-77.0) U/L Urine Color Brown A (YELLOW) Urine Clarity Cloudy A (CLEAR) Urine pH Color interference A (5.0-9.0) Ur Specific [place] >=1.030 A (1.005-1.025) Urine Protein Color interference A (NEG/TRACE) mg/dL Urine Glucose (UA) Color interference A (NEGATIVE) mg/dL Urine Ketones Color interference A (NEGATIVE) mg/dL Urine Occult Blood Color interference A (NEGATIVE) Urine Nitrite Color interference A (NEGATIVE) Urine Bilirubin Color interference A (NEGATIVE) Urine Urobilinogen Color interference A (0.2-1.0) EU/dL Ur Leukocyte Esterase Color interference A (NEGATIVE) Urine RBC >100 A (0-2) #/HPF Urine WBC 2-5 A (NONE SEEN) #/HPF Ur Squamous Epith Cells Few A (NONE/RARE) #/LPF Urine Crystals None seen (None Seen) #/HPF Urine Bacteria Moderate A (NONE SEEN) #/HPF Urine Casts None seen (NONE SEEN) #/LPF Urine Mucus None seen (NONE SEEN) Ur Culture Indicated? Yes-[facility] [place] Imaging Data CT scan - abdomen: Attestation: I have reviewed the pertinent imaging results. Radiologist's impression: ITS Impressions Abdomen/Pelvis CT 11/02/24 18:09 IMPRESSION: There is a 7 mm stone in the mid left ureter with mild left-sided hydronephrosis. There is a 7 mm nonobstructing stone in the left renal collecting system. Additional chronic findings are noted as above. Impression dictated by: Abel Euceda M.D. 11/02/2024 6:28 PM Dictation Location: [place] [address] Electronically authenticated by: [id number] Y Date: 11/02/2024 18:28 Discharge Plan Discharge Chief Complaint: Abdominal Pain Clinical Impression: Hydronephrosis concurrent with and due to calculi of kidney and ureter Patient Disposition: Admitted as Observation Time of Disposition Decision: 19:17 Condition: Good Discharge Date/Time: 11/02/24 21:21
[2024-11-02 17:21] LABS: Hematocrit 43.4 % (36.0-48.0); Hemoglobin 14.9 g/dL (12.0-16.0); Immature Granulocytes Abs Auto 0.06 10^3/uL (0.00-0.03); Immature Granulocytes Pct Auto 0.3 % (0.0-0.5); Lymphocytes Absolute Auto 2.7 10^3/uL (1.2-3.8); Mean Corpuscular HGB Conc 34.3 g/dL (29.9-35.2); Mean Corpuscular Hemoglobin 30.0 pg (26.7-34.0); Mean Corpuscular Volume 87.5 fL (81.0-99.0); Platelet Count 313 10^3/uL (150-450); Red Blood Count 4.96 10^6/uL (4.20-5.40); White Blood Count 17.2 10^3/uL (4.0-11.0)
[2024-11-02] MEDS: HYDROMORPHONE HCL 0.5 MG/0.5 ML SYRINGE IV (17:28)
[2024-11-02 17:41] LABS: Anion Gap 16.9; Blood Urea Nitrogen 18.0 mg/dL (7.0-18.0); Calcium 9.9 mg/dL (8.5-10.1); Carbon Dioxide 27.0 mmol/L (21.0-32.0); Chloride 103 mmol/L (98-107); Estimated GFR (African America >60 (>=60 mL/min/1.73m^2); Estimated GFR (Non-African Ame >60 (>=60 mL/min/1.73m^2); Glucose 123 mg/dL (74-106); Potassium 3.9 mmol/L (3.5-5.1); Sodium 143 mmol/L (136-145)
[2024-11-02 17:50] LABS: Lactate/Lactic Acid 1.1 mmol/L (0.4-2.0)
[2024-11-02] MEDS: 0.9 % SODIUM CHLORIDE 1,000 ML 1000 ML IV (17:52)
[2024-11-02 17:57] LABS: Glucose Urine UA COLOR INTERFERENCE mg/dL (NEGATIVE)
[2024-11-02 17:59] LABS: Alanine Aminotransferase 38 U/L (14-59); Albumin Globulin Ratio 1.0; Albumin Level 4.2 g/dL (3.4-5.0); Alkaline Phosphatase 132 U/L (46-116); Aspartate Amino Transferase 21 U/L (15-37); Globulin 4.2 g/dL; Lipase 36.0 U/L (16.0-77.0); Total Protein 8.4 g/dL (6.4-8.2)
--- NOTE | 2024-11-02 18:09 | CT_ITS ---
[address] [address] Patient Name: JANNY FERREIRA MRN: [id number] date: 1965 Sex: F Assigned Patient Location: ER Current Patient Location: ER Accession/Order Number: [id number] Exam Date: 11/02/2024 18:01 Report Date: 11/02/2024 18:28 At the request of: PHILLIP ELIAS Procedure: CT abdomen pelvis w con CT abdomen pelvis w con 11/02/2024 6:09 PM SIGNS AND SYMPTOMS: ^Lower abdominal/ pelvic pain \S.br\ TECHNIQUE: Multidetector ct axial images of the abdomen and pelvis were obtained with IV contrast. Multiplanar reformats were performed and reviewed to further define anatomy and possible pathology. CT was performed with one or more of the following dose reduction techniques: Automated exposure control, adjustment of the mA and/or kV according to patient size, or use of iterative reconstruction technique. COMPARISON: 11/22/2019 FINDINGS: Lower Chest: There is scarring in the left lung base. There is a 3 mm pleural-based nodule at the right lung base. ABDOMEN: Liver: Within normal limits. Bile Ducts: Normal caliber. Gallbladder: No calcified gallstones. Normal caliber wall. Pancreas: Within normal limits. Spleen: Within normal limits. Adrenals: Within normal limits. Kidneys: There is a 7 mm on the obstructing stone in the left renal collecting system. There is mild left-sided hydronephrosis. There is a simple cyst in the right renal cortex requiring no further follow-up. Pelvis: Reproductive Organs: No pelvic masses. Ureters: There is a 7 mm stone in the mid left ureter. There is enhancement and fat stranding along the proximal left ureter. Bladder: Within normal limits. Bowel: Several uncomplicated colonic diverticula are noted. There is a normal appendix in the right lower quadrant. There is no evidence of bowel obstruction. Mesenteric Lymph Nodes: No enlarged mesenteric lymph nodes. Peritoneum: No ascites or free air, no fluid collection. Vessels: Atherosclerotic changes are noted in the abdominal aorta and its branches. Retroperitoneum: Within normal limits. Abdominal Wall: Within normal limits. Bones: Degenerative changes are noted in the thoracolumbar spine. CT/CT abdomen pelvis w con IMPRESSION: There is a 7 mm stone in the mid left ureter with mild left-sided hydronephrosis. There is a 7 mm nonobstructing stone in the left renal collecting system. Additional chronic findings are noted as above. Impression dictated by: Abel Euceda M.D. 11/02/2024 6:28 PM Dictation Location: [place] [address] Electronically authenticated by: [id number] Y Date: 11/02/2024 18:28
[2024-11-02 18:12] LABS: Cast Seen? NONE SEEN #/LPF (NONE SEEN); Crystals Seen? None Seen #/HPF (None Seen); Urine Culture Indicated YES-FRMC
[2024-11-02] MEDS: ATORVASTATIN CALCIUM 40 MG TABLET PO (20:50)
[2024-11-02] MEDS: TAMSULOSIN HCL 0.4 MG CAPSULE PO (20:50)
--- OUTSIDE RECORDS SUMMARY | 2024-11-02 21:31 | XMS_ITS | CCD ---
Author Organization [facility] Care Team Providers Care Site Surveyor Name Role Phone MARGARET, DR SANTA Primary [...] Monte Attending Unavailable Kelli Monte Admitting Unavailable Minor Robles MD Primary Care Provider Minor Robles MD Primary Care Provider [phone] Minor Robles MD Primary Care Provider [phone] MINOR ROBLES Referring Unavailable MINOR ROBLES Attending Unavailable MINOR ROBLES Referring Unavailable LIVIER AMBROSIO Attending Unavailable ROSANNE MEYER Attending Unavailable MINOR ROBLES Referring Unavailable IRENE MORAN Attending Unavailable ROSANNE MEYER Referring Unavailable MINOR ROBLES Attending Unavailable MINOR ROBLES Attending Unavailable MINOR ROBLES Referring Unavailable MINOR ROBLES Attending Unavailable MINOR ROBLES Attending Unavailable MINOR ROBLES Attending Unavailable MINOR ROBLES Attending Unavailable MINOR ROBLES Attending Unavailable Medications Current Medications Medication Drug Class(es) Dates Sig (Normalized) Sig (Original) aspirin 81 mg chewable tablet (20 sources) Platelet Aggregation Inhibitor, Nonsteroidal Anti-inflammatory Drug ASPIRIN 81 MG chewable tablet Chew 81 mg 3 (three) times a week Active Baby Aspirin eliane ry other day Active atorvastatin 40 mg oral tablet (20 sources) HMG-CoA Reductase Inhibitor Start: 09-14-2022 End: 02-18-2025 take 1 tablet by mouth at bedtime atorvastatin (Lipitor) 40 MG tablet Indications: Mixed hyperlipidemia Take 1 tablet (40 mg) by mouth at bedtime 90 tablet 1 08/22/2024 02/18/2025 Active azelastine hydrochloride 0.137 mg/actuat metered dose [...] sources) Angiotensin Converting Enzyme Inhibitor Lisinopril Active 24 hr metFORMIN hydrochloride 750 mg extended [...] crush, chew, or split. 180 tablet 3 08/22/2024 08/22/2025 Active Start: 09-14-2022 End: 03-09-2023 take 1 tablet [...] tablet 0 09/14/2022 03/09/2023 Discontinued (Therapy completed) metroNIDAZOLE 500 mg oral tablet (2 sources) [...] 1 tablet by mouth once at bedtime sulfamethoxazole-t rimethoprim (Bactrim DS) 800-160 MG per tablet Indications: [...] - as directed ankle daily June, Not-Taking [id number] 200 actuat albuterol 0.09 mg/actuat metered dose [...] 12 hrs for 7 days Oct, Not-Taking azithromycin 250 mg oral tablet (3 sources) [...] 8 hours for 10 days Oct, Not-Taking naproxen sodium 550 mg oral tablet (3 sources) Nonsteroidal Anti-inflammatory Drug Start: 07-02-2018 take 1 tablet by mouth every twelve hours Anaprox DS 550 MG 1 tablet Orally Twice a day for 10 days June, Not-Taking Nirmatrelvir&Ritona vir 300/100 (Paxlovid, 300/100,) 20 x 150 MG & 10 x 100MG tablet therapy pack (2 sources) Start: 10-08-2022 End: 03-09-2023 take 3 tablets by mouth in the morning Nirmatrelvir&Riton avir 300/100 (Paxlovid, 300/100,) 20 x 150 MG [...] Acute cough Every 2 day tapering dose; 5,5,4,4,3,3,2,2,1, 1,0.5,0.5 31 tablet 11/17/2023 12/01/2023 Discontinued (Therapy completed) [...] 2 diabetes mellitus without complications] 09-13-2023 Chronic Disorders of lipid metabolism (20 sources) Mixed [...] unspecified behavior of brain] 09-13-2023 Chronic Other connective tissue disease (4 sources) Romberg's [...] vertigo, unspecified ear] Onset: 07-29-2022 07-29-2022 Episodic Diabetes mellitus without complication (20 sources) Prediabetes; Translations: [Prediabetes] Onset: 03-19-2023 03-09-2023 Episodic Nausea and vomiting (2 sources) Nausea; Translations: [Nausea] 10-14-2023 Episodic Other aftercare (20 sources) Polypharmacy ; Translations: [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] Onset: 03-19-2023 03-19-2023 Episodic Other lower respiratory disease (13 sources) Nodule of lung; Translations: [Solitary pulmonary nodule] Onset: 11-08-2023 4 Episodic Other lower respiratory disease (15 sources) Multiple nodules of lung; Translations: [Other nonspecific abnormal finding of lung field] Onset: 11-08-2023 05-15-2024 Episodic Peritonitis and intestinal abscess (2 sources) Peritonitis; Translations: [Peritonitis, unspecified] 10-14-2023 Episodic Unclassified (1 source) Suspected COVID-19 virus infection Z20.822 Results Test Name Value Interpretation Reference Range Facility COMPREHENSIVE METABOLIC PANE [facility] 08-08-2024 Albumin [Mass/Vol] 4.2 g/dL Normal 3.6-5.1 [facility] Comment on above: Performed By: #### 1 0231 #### [facility] [address] [place], [place] [id number] International Project Manager: Farida Quiñones #### 7600 #### [facility] [place] [address] International Project Manager: Nikunj Madrigal MD Albumin/Globulin [Mass ratio] 1.5 {ratio} Normal 1.0-2.5 [facility] Comment on above: Performed By: #### 1 0231 #### [facility] [address] [place], [place] [phone] International Project Manager: Farida Quiñones #### 7600 #### [facility] [place] [address] International Project Manager: Nikunj Madrigal MD ALP [Catalytic activity/Vol] 113 U/L Normal 37-153 [facility] Comment on above: Performed By: #### 1 0231 #### [facility] [address] [place] [phone] International Project Manager: Farida Quiñones #### 7600 #### [facility] [place] [address] International Project Manager: Nikunj Madrigal MD ALT [Catalytic activity/Vol] 27 U/L Normal 6-29 [facility] Comment on above: Performed By: #### 1 0231 #### [facility] [address] [place] [phone] International Project Manager: Farida Quiñones #### 7600 #### [facility] of [address], [address] [place] [address] International Project Manager: Nikunj Madrigal MD AST [Catalytic activity/Vol] 16 U/L Normal 10-35 [facility] Comment on above: Performed By: #### 1 0231 #### [facility] [address] [place], [place] [id number] International Project Manager: Farida Quiñones #### 7600 #### [facility] [address] , [address] [place] [address] International Project Manager: Nikunj Madrigal MD Bilirubin [Mass/Vol] 0.5 mg/dL Normal 0.2-1.2 [facility] Comment on above: Performed By: #### 1 0231 #### [facility] [address] International Project Manager: Farida Quiñones #### 7600 #### [facility] [address] , [address] [place] [address] International Project Manager: Niknuj Madrigal MD BUN/CREATININE RATIO SEE NOTE: Normal 6-22 [facility] Comment on above: Result Comment: Not Reported: BUN and Creatinine are within reference range. Performed By: #### 1 0231 #### [facility] [address] [place], [place] [id number] International Project Manager: Farida Quiñones #### 7600 #### [facility] of [place] [address] [place] , [address] [place] [address] International Project Manager: Nikunj Madrigal MD Calcium [Mass/Vol] 9.5 mg/dL Normal 8.6-10.4 [facility] Comment on above: Performed By: #### 1 0231 #### [facility] [address] [place], [place] [id number] International Project Manager: Farida Quiñones #### 7600 #### [facility] of [place] [address] [place] , [address] [place] [address] International Project Manager: Nikunj Madrigal MD Chloride [Moles/Vol] 107 mmol/L Normal 98-110 [facility] Comment on above: Performed By: #### 1 0231 #### [facility] [address] [place], [place] [id number] International Project Manager: Farida Quiñones #### 7600 #### [facility] [address], [address] [place] [address] International Project Manager: Nikunj Madrigal MD CO2 [Moles/Vol] 24 mmol/L Normal 20-32 [facility] Comment on above: Performed By: #### 1 0231 #### [facility] [address] [place] [address] International Project Manager: Farida Quiñones #### 7600 #### [facility] [address], [address] [place] [address] International Project Manager: Nikunj Madrigal MD Creatinine [Mass/Vol] 0.61 mg/dL Normal 0.50-1.03 [facility] Comment on above: Performed By: #### 1 0231 #### [facility] [address] International Project Manager: Farida Quiñones #### 7600 #### [facility] [address], [address] [place] [address] International Project Manager: Nikunj Madrigal MD GFR/1.73 sq M.predicted among non-blacks MDRD (S/P/Bld) [Vol rate/Area] 104 mL/min/{1.73_m2} Normal > OR = 60 [facility] Comment on above: Performed By: #### 1 0231 #### [facility] [address] [place] [address] International Project Manager: Farida Quiñones #### 7600 #### [facility] [address], [address] [place] [address] International Project Manager: Nikunj Madrigal MD Globulin (S) [Mass/Vol] 2.8 g/dL Normal 1.9-3.7 [facility] Comment on above: Performed By: #### 1 0231 #### [facility] [address] [place], [place] [id number] International Project Manager: Farida Quiñones #### 7600 #### [facility] [address], [address] [place] [address] International Project Manager: Nikunj Madrigal MD Glucose [Mass/Vol] 104 mg/dL High 65-99 [facility] Comment on above: Result Comment: Fasting reference interval For someone without known diabetes, a glucose value between 100 and 125 mg/dL is consistent with prediabetes and should be confirmed with a follow-up test. Performed By: #### 1 0231 #### [facility] International Project Manager: Farida Quiñones #### 7600 #### [facility] [address], [address] [place] [address] International Project Manager: Nikunj Madrigal MD Potassium [Moles/Vol] 4.5 mmol/L Normal 3.5-5.3 [facility] Comment on above: Performed By: #### 1 0231 #### [facility] International Project Manager: Farida Quiñones #### 7600 #### [facility] [address], [address] [place] [address] International Project Manager: Nikunj Madrigal MD Protein [Mass/Vol] 7.0 g/dL Normal 6.1-8.1 [facility] Comment on above: Performed By: #### 1 0231 #### [facility] [address] [place] [address] International Project Manager: Farida Quiñones #### 7600 #### [facility] [address], [address] [place] [address] International Project Manager: Nikunj Madrigal MD Sodium [Moles/Vol] 142 mmol/L Normal 135-146 [facility] Comment on above: Performed By: #### 1 0231 #### [facility] [address] [place] [phone] International Project Manager: Farida Quiñones #### 7600 #### [facility] [address], [address] [place], [place] [phone] International Project Manager: Nikunj Madrigal MD Urea nitrogen [Mass/Vol] 12 mg/dL Normal 7-25 [facility] Comment on above: Performed By: #### 1 0231 #### [facility] [address] [place] [phone] International Project Manager: Farida Quiñones #### 7600 #### [facility] [address], [address] [place] [address] International Project Manager: Nikunj Madrigal MD LIPID PANEL, [facility] 07-17 Cholesterol [Mass/Vol] 162 mg/dL Normal <200 [facility] Comment on above: Order Comment: FASTI NG:YES FASTING: YES Performed By: #### 1 0231 #### [facility] [address] [place] [phone] International Project Manager: Farida Quiñones #### 7600 #### [facility] [address], [address] [place] [address] International Project Manager: Nikunj Madrigal MD Cholesterol in HDL [Mass/Vol] 48 mg/dL Low > OR = 50 [facility] Comment on above: Order Comment: FASTI NG:YES FASTING: YES Performed By: #### 1 0231 #### [facility] [address] [place] [phone] International Project Manager: Farida Quiñones #### 7600 #### [facility] [address], [address] [place] [address] International Project Manager: Nikunj Madrigal MD Cholesterol in LDL [Mass/Vol] [...] LDL-C. Preston LAMB et al. CAROLYN. 2013;310(19): 2647-3236 (http://education.EMOSpeech/faq/GZC466) Performed By: #### 1 0231 #### [facility] [address] [place] [address] International Project Manager: Farida Quiñones #### 7600 #### [facility] [address], [address] [place] [address] International Project Manager: Nikunj Madrigal MD Cholesterol.total/ Cholesterol in HDL [Mass ratio] 3.4 {ratio} Normal <5.0 [facility] Comment on above: Order Comment: FASTI NG:YES FASTING: YES Performed By: #### 1 0231 #### [facility] [address] [place] [address] International Project Manager: Farida Quiñones #### 7600 #### [facility] [address], [address] [place] [address] International Project Manager: Nikunj Madrigal MD NON HDL CHOLESTEROL 114 mg/dL (calc) Normal <130 [facility] Comment on above: Order Comment: FASTI NG:YES FASTING: YES Result Comment: For patients with diabetes plus 1 major ASCVD risk factor, treating to a non-HDL-C goal of <100 mg/dL (LDL-C of <70 mg/dL) is considered a therapeutic option. Performed By: #### 1 0231 #### [facility] [address] [place], [place] [id number] International Project Manager: Farida Quiñones #### 7600 #### [facility] [address], [address] [place] [address] International Project Manager: Nikunj Madrigal MD Triglyceride [Mass/Vol] 190 mg/dL High <150 [facility] Comment on above: Order Comment: FASTI NG:YES FASTING: YES Performed By: #### 1 0231 #### [facility] [address] [place] [phone] International Project Manager: Farida Quiñones #### 7600 #### [facility] [address] [address], [address] [place] [phone] International Project Manager: Nikunj Madrigal MD Auditory function testson Right Ear: Mild to sensorineural hearing loss from 500 Hz - 2K Hz rising to normal hearing at 3K Hz. Mild sensorineural hearing loss at 4K Hz rising to normal hearing from 6K Hz - 8K Hz Left Ear: Mild to sensorineural hearing loss from 500 Hz - 2K Hz rising to normal hearing above 2K Hz. [facility] e MR BRAIN WO CONTRASTon 06-06 MR [...] report is generated using voice recognition reporting ([employer]). On occasion [employer] erroneously drops words from the report or [...] pyogenes Org specific cx Ql (Throat) Negative [facility] Other Quick Strep [facility] Other SARS-CoV-2 (COVID-19) RNA NA A+probe Ql (Resp)on 01-12-2023 SARS-CoV-2 (COVID-19) RNA ARMANDO+probe Ql (Unsp spec) Negative [facility] Other XR ankle LT min 3V*on 2022 XR ankle LT min 3V* [facility] Main [place] [address] [place] [address] XRay Report Signed Patient: Chayito Church MR#: [id number] 3 : 1965 Acct:[id number] Age/Sex: 57 / F ADM Date: 07/21/22 Loc: XDUCLY Room: Type: [facility] CLI Attending Dr: Kelli Monte APRN Copies to: [...] Pete Wetzel M.D.07/21/2022 1:36 PM Dictation Location: [facility]--12 Transcribed By: [facility] 07/21/22 1336 Dictated By: Pete Wetzel DO 07/21/22 1335 Signed By: 07/21/22 1336 Normal [facility] XR ankle LT min 3V* [facility] Other XR ankle LT min 3V* [facility] Other XR ankle LT min 3V* [address] [place] [address] [facility] Other XR ankle LT min 3V* [address] [facility] Other XR ankle LT min 3V* XRay Report [facility] Other XR ankle LT min 3V* Signed [facility] Other XR ankle LT min 3V* Patient: Chayito Church MR#: [id number] [facility] Other XR ankle LT min 3V* 3 [facility] Other XR ankle LT min 3V* : 1965 Acct:[id number] [facility] Other XR ankle LT min 3V* Age/Sex: 57 / F ADM Date: 07/21/22 [facility] Other XR ankle LT min 3V* Loc: XDUCLY Room: Type: [facility] Other XR ankle LT min 3V* Attending Dr: Kelli Monte APRN [facility] Other XR ankle LT min 3V* Copies to: Kelli Monte APRN [facility] Other XR ankle LT min 3V* Ordering Provider: Kelli Monte APRN [facility] Other XR ankle LT min 3V* Date of Service: 07/21/22 [facility] Other XR ankle LT min 3V* XR/XR ankle LT min 3V*: Injury [facility] Other XR ankle LT min 3V* 3 views left ankle plain film [facility] Other XR ankle LT min 3V* COMPARISON: None [facility] Other XR ankle LT min 3V* HISTORY: Left ankle pain. Injury. [facility] Other XR ankle LT min 3V* ACUTE FINDINGS: None [facility] Other XR ankle LT min 3V* DEGENERATIVE CHANGE: Unremarkable [facility] Other XR ankle LT min 3V* SOFT TISSUE FINDINGS: Lateral soft tissue swelling. [facility] Other XR ankle LT min 3V* JOINT EFFUSION: None [facility] Other XR ankle LT min 3V* POSTOP CHANGES: None [facility] Other XR ankle LT min 3V* BONE MINERALIZATION: Adequate [facility] Other XR ankle LT min 3V* XR/XR ankle LT min 3V* [facility] Other XR ankle LT min 3V* IMPRESSION: No acute fracture [facility] Other XR ankle LT min 3V* Impression dictated by: Pete Wetzel M.D.07/21/2022 1:36 PM [facility] Other XR ankle LT min 3V* Dictation Location: [place] [address] [facility] Other XR ankle LT min 3V* Transcribed By: PWS 07/21/22 [facility] Other XR ankle LT min 3V* Dictated By: Pete Wetzel DO 07/21/22 [employer] [facility] Other XR ankle LT min 3V* Signed By: [facility] Other XR ankle LT min 3V* 07/21/22 [facility] Other MG MAMM SCREEN 3D KG CADon 03-13-2021 MG MAMM SCREEN 3D KG CAD Patient: CHAYITO CHURCH Exam Date: 03/13/2021 : 1965 Gender:F Ordering : DR MINOR ROBLES . Admission #: [id number] Family : Order #: [id number] CLICK HERE TO VIEW EXAM RADIOLOGY REPORT [...] prostate cancer at age 82. LOCATION: [facility] BREAST COMPOSITION: Heterogeneously dense,which may obscure small [...] Kincaid MD on 03/13/2021 at 11:23 Normal [facility] XR DEXA BONE DENSITYon 03-13 XR [...] by: JULIET BROWN Date: 2021-03-13 11:24 Normal [facility] Comprehensive Metabolic Pane elieser 02-28-2021 Albumin [Mass/Vol] 4.2 g/dL Normal 3.6-5.1 [place] Comment on above: Performed By: #### C AARON LIPJanes #### [facility] [address] [place], [place] [id number] Albumin/Globulin [Mass ratio] 1.6 {ratio} Normal 1.0-2.5 [facility] Comment on above: Performed By: #### C AARON LIPD #### [facility] [address] [place], [place] [id number] ALP [Catalytic activity/Vol] 139 U/L High 35-119 [facility] Specialist Comment on above: Performed By: #### C AARON LIPD #### [facility] [address] [place], [place] [id number] ALT [Catalytic activity/Vol] 22 U/L Normal 6-33 [facility] [employer] Comment on above: Result Comment: 01/15 Female reference range changed. Performed By: #### C MP, LIPD #### [facility] [address] [place], [place] [id number] Anion gap [Moles/Vol] 18 mmol/L Normal 12-20 [facility] Comment on above: Result Comment: Effyuri ctive 02/20/2019 reference range changed. Performed By: #### C MP, LIPD #### [facility] [address] [place], [place] [id number] AST [Catalytic activity/Vol] 16 U/L Normal 9-34 [facility] Comment on above: Performed By: #### C MP, LIPD #### [facility] [address] [place], [place] [id number] BUN/CREA 20 Ratio Normal 6-22 [facility] Comment on above: Performed By: #### C MP, LIPD #### [facility] [address] [place], [place] [id number] Calcium [Mass/Vol] 9.7 mg/dL Normal 8.6-10.2 [place] Comment on above: Performed By: #### C MP, LIPD #### [facility] [address] [place], [place] [id number] Chloride [Moles/Vol] 102 mmol/L Normal 98-107 [facility] Comment on above: Performed By: #### C MP, LIPD #### [facility] [address] [place], [place] [id number] CO2 [Moles/Vol] 24 mmol/L Normal 20-31 [facility] Comment on above: Performed By: #### C MP, LIPD #### [facility] [address] [place], [place] [id number] Creatinine [Mass/Vol] 0.8 mg/dL Normal 0.6-1.4 [facility] Comment on above: Performed By: #### C MP, LIPD #### [facility] [address] [place], [place] [id number] eGFRAA 96 mL/min/1.73m2 Normal >60 [facility] Specialist Comment on above: Performed By: #### C MP, LIPD #### [facility] [address] [place], [place] [id number] eGFRNAA 79 mL/min/1.73m2 Normal >60 [facility] [employer] Comment on above: Performed By: #### C AARON, LIPD #### [facility] [address] [place], [place] [id number] Globulin (S) [Mass/Vol] 2.7 g/dL Normal 1.9-3.7 [facility] [employer] Comment on above: Performed By: #### C AARON LIPD #### [facility] [address] [place], [place] [id number] Glucose [Mass/Vol] 107 mg/dL High 65-99 [facility] [employer] Comment on above: Result Comment: For FASTING Glucose --- ADA reference ranges: Normal 65-99 mg/dl Prediabetes 100-125 Diabetes >/= 126 Performed By: #### C AARON LIPD #### [facility] [address] [place], [place] [id number] Potassium [Moles/Vol] 4.6 mmol/L Normal 3.5-5.5 [facility] [employer] Comment on above: Performed By: #### C AARON LIPD #### [facility] [address] [place], [place] [id number] Protein [Mass/Vol] 6.9 g/dL Normal 6.1-8.1 [facility] [employer] Comment on above: Performed By: #### C AARON LIPD #### [facility] [address] [place], [place] [id number] Sodium [Moles/Vol] 139 mmol/L Normal 135-146 [facility] [employer] Comment on above: Performed By: #### C AARON LIPD #### [facility] [address] [place], [place] [id number] TBIL <0.[address] [facility] [employer] Comment on above: Performed By: #### C AARON LIPD #### [facility] [address] [place], [place] [id number] Urea nitrogen [Mass/Vol] 15 mg/dL Normal 7-25 [facility] [employer] Comment on above: Performed By: #### C AARON LIPD #### [facility] [address] [place], [place] [id number] Lipid Panelon 02-28-2021 Cholesterol [Mass/Vol] 243 mg/dL High 125-200 [facility] [employer] Comment on above: Result Comment: Low risk < 200mg/dL Borderline risk 201-239 mg/dl High risk > or equal to 240 Performed By: #### C MP, LIPD #### [facility] [address] [place], [place] [id number] Cholesterol in HDL [Mass/Vol] 42 mg/dL Normal >40 [facility] [employer] Comment on above: Result Comment: High Cardiovascular Risk HDL <40 mg/dL Low Cardiovascular Risk HDL > or equal to 60 mg/dl Performed By: #### C MP, LIPD #### [facility] [address] [place], [place] [id number] Cholesterol in LDL [Mass/Vol] 162 mg/dL Normal [facility] Specialist Comment on above: Result Comment: LDL ATP III CLASSIFICATION LDL less than 100 mg/dl Optimal LDL 100-129 mg/dl Near or above optimal LDL 130-159 Borderline high LDL 160-189 High LDL greater than 189 mg/dl Very High Performed By: #### C MP, LIPD #### [facility] [address] [place], [place] [id number] Cholesterol in VLDL [Mass/Vol] 39 mg/dL Normal [facility] Specialist Comment on above: Performed By: #### C MP, LIPD #### [facility] [address] [place], [place] [id number] Cholesterol.total/ Cholesterol in HDL [Mass ratio] 6 {ratio} Normal [facility] Specialist Comment on above: Performed By: #### C MP, LIPD #### [facility] [address] [place], [place] [id number] Triglyceride [Mass/Vol] 194 mg/dL High 30-150 [facility] [employer] Comment on above: Result Comment: TRIG ATPIII CLASSIFICATIONS TRIG less than 150 mg/dl Normal TRIG 150-199 mg/dl Borderline High TRIG 200-500 mg/dl High TRIG greather than 500 mg/dl Very High Performed By: #### C MP, LIPD #### [facility] [address] [place], [place] [id number] COVID Quick Testingon 2020 Result Positive [employer] [facility] Other Quick Fluon 01-24-2021 FLUAV Ab CF (S) [Titer] Negative [facility] Other FLUBV Ab CF (S) [Titer] Negative [facility] [employer] [facility] Other ER URINE PROFILEon 1 Bilirubin Ql (U) Negative Normal NEGATIVE [facility] Comment on above: Performed By: #### E RUR #### [facility] [address] [place] [address] Dr. Aba Robison Clarity (U) CLEAR Normal CLEAR [facility] Comment on above: Performed By: #### E RUR #### [facility] [address] [place] [address] Dr. Aba Robison Color (U) LT. YELLOW Normal YELLOW [facility] Comment on above: Performed By: #### E RUR #### [facility] [address] [place] [address] Dr. Aba HERNADEZ A micrscopic examination will be performed if indicated. Normal [facility] Comment on above: Performed By: #### E RUR #### [facility] [address] [place] [address] Dr. Aba Robison Glucose Ql (U) Negative Normal NEGATIVE [facility] Comment on above: Performed By: #### E RUR #### [facility] [address] [place] [address] Dr. Aba Robison Hemoglobin Ql (U) Negative Normal NEGATIVE [facility] Comment on above: Performed By: #### E RUR #### [facility] [address] [place] [address] Dr. Aba Robison Ketones Ql (U) Negative Normal NEGATIVE [facility] Comment on above: Performed By: #### E RUR #### [facility] [address] [place] [address] Dr. Aba Robison LEUKOCYTES Negative Normal NEGATIVE [facility] Comment on above: Performed By: #### E RUR #### [facility] [address] [place] [address] Dr. Aba Robison Nitrite Ql (U) Negative Normal NEGATIVE [facility] Comment on above: Performed By: #### E RUR #### [facility] [address] [place] [address] Dr. Aba Robison pH (U) 5.5 [pH] Normal 5-9 [facility] Comment on above: Performed By: #### E RUR #### [facility] [address] [place] [address] Dr. Aba Robison SPEC GRAVITY >=1.030 Abnormal 1.005-<=1.025 [facility] Comment on above: Performed By: #### E RUR #### [facility] [address] [place] [address] Dr. Aba Robison UA PROTEIN Negative Normal NEGATIVE/ TRACE [facility] Comment on above: Performed By: #### E RUR #### [facility] [address] [place] [address] Dr. Aba Robison UR MICRO IND NOT INDICATED Normal [facility] Comment on above: Performed By: #### E RUR #### [facility] [address] [place] [address] Dr. Aba Robison Urobilinogen Qn (U) 0.2 {Orz'U}/dL Normal 0.2 - 1.0 [facility] Comment on above: Performed By: #### E RUR #### [facility] [address] [place] [address] Dr. Aba Robison Vital Signs Date Time Vital Sign Value Performing Clinician Facility 08-22-2024 09:53-0400 Body height 167.6 cm Minor Robles MD Work Phone: [facility] 08-22-2024 09:53-0400 Body mass index (BMI) [Ratio] 30.1 kg/m2 Minor Robles MD Work Phone: [facility] 08-22-2024 09:53-0400 Body weight 84.6 kg Minor Robles MD Work Phone: [facility] 08-22-2024 09:53-0400 Diastolic blood pressure 78 mm[Hg] Minor Robles MD Work Phone: [facility] 08-22-2024 09:53-0400 Heart rate 77 /min Minor Robles MD Work Phone: [facility] 08-22-2024 09:53-0400 SaO2% (BldA) [Mass fraction] 97 % Minor Robles MD Work Phone: [facility] 08-22-2024 09:53-0400 Systolic blood pressure 128 mm[Hg] Minor Robles MD Work Phone: [facility] 07-18-2024 10:51-0400 Body height 167.6 cm Rosanne Meyer MD Work Phone: [facility] 07-18-2024 10:51-0400 Body mass index (BMI) [Ratio] 30.02 kg/m2 Rosanne Meyer MD Work Phone: [facility] 07-18-2024 10:51-0400 Body weight 84.37 kg Rosanne Meyer MD Work Phone: [facility] 07-18-2024 10:51-0400 Diastolic blood pressure 65 mm[Hg] Rosanne Meyer MD Work Phone: [facility] 07-18-2024 10:51-0400 Heart rate 95 /min Rosanne Meyer MD Work Phone: [facility] 07-18-2024 10:51-0400 Systolic blood pressure 147 mm[Hg] Rosanne Meyer MD Work Phone: [facility] 05-18-2024 09:06-0400 Body height 167.6 cm Minor Robles MD Work Phone: [facility] 05-18-2024 09:06-0400 Body mass index (BMI) [Ratio] 30.02 kg/m2 Minor Robles MD Work Phone: [facility] 05-18-2024 09:06-0400 Body weight 84.37 kg Minor Robles MD Work Phone: [facility] 02-22-2024 09:57-0500 Body height 167.6 cm Minor Robles MD Work Phone: [facility] 02-22-2024 09:57-0500 Body mass index (BMI) [Ratio] 30.02 kg/m2 Minor Robles MD Work Phone: [facility] 02-22-2024 09:57-0500 Body weight 84.37 kg Minor Robles MD Work Phone: [facility] 02-22-2024 09:57-0500 Heart rate 85 /min Minor Robles MD Work Phone: [facility] 02-22-2024 09:57-0500 SaO2% (BldA) [Mass fraction] 97 % Minor Robles MD Work Phone: [facility] 12-01-2023 14:30-0400 Body height 167.6 cm Minor Robles MD Work Phone: [facility] 12-01-2023 14:30-0400 Body mass index (BMI) [Ratio] 30.02 kg/m2 Minor Robles MD Work Phone: [facility] 12-01-2023 14:30-0400 Body weight 84.37 kg Minor Robles MD Work Phone: [facility] 11-17-2023 11:38-0400 Heart rate 106 /min Minor Robles MD Work Phone: [facility] 11-17-2023 11:38-0400 SaO2% (BldA) [Mass fraction] 99 % Minor Robles MD Work Phone: [facility] 11-08-2023 09:58-0400 Body height 167.6 cm Minor Robles MD Work Phone: [facility] 11-08-2023 09:58-0400 Body mass index (BMI) [Ratio] 30.02 kg/m2 Minor oRbles MD Work Phone: [facility] 11-08-2023 09:58-0400 Body weight 84.37 kg Minor Robles MD Work Phone: [facility] 11-08-2023 09:58-0400 Diastolic blood pressure 78 mm[Hg] Minor Robles MD Work Phone: [facility] 11-08-2023 09:58-0400 Heart rate 83 /min Minor Robles MD Work Phone: [facility] 11-08-2023 09:58-0400 SaO2% (BldA) [Mass fraction] 98 % Minor Robles MD Work Phone: [facility] 11-08-2023 09:58-0400 Systolic blood pressure 130 mm[Hg] Minor Robles MD Work Phone: [facility] 10-14-2023 13:58-0400 Body height 167.6 cm Minor Robles MD Work Phone: [facility] 10-14-2023 13:58-0400 Body mass index (BMI) [Ratio] 30.67 kg/m2 Minor Robles MD Work Phone: [facility] 10-14-2023 13:58-0400 Body weight 86.18 kg Minor Robles MD Work Phone: [facility] 09-13-2023 18:36-0400 Body height 167.64 cm [facility] 09-13-2023 18:36-0400 Body mass index (BMI) [Ratio] 30.2 kg/m2 [facility] 09-13-2023 18:36-0400 Body temperature 99.4 [degF] [facility] 09-13-2023 18:36-0400 Body weight 84.82 kg [facility] 09-13-2023 18:36-0400 Diastolic blood pressure 82 mm[Hg] [facility] 09-13-2023 18:36-0400 Heart rate 97 /min [facility] 09-13-2023 18:36-0400 Respiratory rate 18 /min [facility] 09-13-2023 18:36-0400 SaO2% (BldA) [Mass fraction] 97 % [facility] 09-13-2023 18:36-0400 Systolic blood pressure 136 mm[Hg] [facility] 03-09-2023 09:50-0500 Body height 167.6 cm Minor Robles MD Work Phone: [facility] 03-09-2023 09:50-0500 Body mass index (BMI) [Ratio] 30.67 kg/m2 Minor Robles MD Work Phone: [facility] 03-09-2023 09:50-0500 Body weight 86.18 kg Minor Robles MD Work Phone: [facility] 03-09-2023 09:50-0500 Diastolic blood pressure 78 mm[Hg] Minor Robles MD Work Phone: [facility] 03-09-2023 09:50-0500 Heart rate 98 /min Minor Robles MD Work Phone: [facility] 03-09-2023 09:50-0500 SaO2% (BldA) [Mass fraction] 97 % Minor Robles MD Work Phone: [facility] 03-09-2023 09:50-0500 Systolic blood pressure 128 mm[Hg] Minor Robles MD Work Phone: [facility] 01-12-2023 17:50-0500 Body height 167.64 cm Kelli Monte Other [facility] Other 01-12-2023 17:50-0500 Body mass index (BMI) [Ratio] 30.99 kg/m2 Kelli Monte Other [facility] Other 01-12-2023 17:50-0500 Body temperature 98.1 [degF] Kelli Monte Other [facility] Other 01-12-2023 17:50-0500 Body weight 87.09 kg Kelli Monte Other [facility] Other 01-12-2023 17:50-0500 Respiratory rate 18 /min Kelli Monte Other [facility] Other 01-12-2023 17:50-0500 SaO2% (BldA) [Mass fraction] 95 % Kelli Monte Other [facility] Other 07-21-2022 13:05-0400 Body height 167.64 cm Kelli Monte Other [facility] Other 07-21-2022 13:05-0400 Body mass index (BMI) [Ratio] 31.95 kg/m2 Kelli Monte Other [facility] Other 07-21-2022 13:05-0400 Body temperature 98.3 [degF] Kelli Monte Other [facility] Other 07-21-2022 13:05-0400 Body weight 89.81 kg Kelli Monte Other [facility] Other 07-21-2022 13:05-0400 Diastolic blood pressure 82 mm[Hg] Kelli Monte Other [facility] Other 07-21-2022 13:05-0400 Respiratory rate 18 /min Kelli Monte Other [facility] Other 07-21-2022 13:05-0400 SaO2% (BldA) [Mass fraction] 96 % Kelli Monte Other [facility] Other 07-21-2022 13:05-0400 Systolic blood pressure 145 mm[Hg] Kelli Monte Other [facility] Other 01-24-2021 15:45-0500 Body height 167.64 cm Mary Bowens Other [facility] Other 01-24-2021 15:45-0500 Body temperature 101 [degF] Mary Bowens Other [facility] Other 01-24-2021 15:45-0500 Respiratory rate 18 /min Mary Bowens Other [facility] Other 01-24-2021 15:45-0500 SaO2% (BldA) [Mass fraction] 95 % Mary Bowens Other [facility] Other Encounters Encounter Date Encounter Type Care Provider Facility Start: 11-02-2024 End: 11-02-2024 Clinisync Result Encounter Generic External Data Provider [facility] Unsolicited Start: 11-02-2024 End: 11-02-2024 Clinisync Result Encounter Generic External Data Provider [facility] External [facility] Unsolicited Start: 08-22-2024 End: 08-22-2024 Bamboo flowsheet Minor Robles MD Work Phone: [facility] Start: 08-22-2024 End: 08-22-2024 Bamboo flowsheet Minor Robles MD Work Phone: [facility] Start: 08-22-2024 End: 08-22-2024 Office outpatient visit 25 minutes Minor Robles MD Work Phone: [facility] Comment on above: Mixed hyperlipidemia ; Pre-diabetes; Stage 2 chronic kidney disease; Sleep initiation disorder; Cigarette smoker; Polypharmacy; Non morbid obesity due to excess calories Start: 08-22-2024 End: 08-22-2024 ambulatory MINOR ROBLES Not Available Start: 08-01-2024 End: 08-01-2024 Telephone encounter Irene Michele Luisa PT Work Phone: [facility] Start: 07-31-2024 End: 07-31-2024 Bamboo flowsheet Irene Bautista Luisa PT Work Phone: [facility] Start: 07-31-2024 End: 07-31-2024 Bamboo flowsheet Irene Bautista Luisa PT Work Phone: [facility] Start: 07-31-2024 End: 07-31-2024 ambulatory Irene Bautista Luisa PT Work Phone: [facility] Comment on above: Cervicalgia (Primary Dx); BPPV (benign paroxysmal positional vertigo), left Start: 07-18-2024 End: 07-18-2024 Bamboo flowsheet Rosanen Meyer MD Work Phone: [facility] Start: 07-18-2024 End: 07-18-2024 Bamboo flowsheet Rosanne Meyer MD Work Phone: [facility] Start: 07-18-2024 End: 07-18-2024 ambulatory ROSANNE MEYER Not Available Start: 07-18-2024 End: 07-18-2024 Office outpatient new 45 minutes Rosanne Meyer MD Work Phone: [facility] [...] bilateral; Vertigo Start: 06-06-2024 End: 06-06-2024 ambulatory MINOR ROBLES Not Available Start: 05-18-2024 End: 05-18-2024 Bamboo denise Robles MD Work Phone: [facility] Start: 05-18-2024 End: 05-18-2024 Bamboo flowsnoelle Robles MD Work Phone: [facility] Start: 05-18-2024 End: 05-18-2024 Office outpatient visit 25 minutes Minor Robles MD Work Phone: [facility] Comment on above: Vertigo (Primary Dx) ; Nystagmus; Ataxia; Romberg test positive; Eosinophilic granuloma of bone (CMS/HCC) Start: 05-18-2024 End: 05-18-2024 ambulatory MINOR ROBLES Not Available Start: 05-11-2024 End: 05-11-2024 ambulatory MINOR ROBLES Not Available Start: 02-22-2024 End: 02-22-2024 Bamboo flowsnoelle Robles MD Work Phone: [facility] Start: 02-22-2024 End: 02-22-2024 Erickboo denise Robles MD Work Phone: [facility] Start: 02-22-2024 End: 02-22-2024 Office outpatient visit 25 minutes Minor Robles MD Work Phone: [facility] Comment on above: Obstructive sleep ap derek (Primary Dx); Mixed hyperlipidemia (CMS/HCC); Stage 2 chronic kidney disease; Pre-diabetes; Sleep initiation disorder; Cigarette smoker; Polypharmacy; Non morbid obesity due to excess calories Start: 02-22-2024 End: 02-22-2024 ambulatory MINOR ROBLES Not Available Start: 12-01-2023 End: 12-01-2023 Office outpatient visit 25 minutes Minor Robles MD Work Phone: [facility] Comment on above: Cellulitis of right leg (Primary Dx); Abscess of right leg; Polypharmacy; Cigarette smoker Start: 12-01-2023 End: 12-01-2023 ambulatory MINOR ROBLES Not Available Start: 12-01-2023 End: 12-01-2023 Bamboo flowsheet Minor Robles MD Work Phone: [facility] Start: 12-01-2023 End: 12-01-2023 Bamboo flowsheet Minor Robles MD Work Phone: [facility] Start: 11-17-2023 End: 11-17-2023 Bamboo flowsheet Minor Robles MD Work Phone: [facility] Start: 11-17-2023 End: 11-17-2023 Bamboo flowsheet Minor Robles MD Work Phone: [facility] Start: 11-17-2023 End: 11-17-2023 Office outpatient visit 15 minutes Minor Robles MD Work Phone: [facility] Comment on above: Acute viral syndrome (Primary Dx); Acute cough Start: 11-17-2023 End: 11-17-2023 ambulatory MINOR ROBLES Not Available Start: 11-08-2023 End: 11-08-2023 Bamboo flowsheet Minor Robles MD Work Phone: [facility] Start: 11-08-2023 End: 11-08-2023 Bamboo flowsheet Minor Robles MD Work Phone: [facility] Start: 11-08-2023 End: 11-08-2023 Patient encounter status Minor Robles MD Work Phone: [facility] Start: 11-08-2023 End: 11-08-2023 Periodic preventive med est patient 40-64yrs Minor Robles MD Work Phone: [facility] Comment on above: Encounter for wellne ss examination in adult; Advance directive discussed with patient; Encounter for screening for malignant neoplasm of colon; Screening mammogram, encounter for; Screening for osteoporosis; History of hysterectomy; Menopause; Left lower quadrant abdominal pain; Hematuria, unspecified type; Multiple kidney stones; Lung nodule Start: 11-08-2023 End: 11-08-2023 ambulatory MINOR ROBLES Not Available Start: 10-21-2023 End: 10-21-2023 ambulatory MINOR ROBLES Not Available Start: 10-14-2023 End: 10-14-2023 Bamboo flowsheet Minor Robles MD Work Phone: [facility] Start: 10-14-2023 End: 10-14-2023 Bamboo flowsheet Minor oRbles MD Work Phone: [facility] Start: 10-14-2023 End: 10-14-2023 Office outpatient visit 25 minutes Minor Robles MD Work Phone: [facility] Comment on above: Left lower quadrant abdominal pain; Peritonitis (CMS/HCC); Nausea without vomiting; Hematuria, unspecified type; Polypharmacy; Non morbid obesity due to excess calories Start: 10-14-2023 End: 10-14-2023 ambulatory MINOR ROBLES Not Available Start: 09-16-2023 End: 09-16-2023 ambulatory MINOR ROBLES Not Available Start: 09-13-2023 End: 09-13-2023 ambulatory [facility] ed [place] Work Phone: Start: 09-13-2023 End: 09-13-2023 Patient encounter procedure [facility] [place] Work Phone: Start: 03-09-2023 End: 03-09-2023 Office outpatient visit 25 minutes Minor Robles MD Work Phone: [facility] Comment on above: Mixed hyperlipidemia (CMS/HCC) (Primary Dx); Obstructive sleep apnea; CPAP (continuous positive airway pressure) dependence; Sleep initiation disorder; Cigarette smoker; Non morbid obesity due to excess calories; Pre-diabetes; Stage 2 chronic kidney disease; Polypharmacy; Right bundle branch block Start: 01-12-2023 End: 01-12-2023 ambulatory Kelli Monte Other [facility] Other Start: 01-12-2023 Office outpatient vi sit 25 minutes Kelli Monte [facility] [place] Start: 07-21-2022 Office outpatient vi sit 15 minutes Kelli Monte [facility] [place] Start: 07-21-2022 End: 07-21-2022 ambulatory Kelli Monte [facility] Work Phone: Start: 07-21-2022 End: 07-21-2022 Patient encounter procedure [place] [facility] Kelli Monte Work Phone: [facility] [place] Work Phone: Start: 03-13-2021 End: 03-14-[address] MINOR ROBLES Facility:[facility] Start: 01-29-2021 End: 01-29-[address] MINOR ROLBES Facility:[facility] Start: 01-24-2021 End: 01-24-2021 ambulatory Mary Bowens Other [facility] Other Start: 01-24-2021 Office outpatient vi sit 15 minutes Mary Bowens [facility] [place] Start: 01-19-2021 End: 01-19-[address] MINOR ROBLES Facility:[facility] Procedures Date Procedure Procedure Detail Performing Clinician Start: 11-02-2024 [facility] Generic External Da ta Provider Start: 07-17-2024 AUDITORY FUNCTION TESTS Livier Ambrosio [facility] Work Phone: Start: 11-26-2023 Mammography Minor Robles MD Work Phone: Start: 07-29-2022 H/O: hysterectomy History of hysterectomy Minor Marrero Work Phone: Start: 07-21-2022 X-ray of left ankle [facility] CHOPPER Kelli Monte Work Phone: Start: 03-13-2021 Mammography Minor Robles MD Work Phone: H/O: hysterectomy History of hysterectomy Minor Robles MD Work Phone: Plan of Treatment Date Care Activity Detail Author Start: 02-19-2025 End: 02-19-2025 Patient encounter procedure [facility] Start: 11-25-2024 Screening for malign ant neoplasm of breast Mammogram [facility] Start: 10-16-2024 Influenza vaccination [facility] Start: 08-22-2024 End: 08-22-2024 Patient encounter procedure [facility] Comment on above: Mixed hyperlipidemia ; Pre-diabetes; Stage 2 chronic kidney disease; Sleep initiation disorder; Cigarette smoker; Polypharmacy; Non morbid obesity due to excess calories Start: 07-31-2024 End: 07-31-2024 ambulatory 07/31/2024 12:00 PM EDT Evaluation [facility] [address] [place] [address] Irene Moran, PT [address] [place] [id number] Cervicalgia (Primary Dx); BPPV (benign paroxysmal positional vertigo), left [facility] Comment on above: Cervicalgia (Primary Dx); BPPV (benign paroxysmal positional vertigo), left Start: 07-22-2024 End: 02-21-2025 Comprehensive metabolic 2000 panel - Serum or Plasma Comprehensive metabolic panel Lab Routine Stage 2 chronic kidney disease Pre-diabetes Expected: 07/22/2024, Expires: 02/21/2025 [facility] Work Phone: Comment on above: Expected: 07/22/2024 , Expires: 02/21/2025 Start: 07-22-2024 End: 02-21-2025 Lipid 1996 panel - Serum or Plasma Lipid panel Lab Routine Mixed hyperlipidemia (CMS/HCC) Expected: 07/22/2024, Expires: 02/21/2025 [facility] Comment on above: Expected: 07/22/2024 , Expires: 02/21/2025 Start: 07-18-2024 End: 07-18-2024 Patient encounter procedure 07/18/2024 10:50 AM EDT Office Visit [facility] [address] [facility] [address] [place] [phone] Rosanne Meyer MD [address] [place] [address] [place] [address] [facility] Start: 07-17-2024 End: 07-17-2024 Clinical Support 07/17/2024 10:15 AM EDT Clinical Support [facility] [address] [facility] [address] [place] [phone] Livier Ambrosio, [facility] [address] [place] [address] Arrived [facility] Comment on above: [...] [facility] [address] [facility] [address] [place] [address] Minor Robles MD [address] [facility] [place] [address] Arrived [facility] Comment on above: Arrived Start: 11-17-2023 End: 11-17-2023 Patient encounter procedure 11/17/2023 11:45 AM EDT Office Visit [facility] [address] [facility] [address] [place] [address] Minor Robles MD [address] [place] [address] Arrived [facility] Comment on above: Arrived Start: 11-08-2023 End: 01-07-2025 MG Breast - bilateral Screening Bilateral screening mammogram Imaging Routine Screening mammogram, encounter for Expected: 11/08/2023, Expires: 01/07/2025 [facility] Work Phone: Comment on above: Expected: 11/08/2023 , Expires: 01/07/2025 Start: 11-08-2023 End: 11-08-2023 Patient encounter procedure 11/08/2023 10:00 AM EDT Office Visit [facility] [address] [address] Minor Robles MD [address] [place] [address] Encounter for wellness examination in adult; Advance [...] Visit [facility] [address] [place] [address] [place] [address] Minor Robles MD [address] [place] [address] [facility] Start: 10-17-2023 Influenza vaccination Influenza Vacc ine (#1) [facility] Start: 10-14-2023 End: 10-13-2024 CT Abdomen and Pelvis W contrast IV CT abdomen pelvis w IV contrast Imaging Routine Left lower quadrant abdominal pain Hematuria, unspecified type Nausea without vomiting Peritonitis (CMS/HCC) Expected: 10/14/2023, Expires: 10/13/2024 [facility] Work Phone: Comment on above: Expected: 10/14/2023 , Expires: 10/13/2024 Start: 10-14-2023 End: 10-14-2023 Patient encounter procedure 10/14/2023 2:00 PM EDT Office Visit [facility] [address] [address] Minor Robles MD [address] [place] [address] (Fax) Arrived [facility] Comment on above: Arrived Start: 08-30-2023 End: 08-30-2023 Patient encounter procedure 08/30/2023 10:00 AM EDT Office Visit [facility] [address] [place] [address] Minor Robles MD [address] [place] [address] (Fax) [facility] Start: 08-08-2023 End: [...] Mixed hyperlipidemia (CMS/HCC) Expected: 08/08/2023, Expires: 03/09/2024 [facility] Comment on above: Expected: 08/08/2023 , Expires: 03/09/2024 Start: 10-16-2022 Influenza vaccination Influenza Vacc ine (#1) [facility] Start: 03-13-2022 Screening for malign ant neoplasm of breast Mammogram [facility] Start: 1965 Screening for malign ant neoplasm of colon [facility] [place] [facility] [place] [facility] [place] [facility] [place] Routine 11/02/2024 5:25 PM EDT [facility] Immunizations Immunization Date Immunization Notes Care Provider [facility] 12-26-2019 influenza, injectabl e, quadrivalent, preservative free Minor Robles MD Work Phone: [facility] 12-26-2019 influenza virus vacc ine, unspecified formulation Minor Robles MD Work Phone: [facility] 12-01-2018 influenza, injectabl e, quadrivalent, preservative free Minor Robles MD Work Phone: [facility] 11-21-2018 influenza, seasonal, injectable Minor Robles MD Work Phone: [facility] 11-22-2017 influenza, injectabl e, quadrivalent, preservative free Minor Robles MD Work Phone: [facility] Payers Date Payer Category Payer Private Health Insurance [id number] 2022 Private Health Insurance [id number] 2022 Self-pay [id number] 1965 Unknown [id number] 1967 Unknown [id number] 1967 Unknown [id number] 2.16.84 0.1.231229.3.579.2.593 1965 Unknown [id number] 2.16.8 40.1.363271.3.579.2.9 1965 Unknown [id number] 2.16.8 40.1.209455.3.579.2.1258 1965 Unknown [id number] 2.16.8 40.1.802957.3.579.2.1258 1965 Unknown [id number] 2.16.84 0.1.905390.3.579.2.9 1965 Unknown [id number] 2.16.84 0.1.424068.3.579.2.1258 1965 Unknown [id number] 2.16.84 0.1.105534.3.579.2.1258 1965 Unknown [id number] 2.16.84 0.1.210901.3.579.2.1258 1965 Unknown [id number] 2.16.84 0.1.536673.3.579.2.9 1965 Unknown [id number] 2.16.84 0.1.319668.3.579.2.1258 1965 Unknown [id number] 2.16.84 0.1.111890.3.579.2.1258 1965 Unknown [id number] 2.16.84 0.1.839939.3.579.2.1258 1965 Unknown [id number] 2.16.84 0.1.681359.3.579.2.1258 1965 Unknown [id number] 2.16.84 0.1.939841.3.579.2.1258 1965 Unknown [id number] 2.16.84 0.1.749911.3.579.2.1259 1957 Private Health Insurance [id number] Unknown [id number] 2.16.8 40.1.351502.3.579.2.531 Social History Date Type Detail Facility Unknown if ever smoked [facility] Other Start: 09-13-2022 End: 09-16-2023 Sex Assigned At [facility] Start: 1965 Sex Assigned At Female F [facility] Start: 07-30-2022 End: 08-23-2023 Tobacco smoking status NHIS Smokes tobacco daily [facility] History of [...] [OSQ] Very much [facility] (I/We) worried wheth er (my/our) food would run out before (I/we) got money to buy more. Never true [facility] Start: 1965 Sex Assigned At Not on file [facility] Start: 09-13-2023 Tobacco smoking stat us [facility] Smoker (finding) [facility] Start: 11-08-2023 End: 08-22-2024 Alcoholic beverage intake Ex-drinker (finding) [facility] Do you feel stress - tense, restless, nervous, or anxious, or unable to sleep at night because your mind is troubled all the time - these days [OSQ] To some extent [facility] Clinical Notes 01-24-2021 to 08-22-2024 Minor Robles MD - 08/22/2024 10:00 AM Renato Moran, PT - 08/01/2024 9:31 AM Benji Meyer MD - 07/18/2024 10:50 AM Rakesh Ambrosio, [facility] - 07/17/2024 10:15 AM EDT Note Date [...] recent labs or diagnostic imaging with Dr Lang Robles per his request. Based on the [...] encouraged lifestyle changes documented in this encounter [facility] 08-01-2024 History of Presen t illness Narrative [...] at this time. documented in this encounter [facility] 07-18-2024 History of Presen t illness Narrative Subjective Patient ID: Chayito Church is a 59 y.o. female who presents for Vertigo (Audio 07/17/24) Pt reports a 3-4 year h/o intermittent vertigo. Primarily occurs when she lays down and rolls to the left. Also c/o kg tinnitus. Audio shows symmetric moderate gk SNHL. MRI obtained that shows no otologic [...] X 4 PARTIAL HYSTERECTOMY 02/2014 TUMOR EXCISION 1995 brain No Known Allergies Current Outpatient Medications [...] and well-groomed, Constitutional comments: Strongly positive LEFT [place]. Head and Face Appearance: head appears normal [...] at some point documented in this encounter [facility] 07-17-2024 History of Presen t illness Narrative [...] Type A tympanogram documented in this encounter [facility] 05-18-2024 History of Presen t illness Narrative [...] palpable here today. documented in this encounter [facility] 02-22-2024 History of Presen t illness Narrative [...] file prior to visit. 1. Mixed hyperlipidemia ([facility]) In prescribing a renewal to their current [...] if any problems occur. (Utilizing the original guidelines or the 2020 office/outpatient code guidelines [...] auto PAP nightly. documented in this encounter [facility] 12-01-2023 History of Presen t illness Narrative [...] it to break on her own ) May was in the room as information assistant and wood heel flap inserter. With the patient in the frog-leg position, [...] can slow healing. documented in this encounter [facility] 11-17-2023 History of Presen t illness Narrative [...] Prescription for benzoate. documented in this encounter [facility] 11-08-2023 History of Presen t illness Narrative Images from the original note were not included. Patient ID: Chayito Church is a 58 y.o. female who presents for: See Scanned Wellness packet Advance Directive/Living Will: No Health Care Power of I&C Tech: No Review of Systems Constitutional: Negative for [...] through a living will, durable power of divorce attorney for healthcare, or other advanced directives. [...] History of hysterectomy [facility] measures for cervical cancer screening 7. Menopause 8. Left lower quadrant abdominal pain - Ambulatory referral to Urology 9. Hematuria, unspecified type - Ambulatory referral to Urology 10. Multiple kidney stones - Ambulatory referral to Urology 11. Lung nodule - CT chest wo IV contrast documented in this encounter [facility] 10-14-2023 History of Presen t illness Narrative [...] to excess calories documented in this encounter [facility] 03-09-2023 History of Presen t illness Narrative [...] all orders for this visit: Mixed hyperlipidemia (CMS/HCC) - Lipid panel; Future - atorvastatin (Lipitor) [...] renewal of their medication. (Utilizing the original 1994/1996 guidelines or the 2020 new office/outpatient code [...] At this point the patient or their business representative and I have mutually agreed to [...] humidification. I certify that I had a gtej-ns-ysgl encounter with this patient at todays office visit. Due to this medical condition the patient requires DME. I certify that based on my findings The DME ordered is medically necessary for this patient. This has been discussed with the patient and/or their business representative and mutually agreed upon. CPAP (continuous [...] reviewed with the patient. [facility] https://www.ncbi.nlm.nih.gov/pmc/artic les/DFB5003661/. 2015; 13: 74. Published online 2014May 22. https://www.ncbi.nlm.nih.gov/pubmed/25 086587 The rising tide of polypharmacy and drug-drug interactions: population database analysis 7604-7973 https://www.ncbi.nlm.nih.gov/pmc/artic les/ISR2468547/. 5. Terrence K, Ursula SW, Nisha M, Becca G, Patricia S, Ana B. Epidemiology of multimorbidity and implications for health care, research, and medical education: a cross-sectional study. Lancet. 2012;380:37-43. documented in this encounter [facility] 01-12-2023 Evaluation note Encounter Date Diagnosis Assessment [...] dr note x 1 day if needed [facility] Other 06-06-2023 Evaluation note* Encounter Date Diagnosis [...] Ankle sprain home care material was printed [facility] Other 12-10-2021 Evaluation note* Encounter Date Diagnosis [...] Patient care instructions given in writting by [facility] document. [facility] Other Evkexation noteNo assessment information available [facility] Work Phone: Evjpgation note* Diagnosis Mixed hyperlipidemia (CMS/HCC)- Primary Mixed [...] bundle branch block documented in this encounter [facility] HealthcareEvaluation note* Diagnosis Onset Date Resolution Status Contact with and (suspected) exposure to covid-[address] [facility] Work Phone: Evaluation note* Diagnosis Cellulitis of right leg- Primary Abscess of right leg Polypharmacy Issue of repeat prescriptions Cigarette smoker Tobacco use disorder documented in this encounter [facility] HealthcareEvaluation note* Diagnosis Acute viral syndrome- Primary Acute cough documented in this encounter [facility] HealthcareEvaluation note* Diagnosis Left lower quadrant abdominal pain Peritonitis (CMS/HCC) Unspecified peritonitis Nausea without vomiting Hematuria, unspecified type Polypharmacy Issue of repeat prescriptions Non morbid obesity due to excess calories documented in this encounter [facility] HealthcareEvaluation note* Diagnosis Encounter for wellness examination [...] not elsewhere classified documented in this encounter [facility] HealthcareEvaluation note* Diagnosis Obstructive sleep apnea- Primary Obstructive sleep apnea (adult) (pediatric) Mixed hyperlipidemia (CMS/HCC) Mixed hyperlipidemia Stage 2 chronic kidney disease Pre-diabetes Other abnormal glucose Sleep initiation disorder Cigarette smoker Tobacco use disorder Polypharmacy Issue of repeat prescriptions Non morbid obesity due to excess calories documented in this encounter [facility] HealthcareEvaluation note* Diagnosis Vertigo- Primary Dizziness and giddiness Nystagmus Unspecified nystagmus Ataxia Lack of coordination Romberg test positive Eosinophilic granuloma of bone (CMS/HCC) Other specified disorders of metabolism documented in this encounter [facility] HealthcareEvaluation note* Diagnosis Sensorineural hearing loss (SNHL) of both ears- Primary Tinnitus, bilateral Unspecified tinnitus Vertigo Dizziness and giddiness documented in this encounter [facility] HealthcareEvaluation note* Diagnosis Cervicalgia- Primary BPPV (benign paroxysmal positional vertigo), left documented in this encounter [facility] HealthcareEvaluation note* Diagnosis BPPV (benign paroxysmal positional vertigo), left- Primary Sensorineural hearing loss (SNHL), bilateral Bilateral tinnitus documented in this encounter [facility] HealthcareEvaluation note* Diagnosis Mixed hyperlipidemia Mixed hyperlipidemia Pre-diabetes Other abnormal glucose Stage 2 chronic kidney disease Sleep initiation disorder Cigarette smoker Tobacco use disorder Polypharmacy Issue of repeat prescriptions Non morbid obesity due to excess calories [facility] N[facility] - Reported* Type Description Date Medical History vertigo Surgical History tumor/granuloma of brain Surgical History partial hysterectomy Surgical History tubal ligation Surgical History wisdom teeth Surgical History D&C x5 Hospitalization History see above [facility] Other History general Narrative - Reported* Type Description Date Medical History vertigo Medical History high blood pressure Medical History diabetes mellitus Surgical History tumor/granuloma of brain Surgical History partial hysterectomy Surgical History tubal ligation Surgical History wisdom teeth Surgical History D&C x5 Hospitalization History see above [facility] Other Reason for visit Narrative* Rehabilitation - Outpatient (Routine) - Authorized Specialty Diagnoses / Procedures Referred By Contac t Referred To Contact Physical Therapy Diagnoses BPPV (benign paroxysmal positional vertigo), left Procedures ID OFFICE/OUTPATIENT NEW HIGH MDM 60 MINUTES Rosanne Meyer MD [address] [facility] [address] [place] [address] Phone: tel: fax: Irene Moran, PT [address] [place] [address] Phone: tel: fax: Referral ID Status Reason Start Date Expiration Date Visits Requested Visits Authorized [id number] Authorized Consult and Treat 07/18/2024 01/14/2025 20 [...] Referral Specialty Diagnoses / Procedures Referred By Contac t Referred To Contact Radiology Diagnoses Left lower quadrant abdominal pain Hematuria, unspecified type Nausea without vomiting Peritonitis (CMS/HCC) Procedures CT abdomen pelvis w IV contrast Minor Robles MD [address] [facility] [place] [address] Referral ID Status Reason Start Date Expiration Date V isits Requested Visits Authorized [id number] Pending Review 10/14/2023 04/11/2024 1 1 Additional Source Comments INFORMATION SOURCE (unrecogn ized section and content) DATE CREATED AUTHOR 03/01/2021 [facility] DATE CREATED AUTHOR AUTHOR'S ORGANIZ ATION 03/18/2021 [facility] DATE CREATED AUTHOR AUTHOR'S ORGANIZ ATION 08/05/2022 [facility] DATE CREATED AUTHOR AUTHOR'S ORGANIZ ATION 08/09/2024 [facility] DATE CREATED AUTHOR AUTHOR'S ORGANIZ ATION 08/26/2024 [facility] EPIC REASON FOR VISIT (unrecogniz ed section and content) Reason Comments Hyperlipidemia Sleeping Problem Reason Comments Annual Exam Reason Comments Hyperlipidemia insulin resistance Reason Comments Vertigo Reason Comments Vertigo Audio 07/17/24 Specialty Diagnoses / Procedures Referred By Contac t Referred To Contact Otolaryngology Diagnoses Vertigo Chronic maxillary sinusitis Procedures ID OFFICE/OUTPATIENT NEW HIGH MDM 60 MINUTES Minor Robles MD [address] [place] [address] Phone: tel: fax: Rosanne Meyer MD [address] [place] [address] [place] [address] Phone: tel: fax: Referral ID Status Reason Start Date Expiration Date V isits Requested Visits Authorized [id number] Closed Specialty Services Required 06/07/2024 12/04/2024 1 1 Care Teams (unrecognized sec tion and content) Team Status: Inactive Member Role Status Dates Kelli Monte APRN Attending Provider Active Site Surveyor Relationship Specialty Start Date End Date Minor Robles MD [address] [place] [address] PCP - General Family Medicine 07/29/22 Team Status: Active Member Role Status Dates Minor Robles MD Primary Care Provider Active Team Status: Inactive Member Role Status Dates Minor Robles MD Primary Care Provider Active Start: September 13, 2023 End: September 13, 2023 Danisha Guy APRN Attending Provider Active Start: September 13, 2023 End: September 13, 2023 Site Surveyor Relationship Specialty Start Date End Date Minor Robles MD [address] [place] [address] PCP - General Family Medicine 07/29/22 Site Surveyor Relationship Specialty Start Date End Date Minor Robles MD [address] [place] [address] PCP - General Family Medicine 07/29/22 Site Surveyor Relationship Specialty Start Date End Date Minor Robles MD [address] [place] [address] PCP - General Family Medicine 07/29/22 Site Surveyor Relationship Specialty Start Date End Date Minor Robles MD [address] [place] [address] PCP - General Family Medicine 07/29/22 Site Surveyor Relationship Specialty Start Date End Date Minor Robles MD [address] [place] [address] PCP - General Family Medicine 07/29/22 Site Surveyor Relationship Specialty Start Date End Date Minor Robles MD [address] [place] [address] [phone] PCP - General Family Medicine 07/29/22 Site Surveyor Relationship Specialty Start Date End Date Minor Robles MD [address] [place] [address] PCP - General Family Medicine 07/29/22 Site Surveyor Relationship Specialty Start Date End Date Minor Robles MD [address] [place] [address] PCP - General Family Medicine 07/29/22 Site Surveyor Relationship Specialty Start Date End Date Minor Robles MD (Fax) PCP - General Family Medicine 07/29/22 Site Surveyor Relationship Specialty Start Date End Date Minor Robles MD (Fax) PCP - General Family Medicine 07/29/22 Site Surveyor Relationship Specialty Start Date End Date Minor Robles MD (Fax) PCP - General Family Medicine 07/29/22 Site Surveyor Relationship Specialty Start Date End Date Minor Robles MD (Fax) PCP - General Family Medicine 07/29/22 Site Surveyor Relationship Specialty Start Date End Date Minor Robles MD [address] [place] [address] (Fax) PCP - General Family Medicine 06/07/24 Site Surveyor Relationship Specialty Start Date End Date Minor Robles MD [address] [place] [address] (Fax) PCP - General Family Medicine 06/07/24 Site Surveyor Relationship Specialty Start Date End Date Minor Robles MD [address] [place] [address] (Fax) PCP - General Family Medicine 06/07/24 Site Surveyor Relationship Specialty Start Date End Date Minor Robles MD [address] [place] [address] (Fax) PCP - General Family Medicine 06/07/24 Site Surveyor Relationship Specialty Start Date End Date Minor Robles MD [address] [place] [address] (Fax) PCP - General Family Medicine 06/07/24 Site Surveyor Relationship Specialty Start Date End Date Minor Robles MD [address] [place] [address] (Fax) PCP - General Family Medicine 06/07/24 Site Surveyor Relationship Specialty Start Date End Date Minor Robles MD [address] [facility] [place] [address] (Fax) PCP - General Family Medicine 06/07/24 Site Surveyor Relationship Specialty Start Date End Date Minor Robles MD [address] [facility] [place] [address] (Fax) PCP - General Family Medicine 06/07/24 [...] BE BASED ON THE PRIMARY CLINICAL RECORDS. [employer] [facility]. provides no warranty or guarantee of the accuracy or completeness of information in this document.
[2024-11-02] MEDS: OXYBUTYNIN CHLORIDE 5 MG TAB XL PO (22:00)
[2024-11-02] MEDS: HYDROMORPHONE HCL 1 MG/ML CARTRIDGE 0.5 MG IVP (22:02)
[2024-11-03] VITALS (28 sets, daily range): BP systolic 90–147; BP diastolic 54–85; PULSE 47–100; TEMP 36.4–36.9; O2SAT 92–100
[2024-11-03 06:01] LABS: Hematocrit 35.8 % (36.0-48.0); Hemoglobin 12.3 g/dL (12.0-16.0); Immature Granulocytes Abs Auto 0.04 10^3/uL (0.00-0.03); Immature Granulocytes Pct Auto 0.4 % (0.0-0.5); Lymphocytes Absolute Auto 3.8 10^3/uL (1.2-3.8); Mean Corpuscular HGB Conc 34.4 g/dL (29.9-35.2); Mean Corpuscular Hemoglobin 30.4 pg (26.7-34.0); Mean Corpuscular Volume 88.4 fL (81.0-99.0); Platelet Count 266 10^3/uL (150-450); Red Blood Count 4.05 10^6/uL (4.20-5.40); White Blood Count 11.2 10^3/uL (4.0-11.0)
[2024-11-03 06:05] LABS: Anion Gap 13.9; Blood Urea Nitrogen 15.0 mg/dL (7.0-18.0); Calcium 8.9 mg/dL (8.5-10.1); Carbon Dioxide 25.0 mmol/L (21.0-32.0); Chloride 108 mmol/L (98-107); Estimated GFR (African America >60 (>=60 mL/min/1.73m^2); Estimated GFR (Non-African Ame >60 (>=60 mL/min/1.73m^2); Glucose 99 mg/dL (74-106); Potassium 3.9 mmol/L (3.5-5.1); Sodium 143 mmol/L (136-145)
--- NOTE | 2024-11-03 07:45 | CM.NOTE ---
Rounds made with Dr. Daugherty, discussed plan of care with pt. Pt will go to OR this afternoon, remains NPO. Dr. Daugherty will reevaluate patient post-op for discharge planning. Pt will stay in OBS status.
--- NOTE | 2024-11-03 08:39 | PM.HP ---
HPI H&P: HPI History of Present Illness Chief complaint: ABDOMINAL PAIN, HYDRONEPHROSIS Narrative: Mrs. Church is a 59-year-old female with a known history of stones. The patient came in with pain in the left mid and lower abdomen associated with nausea sensation. She was found to have 7 mm ureteral stone with hydronephrosis. Patient reported having hematuria. No fever or chills. No seizure or convulsion. No chest pain or palpitation Opioid HPI Opioid Management Most Recent Pain and Opioid Data: Last Pain Scale 0 Today, 08:28 Last Pain Assessment 11/02/24, 22:00 Last MAR Pain Assessment 11/02/24, 17:28 Last ORT Total Score 0 11/02/24, 21:35 Last ORT Risk Category Low Risk 11/02/24, 21:35 [facility] PFS Medical History (Updated 11/03/24 @ 08:41 by Jluian Daugherty MD) History of kidney stones ?Z87.442 - Personal history of urinary calculi (ICD-10) Borderline diabetes ?R73.03 - Prediabetes (ICD-10) Hyperlipidemia ?E78.5 - Hyperlipidemia, unspecified (ICD-10) Surgical History (Updated 11/03/24 @ 00:05 by Dianna Howard RN) History of partial hysterectomy ?Z90.711 - Acquired absence of uterus with remaining cervical stump (ICD-10) Social History Highest level of school completed/degree received: some college, no degree Little interest or pleasure in doing things: not at all Feeling down, depressed, or hopeless: not at all Meds Home Medications and Allergies Home Medications ?Medication ?Instructions ?Recorded ?Confirmed ?Type aspirin 81 mg tablet,delayed 81 mg PO .3 times a week 11/02/24 11/02/24 History release (Adult Low Dose Aspirin) atorvastatin 40 mg tablet 40 mg PO QPM 11/02/24 11/02/24 History metformin 750 mg tablet,extended 750 mg PO BID 11/02/24 11/02/24 History release 24 hr Allergies Allergy/AdvReac Type Severity Reaction Status Date / Time No Known Drug Allergies Allergy Verified 11/02/24 15:47 Exam Narrative Exam Narrative: [pt is awake and alert. oriented to place, time and person HEENT: [place] conjunctiva and NL buccal mucosa Neck: Supple, no tenderness Endocrine: No Thyromegaly. Vascular: No JVD or carotid bruit. Lymphatic: No cervical lymphadenopathy. Chest: CTA no DTP. Heart RRR, no extra sound or murmur. Abd: Soft, tenderness in the left mid and lower abdomen, no rebound and no rigidity. Increase abd girth therefore clinically I could not exclude the possibility of intra abd mass or organomegaly. LE: No cyanosis or clubbing, no varices or edema. Neuro: A A O. Nl speech, comprehension and attention. Nl and symetrical motor and tone examination through out. []] Constitutional Vital Signs, click to edit/add: Last Vital Signs Temp 98.0 F 11/03/24 07:28 Pulse 55 L 11/03/24 07:28 Resp 16 11/03/24 07:28 BP 90/54 11/03/24 07:28 Pulse Ox 93 L 11/03/24 07:28 O2 Del Method Room Air 11/03/24 07:28 Results Labs Labs: Short CBC 11/02/24 11/03/24 Range/Units 16:50 04:53 WBC 17.2 H 11.2 H (4.0-11.0) 10^3/uL Hgb 14.9 12.3 (12.0-16.0) g/dL Hct 43.4 35.8 L (36.0-48.0) % Plt Count 313 266 (150-450) 10^3/uL BMP 11/02/24 11/03/24 16:50 04:53 Sodium 143 143 Potassium 3.9 3.9 Chloride 103 108 H Carbon Dioxide 27.0 25.0 BUN 18.0 15.0 Creatinine 0.92 0.74 Glucose 123 H 99 Calcium 9.9 8.9 Liver Function 11/02/24 Range/Units 16:50 Total Bilirubin 0.3 (0.2-1.0) mg/dL Direct Bilirubin 0.1 (0.0-0.2) mg/dL AST 21 (15-37) U/L ALT 38 (14-59) U/L Alkaline Phosphatase 132 H (46-116) U/L Albumin 4.2 (3.4-5.0) g/dL Urine 11/02/24 Range/Units 17:25 Urine Color Brown A (YELLOW) Urine Clarity Cloudy A (CLEAR) Urine pH Color interference A (5.0-9.0) Ur Specific [place] >=1.030 A (1.005-1.025) Urine Protein Color interference A (NEG/TRACE) mg/dL Urine Glucose (UA) Color interference A (NEGATIVE) mg/dL Assessment and Plan Assessment and Plan (1) Hydronephrosis concurrent with and due to calculi of kidney and ureter: (2) SIRS (systemic inflammatory response syndrome): Plan Obstructing left-sided ureteral stone, 7 mm. Hydronephrosis. SIRS present on admission. Pain, pain management. I had accepted to admit patient under observation N.p.o., IV fluid infusion, IV antibiotic As needed pain medication As needed nausea medication. Flomax. Urology consultation for the possible need of stent. Avoid pharmacological intervention until hematuria resolves postoperatively. Mechanical SCD. Monitor white count. Urine cultures pending.
--- NOTE | 2024-11-03 08:55 | ECG_ITS ---
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 Measurements Intervals [place] Rate: 54 P: 25 AL: 123 QRS: -43 QRSD: 129 T: 70 QT: 468 QTc: 446 Interpretive Statements SINUS BRADYCARDIA VENTRICULAR PREEXCITATION/WPW Compared to ECG 11/26/2017 06:41:19 No significant changes Electronically Signed On 11-03-2024 19:59:27 EDT by ANN LZOANO M.D.
--- NOTE | 2024-11-03 09:47 | SWNOTE1 ---
SW consulted for Advanced Directives. SW stopped in and spoke with pt in regards to Advanced Directives. She voiced she has the paperwork at home and has never filled it out. She voiced she is going to surgery soon and at this time does not want to completed HCPOA paperwork. SW provided her with the Advanced Directive booklet and SW contact. SW advised she can call the hospital any time and set up appointment with SW to get POA paperwork completed. SW also advised that if she is up to it later today, we can complete today. Pt voiced understanding.
--- NOTE | 2024-11-03 10:41 | PM.URCN ---
Urology - CN: HPI Date of Consult Consult date: 11/03/24 Requesting Physician: Julian Daugherty MD Primary Care Provider: KIET ROBLES Consult Narrative Reason for consult IM: Ureteral calculus on left Narrative: 59-year-old female admitted after presenting emergency department yesterday with a 1 day history of severe left lower quadrant abdominal pain accompanied by nausea and vomiting. No fevers, chills, chest pain, or shortness of breath. Urology consulted for evaluation of left ureteral and renal calculi. Patient has previously passed kidney stone spontaneously. cc:: CC: Julian Daugherty MD Review of Systems ROS Status of ROS: 10 or more systems reviewed and unremarkable except as noted in history and below [facility] Medical History (Updated 11/03/24 @ 08:41 by Julian Daugherty MD) History of kidney stones ?Z87.442 - Personal history of urinary calculi (ICD-10) Borderline diabetes ?R73.03 - Prediabetes (ICD-10) Hyperlipidemia ?E78.5 - Hyperlipidemia, unspecified (ICD-10) Surgical History History of partial hysterectomy ?Z90.711 - Acquired absence of uterus with remaining cervical stump (ICD-10) Social History Highest level of school completed/degree received: some college, no degree Little interest or pleasure in doing things: not at all Feeling down, depressed, or hopeless: not at all Meds Home Medications and Allergies Home Medications ?Medication ?Instructions ?Recorded ?Confirmed ?Type aspirin 81 mg tablet,delayed 81 mg PO .3 times a week 11/02/24 11/02/24 History release (Adult Low Dose Aspirin) atorvastatin 40 mg tablet 40 mg PO QPM 11/02/24 11/02/24 History metformin 750 mg tablet,extended 750 mg PO BID 11/02/24 11/02/24 History release 24 hr Allergies Allergy/AdvReac Type Severity Reaction Status Date / Time No Known Drug Allergies Allergy Verified 11/02/24 15:47 Exam Constitutional Vital Signs, click to edit/add: Last Vital Signs Temp 98.0 F 11/03/24 07:28 Pulse 55 L 11/03/24 07:28 Resp 16 11/03/24 07:28 BP 90/54 11/03/24 07:28 Pulse Ox 93 L 11/03/24 07:28 O2 Del Method Room Air 11/03/24 07:28 Common normals: no apparent distress HENMT Common normals: normocephalic Eye Common normals: EOMs intact bilaterally Respiratory Common normals: normal respiratory effort Cardio Common normals: regular rate GI Palpation: soft and tender (Left lower quadrant. No rebound or guarding) Bladder/kidney exam: bladder normal to palpation Back & Pelvis Common normals: no CVA tenderness Extremity Other: No calf tenderness to palpation bilaterally Neuro Common normals: oriented x3 Psych Common normals: mental status grossly normal Results Labs Labs: Short CBC 11/02/24 11/03/24 Range/Units 16:50 04:53 WBC 17.2 H 11.2 H (4.0-11.0) 10^3/uL Hgb 14.9 12.3 (12.0-16.0) g/dL Hct 43.4 35.8 L (36.0-48.0) % Plt Count 313 266 (150-450) 10^3/uL BMP 11/02/24 11/03/24 16:50 04:53 Sodium 143 143 Potassium 3.9 3.9 Chloride 103 108 H Carbon Dioxide 27.0 25.0 BUN 18.0 15.0 Creatinine 0.92 0.74 Glucose 123 H 99 Calcium 9.9 8.9 Liver Function 11/02/24 Range/Units 16:50 Total Bilirubin 0.3 (0.2-1.0) mg/dL Direct Bilirubin 0.1 (0.0-0.2) mg/dL AST 21 (15-37) U/L ALT 38 (14-59) U/L Alkaline Phosphatase 132 H (46-116) U/L Albumin 4.2 (3.4-5.0) g/dL Urine 11/02/24 Range/Units 17:25 Urine Color Brown A (YELLOW) Urine Clarity Cloudy A (CLEAR) Urine pH Color interference A (5.0-9.0) Ur Specific Mullens >=1.030 A (1.005-1.025) Urine Protein Color interference A (NEG/TRACE) mg/dL Urine Glucose (UA) Color interference A (NEGATIVE) mg/dL Imaging CT scan - abdomen: My impression: Images reviewed and report read. CT scan 11/02/2024 7 mm left mid ureteral calculus. 7 mm nonobstructing left kidney stone. Left hydronephrosis present. Urology Assessment and Plan Assessment and Plan (1) Hydronephrosis concurrent with and due to calculi of kidney and ureter: Assessment and Plan: 59-year-old female with 7 mm left mid ureteral calculus, 7 mm left kidney stone, gross hematuria, left hydronephrosis Plan: Treatment options discussed with patient. She elects for left ureteroscopy with laser lithotripsy and stent placement. Risk discussed with patient including pain, bleeding, infection, stent discomfort, inability to reach stone, and need for additional procedures. She understands that if we cannot reach the stone, a stent will be left in place and she will return for second procedure. Urinalysis reviewed. Only 2-5 white blood cells per high-powered field, therefore low likelihood of infection. Follow-up urine culture. If infection is evident intraoperatively, will place stent and return for second procedure. (2) SIRS (systemic inflammatory response syndrome):
--- NOTE | 2024-11-03 11:32 | PM.URSON ---
Urology Surgery Operative Note Operative Note Procedure Date: 11/03/24 Pre-op Diagnosis: Left ureteral and renal calculi Post-op Diagnosis: same as pre-op Procedures performed: Cystoscopy, left ureteroscopy, holmium laser lithotripsy of ureteral and renal calculi, left ureteral stent placement Anesthesia: General-LMA Primary Surgeon: Javier Ventura Complications: None Estimated blood loss (mL): 0 Findings: Left ureteral and renal stones fully dusted Specimens: None Drains: Left 6 x 26 double-J ureteral stent Indications for Procedures: 7 mm left mid ureteral calculi and 7 mm left renal calculus Detailed description of Procedure: Risks and benefits of the procedure were explained to the patient in the preoperative area and after informed consent was obtained the patient was taken back to the afternoon. Patient was transferred to the operating table and placed in supine position. General anesthesia was induced and the patient was administered intravenous ceftriaxone. She was placed in lithotomy position and prepped and draped in a sterile fashion. A timeout was performed to confirm patient identity and procedure. A 22 [place] cystoscope with a 30 degree lens was inserted through the patient's urethra and into the bladder. The urethral meatus was mildly narrow, but the scope passed through this area with the assistance of the extractor operator helper. Upon entering the bladder a full cystoscopic evaluation was performed, which demonstrated no gross abnormalities. Attention was turned to the left ureteral orifice. A guidewire advanced into the left ureteral orifice up to the kidney under fluoroscopy. A second wire was then placed through the cystoscope up to the kidney. A flexible ureteroscope was advanced over the guidewire and into the mid ureter where the obstruction stone was encountered. A 365 ?m laser fiber was inserted, and the stone was dusted into numerous smaller pieces. The scope was then advanced up to the kidney, where 2 stones were encountered. These were fully dusted using the laser fiber. The kidney was reevaluated and no large fragments remained. Ureteroscope was withdrawn down the ureter and no stones remained in the ureter. A 6 x 26 double-J ureteral stent was Reyes over the guidewire and up to the kidney under fluoroscopy. The guidewire was removed and good proximal and distal curls were seen on fluoroscopy. The bladder strength of the cystoscope and the patient was awoken and transferred to PACU. No instruments and equipment were accounted for thing of the procedure. Disposition: The patient was transferred to PACU in good condition. Follow-up: The patient will [facility]-up with [facility] in 1 week for left ureteral stent removal.
[2024-11-03] MEDS: ACETAMINOPHEN 325 MG TABLET 650 MG PO ×2 (13:31→19:57)
--- NOTE | 2024-11-03 20:02 | PC.NURSE ---
reddish pink urine
[2024-11-03] MEDS: OXYBUTYNIN CHLORIDE 5 MG TAB XL PO (21:19)
[2024-11-03] MEDS: ATORVASTATIN CALCIUM 40 MG TABLET PO (21:19)
[2024-11-04] VITALS (9 sets, daily range): BP systolic 120–126; BP diastolic 69–76; PULSE 39–80; TEMP 36.6–36.8; O2SAT 93–95
[2024-11-04 07:25] LABS: Hematocrit 37.0 % (36.0-48.0); Hemoglobin 12.3 g/dL (12.0-16.0); Mean Corpuscular HGB Conc 33.2 g/dL (29.9-35.2); Mean Corpuscular Hemoglobin 29.8 pg (26.7-34.0); Mean Corpuscular Volume 89.6 fL (81.0-99.0); Platelet Count 236 10^3/uL (150-450); Red Blood Count 4.13 10^6/uL (4.20-5.40); White Blood Count 9.0 10^3/uL (4.0-11.0)
[2024-11-04 07:52] LABS: Anion Gap 14.4; Blood Urea Nitrogen 13.0 mg/dL (7.0-18.0); Calcium 8.6 mg/dL (8.5-10.1); Carbon Dioxide 24.9 mmol/L (21.0-32.0); Chloride 108 mmol/L (98-107); Estimated GFR (African America >60 (>=60 mL/min/1.73m^2); Estimated GFR (Non-African Ame >60 (>=60 mL/min/1.73m^2); Glucose 105 mg/dL (74-106); Potassium 4.3 mmol/L (3.5-5.1); Sodium 143 mmol/L (136-145)
[2024-11-04] MEDS: OXYBUTYNIN CHLORIDE 5 MG TAB XL PO (09:38)
[2024-11-04] MEDS: SENNOSIDES/DOCUSATE SODIUM 1 TAB TABLET PO (09:38)
[2024-11-04] MEDS: ACETAMINOPHEN 325 MG TABLET 650 MG PO (09:38)
[2024-11-04] MEDS: TAMSULOSIN HCL 0.4 MG CAPSULE PO (09:38)
--- NOTE | 2024-11-04 11:13 | P.DS_ITS ---
DS: Providers Provider Date of admission: 11/02/24 21:21 Primary care physician: KIET ROBLES Consults: 11/02/24 Consult to [place] Routine Reason for consult:: Advanced Directives 11/02/24 19:37 Consult to Urology Routine Consulting Provider: Javier Ventura Reason for consultation: Obstructing stone DS: Diagnosis Discharge Diagnosis (1) Hydronephrosis concurrent with and due to calculi of kidney and ureter: (2) SIRS (systemic inflammatory response syndrome): (3) Nchlt-Zrqejifzp-Vylxa (WPW) pattern: Plan As listed above, below and others that are not listed DS: Summary Hospital Course Hospital Course: Mrs. Church is a 59-year-old female who came in with left mid abdomen pain. She was found to have the following: Obstructing left-sided ureteral stone, 7 mm. Hydronephrosis. SIRS present on admission. Pain, pain management. Status post cystoscopy and stent placement Patient is feeling much better. She is ready physically and psychologically to go home. Patient will be discharged home on antibiotic as well as short course of Flomax and oxybutynin Patient is to follow-up with [facility] Abnormal EKG showing short PA and delta wave. Suspect Azzui-Gnlzxobnv-Equtt. Patient reported having episode of palpitation lasted for 10 seconds. Currently patient has borderline bradycardia. I would not put her on any blocking agent. I would recommend her to follow-up with the cardiology team. May need to have an echo and/or Holter monitor. If she starts having palpitation she would need EP evaluation. Hyperlipidemia Chronic medical conditions not listed above, incidental findings seen on labs and imaging. These would need to be addressed. Could be addressed when time and condition are appropriate. Could be addressed in the outpatient setting by PCP collaboration with other needed outpatient providers. Time Spent with Patient Time attestation: Total time spent providing and/or coordinating discharge services: Exam Constitutional Vital Signs, click to edit/add: Last Vital Signs Temp 98.3 F 11/04/24 06:51 Pulse 54 L 11/04/24 10:00 Resp 18 11/04/24 06:51 BP 120/71 11/04/24 06:51 Pulse Ox 95 11/04/24 06:51 O2 Del Method Room Air 11/04/24 06:51 DS: Data Data Completed and Pending Labs on day of discharge: Labs from last 24 hours 11/04/24 06:01 WBC 9.0 RBC 4.13 L Hgb 12.3 Hct 37.0 MCV 89.6 MCH 29.8 MCHC 33.2 RDW 13.2 Plt Count 236 MPV 11.1 Sodium 143 Potassium 4.3 Chloride 108 H Carbon Dioxide 24.9 Anion Gap 14.4 BUN 13.0 Creatinine 0.75 Est GFR ( Amer) >60 Est GFR (Non-Af Amer) >60 BUN/Creatinine Ratio 17.3 Glucose 105 Calcium 8.6 Preliminary micro results at discharge 11/02/24 17:25 Urine Culture - Preliminary Urine,Clean Catch Pending - Specimen sent to [facility] Discharge Plan Discharge Disposition: Home, Self-Care Condition: Good Discharge Medications: New tamsulosin 0.4 mg Capsule 0.4 mg PO QD Qty: 7 0RF oxybutynin chloride 5 mg Tablet Extended Release 24hr 5 mg PO BID Qty: 10 0RF cefuroxime axetil 500 mg tablet 500 mg PO BID 5 Days Qty: 10 0RF oxycodone 5 mg tablet 5 mg PO Q8H PRN (Reason: pain) Qty: 14 0RF Continued atorvastatin 40 mg tablet 40 mg PO QPM metformin 750 mg tablet extended release 24 hr 750 mg PO BID Patient Comments: takes 1st one at 5pm and 2nd one at bedtime aspirin [Adult Low Dose Aspirin] 81 mg tablet,delayed release (DR/EC) 81 mg PO .3 times a week Patient Comments: Mon, Wed, Fri Print Language: Hong Konger Activity Restrictions/Additional Instructions: I may not have addressed or treated all of your medical illnesses or the abnormal blood work or imaging studies during this hospitalization. Please ask your primary care provider to obtain [facility] records entirely to follow up on all of the abnormal physical, laboratory, and imaging findings that I have not addressed. Please return back to the emergency room or seek medical attention if your symptoms worsen or return. Your heart EKG showed that you may have Dkbct-Xmtpvuube-Bmldh syndrome that may cause you to have occasional palpitation and rapid heartbeat. Please follow-up with heart doctor. You may need to have further investigation such as echocardiogram and Holter monitor. Please report to the emergency room if you develop racing heartbeat. Discharging you from [facility] does not mean that your medical care ends here and now. You may still need additional monitoring, work up, investigation, and treatment plan to be handled from this point on by out patient providers including your primary care provider and specialists. For any medication question, please contact your retail pharmacist or your primary care provider. Thank you. Forms: Portal Instructions Referrals: KIET ROBLES [Primary Care Provider, Family Practice] ANN LOZANO [Physician, Cardiology] Javier Ventura MD [Physician, Urology]
--- NOTE | 2024-11-06 16:20 | CM.DCFOLLOWU ---
Person spoke with: Chayito How are you feeling? good How is your pain? no pain Did you understand your discharge instructions? yes Do you have any questions about your discharge instructions? no Were you given any prescriptions at discharge? yes Were you able to get your prescriptions filled? yes Do you understand how to take your medications as ordered? yes Do you have any questions about your follow up appointment and do you plan to keep your follow up appointment? no questions. Patient has follow up appt with PCP on 11.07.2024 and Urologist on 11.10.2024. Is there anything else that you would like to discuss? Patient states she still has blood in her urine. Patient was advised to call her Urologist to see if they would like to see her sooner than Wednesday (11.10.2024) Questions/Comments/Concerns/Other:
== END 2024-11-04 11:45 | disposition home or self-care (01) ==
LOC: ER 19:18 → MS 21:29
PROVIDERS: Physician Assistant; Urology; Admitting Provider Internal Medicine; Emergency Provider Emergency Medicine; PCP Family Medicine; Visit Provider Internal Medicine
PROC: (CPT 918; principal; 2024-11-03 10:30)
DX: N13.2 Hydronephrosis with renal and ureteral calculous obstruction (principal); R65.10 Systemic inflammatory response syndrome (SIRS) of non-infectious origin without acute organ dysfunction; R31.0 Gross hematuria; E78.5 Hyperlipidemia, unspecified; R73.03 Prediabetes; Z79.84 Long term (current) use of oral hypoglycemic drugs; Z90.711 Acquired absence of uterus with remaining cervical stump; Z87.442 Personal history of urinary calculi; I45.6 Pre-excitation syndrome; R94.31 Abnormal electrocardiogram [ECG] [EKG]; F17.210 Nicotine dependence, cigarettes, uncomplicated
CPT/HCPCS: 52356; 36415; 74177; 76000; 80048; 80076; 81001; 83605; 83690; 85025; 85027; 87086; 93005; 96361; 96365; 96366; 96375; 96376; 99285; 99406; G0378; J0696; J1171; J1885; J2250; J2405; J2704; J3010; Q9967

== ENCOUNTER 2024-12-01 13:10 | Outpatient (OUT) | payer OTHER, SELFPAY ==
--- OUTSIDE RECORDS SUMMARY | 2024-12-01 13:12 | XMS_ITS | CCD ---
Author Organization [facility] CliniSyin Care Team Providers Care Licensed Pesticide Applicator Name Role Phone MARGARET, DR SANTA Primary Care Unavailable HEMEYER, DR SANTA Admitting Unavailable HEMEYER, DR SANTA Attending Unavailable HEMEYER, DR SANTA Consulting Unavailable MARGARET, DR SANTA Primary Care Unavailable HEMEYER, DR SANTA Admitting Unavailable HEMEYER, DR SANTA Attending Unavailable HEMEYER, DR SANTA Consulting Unavailable WEST, DR IRENE Betancourt Consulting Unavailable ZIEBER, DR JULIET Fowler Consulting Unavailable MARGARET, DR SANTA Primary Care Unavailable MICHELLE SANTANA Admitting Unavailable MICHELLE SANTANA Attending Unavailable MICHELLE SANTANA Consulting Unavailable Mary Bowens Unavailable Kelli Monte Unavailable MASSIMO Monte Attending Provider [phone] Kiet Robles MD Primary Care Provider [phone] Kiet Robles MD Primary Care Provider [phone] Kiet Robles MD Primary Care Provider Amber Collins PA-C Attending Provider Amber Collins Attending UnavailAmber Ramos Admitting Unavailphuong e KIET ROBLES Referring Unavailable KIET ROBLES Attending Unavailable KIET ROBLES Referring Unavailable LIVIER AMBROSIO Attending Unavailable SULAIMAN MEYER Attending Unavailable KIET ROBLES Referring Unavailable IRENE MORAN Attending Unavailable SULAIMAN MEYER Referring Unavailable KIET ROBLES Attending Unavailable KIET ROBLES Attending Unavailable KIET ROBLES Attending Unavailable KIET ROBLES Attending Unavailable KIET ROBLES Attending Unavailable KIET ROBLES Primary Care Physician Unavail able CARSON CANTU Attending Unavail able CASRON CANTU Attending Unavail able Javier Ventura Referring Unavailable Javier Ventura Attending Unavailable Allergies Allergy Classification Reported Allergen(s) Allergy Type Date of Onset Reaction(s) Facility (1 source) No Known Medication Allergies; Translations: [No Known Medication Allergies] Propensity to adverse reactions (disorder) [facility] Repository Medications Current Medications Medication Drug Class(es) Dates Sig (Normalized) Sig (Original) aspirin 81 mg oral capsule (20 sources) Platelet Aggregation Inhibitor, Nonsteroidal Anti-inflammatory Drug Start: 11-10-2024 take 1 capsule by mouth every twenty-four hours aspirin 81 mg oral capsule 81 mg = 1 cap(s), Oral, q24hr Start Date: 11/10/24 Status: Ordered Repeat number: 1 ASPIRIN 81 MG ch ewable tablet Chew 81 mg 3 (three) times a week Active Baby Aspirin eliane ry other day Active atorvastatin 40 mg oral tablet (20 sources) HMG-CoA Reductase Inhibitor Start: 09-14-2022 End: 02-18-2025 take 1 tablet by mouth once daily atorvastatin 40 mg Tab 40 mg = 1 tab(s), Oral, Daily Start Date: 11/10/24 Status: Ordered Repeat number: 1 azelastine hydrochloride 0.137 mg/actuat metered dose nasal [...] mg by mouth Daily as needed Active cefuroxime 500 mg oral tablet (4 sources) Cephalosporin Antibacterial Start: 11-04-2024 take 1 tablet by mouth in the morning cefuroxime (Ceftin) 500 MG tablet Take 500 mg by mouth in the morning and 500 mg before bedtime. 11/04/2024 Active Start: 10-06-2023 End: 10-14-2023 take 1 tablet by mouth in the morning cefuroxime (Ceftin) 250 MG tablet Indications: Hematuria, unspecified type Take 1 tablet (250 mg) by mouth in the morning and 1 tablet (250 mg) before bedtime. Do all this for 5 days. 10 tablet 10/06/2023 10/14/2023 Discontinued (Therapy completed) ciprofloxacin 500 mg oral tablet (2 sources) [...] release oral tablet (20 sources) Biguanide Start: 11-10-2024 take 1 tablet by mouth twice daily metformin 750 mg ER Tab 750 mg = 1 tab(s), Oral, BID Start Date: 11/10/24 Status: Ordered Repeat number: 1 Start: 09-13-2023 Metformin Acti ve MG PO September 13, 2023 12:00am Start: [...] 10 days. 20 tablet 10/14/2023 10/24/2023 Active ondansetron 4 mg disintegrating oral tablet (2 sources) Serotonin-3 Receptor Antagonist Start: 11-07-2024 End: 11-17-2024 take 1 tablet by mouth every eight hours as needed for nausea and vomiting and nausea and nausea ondansetron ODT (Zofran-ODT) 4 MG disintegrating tablet Indications: Nausea Take 1 tablet (4 mg) by mouth every 8 (eight) hours if needed for nausea or vomiting for up to 10 days 30 tablet 11/07/2024 11/17/2024 Active 24 hr oxybutynin chloride 5 mg extended release oral tablet (2 sources) Cholinergic Muscarinic Antagonist Start: 11-04-2024 take 1 tablet by mouth every twenty-four hours in the morning oxybutynin XL (Ditropan-XL) 5 MG 24 hr tablet Take 5 mg by mouth in the morning and 5 mg before bedtime. 11/04/2024 Active sulfamethoxazole 800 mg / trimethoprim 160 [...] 10 days. 20 tablet 12/01/2023 12/11/2023 Active tamsulosin hydrochloride 0.4 mg oral capsule (2 sources) alpha-Adrenergic Helen Start: 11-04-2024 take 1 capsule by mouth once daily tamsulosin (Flomax) 0.4 MG 24 hr capsule Take 0.4 mg by mouth Daily 11/04/2024 Active Completed/Discontinued Medications Medication Drug Class(es) Dates Sig (Normalized) Sig (Original) Aircast Sport Ankle Brace/Rght - (3 sources) Start: 07-02-2018 Aircast Sport Ankle Brace/Rght - as directed ankle daily June, Not-Taking [id number] 200 actuat albuterol 0.09 mg/actuat metered dose [...] 21 capsule 11/17/2023 12/01/2023 Discontinued (Therapy completed) meclizine hydrochloride 25 mg [...] counseling] 10-26-2023 Episodic Calculus of urinary tract (9 sources) Personal history of urinary calculi; Translations: [...] 07-29-2022 07-29-2022 Chronic Diabetes mellitus without complication (2 sources) Diabetes mellitus; Translations: [Type 2 diabetes mellitus without complications] 09-13-2023 Chronic Diabetes mellitus without complication (20 sources) Prediabetes; Translations: [Prediabetes] Onset: 03-19-2023 03-09-2023 Episodic Disorders of lipid metabolism (20 sources) Mixed hyperlipidemia; Translations: [Mixed hyperlipidemia] Onset: 07-29-2022 03-09-2023 Chronic Essential hypertension (2 sources) Hypertensive disorder; Translations: [Essential (primary) hypertension] 09-13-2023 Chronic Genitourinary symptoms and ill-defined conditions (9 sources) Retention of urine, unspecified; Translations: [Personal history of urinary (tract) infections] Onset: 01-19-2021 Episodic Immunizations and screening for infectious disease (3 sources) Encounter for immunization; Translations: [Contact with and (suspected) exposure to other viral communicable diseases] Onset: 01-24-2021 Resolved: 01-24-2021 Episodic Nausea and vomiting (4 sources) Nausea; Translations: [Nausea] 10-14-2023 Episodic Neoplasms of unspecified nature or uncertain behavior (2 sources) Neoplasm of brain; 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] 09-13-2023 Chronic Other aftercare (2 sources) Patient encounter status; Translations: [Encounter for follow-up examination after completed treatment for conditions other than malignant neoplasm] 11-07-2024 Episodic Other connective tissue disease (4 sources) [...] source) Injury, unspecified, initial encounter Episodic Other injuries and conditions due to external causes (1 source) Foreign body in bladder; Translations: [Foreign body in bladder, initial encounter] Onset: 11-10-2024 Episodic Other lower respiratory disease (2 sources) [...] Onset: 03-13-2021 Episodic Other upper respiratory infections (3 sources) Acute upper respiratory infection, unspecified; Translations: [...] present; Translations: [Asymptomatic menopausal state] 10-26-2023 Episodic Residual codes; unclassified (1 source) Tobacco user 11-07-2024 Episodic Skin and subcutaneous tissue infections (4 [...] [Cigarette smoker ] Onset: 01-20-2021 03-09-2023 Chronic Comment on above: Added secondary to d ocumentation in Social History. Urinary tract infections (2 sources) Acute cystitis; Translations: [Acute cystitis with hematuria] 11-08-2024 Episodic Viral infection (2 sources) Acute viral disease; [...] vertigo, unspecified ear] Onset: 07-29-2022 07-29-2022 Episodic Other aftercare (20 sources) Polypharmacy ; Translations: [Other terminal clerk (current) drug therapy] Onset: 03-19-2023 03-19-2023 Episodic Other lower respiratory disease (13 sources) Nodule of lung; Translations: [Solitary pulmonary nodule] Onset: 11-08-2023 11-08-2023 Episodic Other lower respiratory disease (18 sources) Multiple nodules of lung; Translations: [Other nonspecific abnormal finding of lung field] Onset: 11-08-2023 05-15-2024 Episodic Peritonitis and intestinal abscess (2 sources) Peritonitis; Translations: [Peritonitis, unspecified] 10-14-2023 Episodic Unclassified (1 source) Suspected COVID-19 virus infection Z20.822 Results Test Name Value Interpretation Reference Range Facility Ambulatory Visit Summaryon 0 11-10-2024 Ambulatory Visit Summary Ambulatory Visit Summary CHAYITO CHURCH :1965 Visit Date:11/10/2024 Ambulatory Visit Instructions Your Diagnosis Foreign body of bladder Ureteral stone Kidney stone Your Care Team Attending Physician - CARSON CANTU MD Primary Care Physician - MARGARET LOVE, KIET Umanzor This Is Your Medications List aspirin (aspirin 81 mg oral capsule) atorvastatin (atorvastatin 40 mg Tab) metformin (metformin 750 mg ER Tab) Procedures Performed Cystoscopic insertion of ureteric stent (11/06/2024), Lithotripsy (11/03/2024), Partial hysterectomy, Tubal ligation. Discharge Vitals Heart Rate (Peripheral) 94 Respiratory Rate 18 Blood Pressure 148/86 Height 168 cm Height 66 in Weight 85 kg Weight 187.393 lb BMI 30.12 What to do next Scheduled Follow-Up Appointments Wednesday 10:45 AM EST With: CARSON CANTU MD Where: [facility] [address] [place] [address]- You Need to Complete the Following US Renal, 12/16/24, Routine, Order for future visit, Transport Mode: Ambulatory, Reason: Other (please specify), No, Kidney stone, Kidney stone, pp_set_radiology_sub specialty, [place] [facility] [place] XR Abdomen 1 View, 12/16/24, Routine, Order for future visit, Transport Mode: Ambulatory, Reason: Kidney stone, No, Kidney stone, pp_set_radiology_sub specialty, [place] [facility] [place] Medications What How Much When Instructions Unchanged aspirin (aspirin 81 mg oral capsule) 1 Capsules By Mouth Every 24 hours Unchanged atorvastatin (atorvastatin 40 mg Tab) 1 Tablets By Mouth Every day Unchanged metformin (metformin 750 mg ER Tab) 1 Tablets By Mouth 2 times a day Allergies No Known Medication Allergies Problems Ongoing - Any problem that you are currently receiving treatment for. Borderline diabetes History of kidney stones Hyperlipidemia Smoker Ureteral stone Patient Survey You may receive a survey via text or e-mail asking about your office visit. Please share your experience with us by completing your survey. We appreciate your feedback and thank you for choosing us for your care. Patient Portal You may access all of your results and other medical record information on our secure patient portal. If you are not signed up for this yet, please contact [email or web address] at [phone] to get signed up today. Language Information Language assistance services are available as needed. Normal [facility] Urology Office/Clinic Noteon 11-10-2024 Urology Office/Clinic Note Urology Office/Clinic Note Chief Complaint Cysto/Rt stent removal HPI Staff Cysto Rt stent removal History of Present Illness Tests reviewed: reviewed UA, referral records I have reviewed the previous health record information and history for this patient from external providers. I have reviewed and verified the staff HPI to be accurate for this encounter. Review of Systems PHQ Score Initial Depression Screen Score: 0 SCORE ROS - Provider Constitutional: denies weight loss, denies hot flashes. Eyes: denies eye problems. Gastrointestinal: denies nausea, denies vomiting. Cardiovascular: denies chest pain or angina. Integumentary: no dryness Musculoskeletal: denies musculoskeletal symptoms. ENMT: denies otolaryngeal symptoms. Respiratory: no shortness of breath. Heme/Lymph: denies easy bleeding tendency, denies easy bruising tendency. Psychiatric: no confusion, no anxiety. Genitourinary: See HPI. Physical Exam Vitals & Measurements HR: 94(Peripheral) RR: 18 BP: 148/86 HT: 168 cm HT: 66 in WT: 85 kg WT: 187.393 lb BMI: 30.12 General Appearance: alert , no acute distress, well nourished, well developed female. Procedure Operative Information Anesthesia Type: Local Procedure: Local Cystoscopy with Stent Removal Complications: None Surgical risks, benefits, details of the procedure have been explained to the patient. Full informed consent has been obtained. Intraoperative Information Prepped: Patient is placed in supine position. The patient was prepped with the Betadine solution. Anesthesia: 2% Xylocaine Jelly per urethra. Procedure: Cystoscopy and left stent removal. The flexible Cystoscope was passed in retrograde fashion into the bladder without difficulty. The bladder was viewed in entirety and found to be without tumors or stones. Mild inflammation was seen surrounding the orifice with the stent seen protruding from it. The stent was then grasped and removed in its entirety. Specimens Removed: None Postoperative Information The patient tolerated the procedure well and was subsequently discharged home. Assessment/Plan 59 yo F here for a Left Stent removal 1. Foreign body of bladder (T19.1XXA: Foreign body in bladder, initial encounter) Reports h/o kidney stones passed spontaneously Seen at [facility] 11/02/24 for acute suprapubic/LLQ pain. UA w/ gross blood Workup shows kidney function is wnl CT AP w con 11/02/24 shows 7 mm mid L ureteral stone with mild L hydro and a 7 mm nonobstructing stone L renal collecting system. S/p Cysto, L ureteroscopy, laser litho and L ureteral stent placement 11/03/24 L Ureteral Stent removed IO wo complications. -F/u in 2 mos w/ KUB and JAZMINE 2. Ureteral stone (N20.1: Calculus of ureter) See #1 3. Kidney stone (N20.0: Calculus of kidney) See #1 f/u in 2 months Follow-up With When Contact Information ALONDRA LOVE, HIWOT BYRD Additional Instructions: 2 mos w/ KUB and JAZMINE Patient Education Kidney Stones, Mivw-an-Caer Elina Garcia, personally scribed for Dr. Gallegos on 11/10/2024 10:16:40. . Portions of this record may have been created with voice recognition artificial intelligence software, specifically [email or web address], [email or web address] and or [employer]. Substitutions may have occurred due to the inherent limitations of voice recognition and artificial intelligence software. Documentation recorded by the scribe, Elina Santacruz, accurately reflects the services(s) I performed and decisions made by me. Authenticated by Dr. Cantu on 11/10/2024 12:00:14. Problem List/Past Medical History Ongoing Borderline diabetes History of kidney stones Hyperlipidemia Smoker Ureteral stone Historical No qualifying data Procedure/Surgical History Cystoscopic insertion of ureteric stent (11/06/2024), Lithotripsy (11/03/2024), Partial hysterectomy, Tubal ligation. Medications aspirin 81 mg oral capsule, 81 mg= 1 cap(s), Oral, q24hr atorvastatin 40 mg Tab, 40 mg= 1 tab(s), Oral, Daily metformin 750 mg ER Tab, 750 mg= 1 tab(s), Oral, BID Allergies No Known Medication Allergies Social History Alcohol Past. Liquor. 1-2 times per year., 11/07/2024 Tobacco 10 or more cigarettes (1/2 pack or more)/day in last 30 days, Smoker, current status unknown Tobacco Use:. Never Smokeless Tobacco Use:. Cigarettes, Yes, 11/10/2024 Family History Heart disease: Mother and Father. Normal [facility] Comment on above: Result Comment: Elec tronically Signed By: CARSON CANTU MD\.br\Date and Time Signed: 11/10/24 12:06 EDT\.br\Electronically Co-Signed By: Elina Santacruz\.br\Date and Time Co-Signed: 11/10/24 10:17 EDT Urine Cultureon 11-02-2024 Bacteria identified Cx Nom (U) <9,000 colonies/ml mixed bacterial skin contaminants 2 Days PERFORMED BY: [place] [address] PATHOLOGIST BOOK AGENT PAULO LUNA M.D. Normal [facility] Comment on above: Performed By: #### C UU #### [address] COMPREHENSIVE METABOLIC PANE [place] 08-08-2024 Albumin [Mass/Vol] 4.2 g/dL Normal 3.6-5.1 [facility] Comment on above: Performed By: #### 1 0231 #### [facility] [address] [place], [place] [id number] Facility Maintenance Worker: Farida Quiñones #### 7600 #### [facility] [address], [address] [place] [address] Facility Maintenance Worker: Nikunj Madrigal MD Albumin/Globulin [Mass ratio] 1.5 {ratio} Normal 1.0-2.5 [facility] Comment on above: Performed By: #### 1 0231 #### [facility] [address] Facility Maintenance Worker: Farida Quiñones #### 7600 #### [facility] [address], [address] [place] [address] Facility Maintenance Worker: Nikunj Madrigal MD ALP [Catalytic activity/Vol] 113 U/L Normal 37-153 [facility] Comment on above: Performed By: #### 1 0231 #### [facility] Facility Maintenance Worker: Farida Quiñones #### 7600 #### [facility] [address], [address] [place] [address] Facility Maintenance Worker: Nikunj Madrigal MD ALT [Catalytic activity/Vol] 27 U/L Normal 6-29 [facility] Comment on above: Performed By: #### 1 0231 #### [facility] [address] [place], [place] [id number] Facility Maintenance Worker: Farida Quiñones #### 7600 #### [facility] [place] [address] Facility Maintenance Worker: Nikunj Madrigal MD AST [Catalytic activity/Vol] 16 U/L Normal 10-35 [facility] Comment on above: Performed By: #### 1 0231 #### [facility] [address] [place], [place] [id number] Facility Maintenance Worker: Farida Quiñones #### 7600 #### [facility] [address], [address] [place] [address] Facility Maintenance Worker: Nikunj Madrigal MD Bilirubin [Mass/Vol] 0.5 mg/dL Normal 0.2-1.2 [facility] Comment on above: Performed By: #### 1 0231 #### [facility] [address] [place], [place] [id number] Facility Maintenance Worker: Farida Quiñones #### 7600 #### [facility] [address], [address] [place] [address] Facility Maintenance Worker: Nikunj Mardigal MD BUN/CREATININE RATIO SEE NOTE: Normal 6-22 [facility] Comment on above: Result Comment: Not Reported: BUN and Creatinine are within reference range. Performed By: #### 1 0231 #### [facility] [address] [place] [address] Facility Maintenance Worker: Farida Quiñones #### 7600 #### [facility] [address], [address] [place] [address] Facility Maintenance Worker: Nikunj Madrigal MD Calcium [Mass/Vol] 9.5 mg/dL Normal 8.6-10.4 [facility] Comment on above: Performed By: #### 1 0231 #### [facility] [address] [place], [place] [id number] Facility Maintenance Worker: Farida Quiñones #### 7600 #### [facility] [place] [address] [place] , [address] [place] [address] Facility Maintenance Worker: Nikunj Madrigal MD Chloride [Moles/Vol] 107 mmol/L Normal 98-110 [facility] Comment on above: Performed By: #### 1 0231 #### [facility] [address] [place], [place] [id number] Facility Maintenance Worker: Farida Quiñones #### 7600 #### [facility] [place] [address] [facility], [address] [place] [address] Facility Maintenance Worker: Nikunj Madrigal MD CO2 [Moles/Vol] 24 mmol/L Normal 20-32 [facility] Comment on above: Performed By: #### 1 0231 #### [facility] [address] [place], [place] [id number] Facility Maintenance Worker: Farida Quiñones #### 7600 #### [facility] [address], [address] [place] [address] Facility Maintenance Worker: Nikunj Madrigal MD Creatinine [Mass/Vol] 0.61 mg/dL Normal 0.50-1.03 [facility] Comment on above: Performed By: #### 1 0231 #### [facility] [address] [place] [address] Facility Maintenance Worker: Farida Quiñones #### 7600 #### [facility] [address], [address] [place] [address] Facility Maintenance Worker: Nikunj Madrigal MD GFR/1.73 sq M.predicted among non-blacks MDRD (S/P/Bld) [Vol rate/Area] 104 mL/min/{1.73_m2} Normal > OR = 60 [facility] Comment on above: Performed By: #### 1 0231 #### [facility] [address] [place], [place] [id number] Facility Maintenance Worker: Farida Quiñones #### 7600 #### [facility] [address], [address] [place] [address] Facility Maintenance Worker: Nikunj Madrigal MD Globulin (S) [Mass/Vol] 2.8 g/dL Normal 1.9-3.7 [facility] Comment on above: Performed By: #### 1 0231 #### [facility] [address] [place] [address] Facility Maintenance Worker: Farida Quiñones #### 7600 #### [facility] [address], [address] [place] [address] Facility Maintenance Worker: Nikunj Madrigal MD Glucose [Mass/Vol] 104 mg/dL High 65-99 [facility] Comment on above: Result Comment: Fasting reference interval For someone without known diabetes, a glucose value between 100 and 125 mg/dL is consistent with prediabetes and should be confirmed with a follow-up test. Performed By: #### 1 0231 #### [facility] [address] Facility Maintenance Worker: Farida Quiñones #### 7600 #### [facility] [address], [address] [place] [address] Facility Maintenance Worker: Nikunj Madrigal MD Potassium [Moles/Vol] 4.5 mmol/L Normal 3.5-5.3 [facility] Comment on above: Performed By: #### 1 0231 #### [facility] [id number] Facility Maintenance Worker: Farida Quiñones #### 7600 #### [facility] [address], [address] [place] [address] Facility Maintenance Worker: Nikunj Madrigal MD Protein [Mass/Vol] 7.0 g/dL Normal 6.1-8.1 [facility] Comment on above: Performed By: #### 1 0231 #### [facility] [address] [place], [place] [address] Facility Maintenance Worker: Farida Quiñones #### 7600 #### [facility] [address], [address] [place] [address] Facility Maintenance Worker: Nikunj Madrigal MD Sodium [Moles/Vol] 142 mmol/L Normal 135-146 [facility] Comment on above: Performed By: #### 1 0231 #### [facility] [address] [place] [id number] Facility Maintenance Worker: Farida Quiñones #### 7600 #### [facility] [address], [address] [place] [address] Facility Maintenance Worker: Nikunj Madrigal MD Urea nitrogen [Mass/Vol] 12 mg/dL Normal 7-25 [facility] Comment on above: Performed By: #### 1 0231 #### [facility] [place] [address] Facility Maintenance Worker: Farida Quiñones #### 7600 #### [facility] [address] [facility], [address] Facility Maintenance Worker: Nikunj Madrigal MD LIPID PANEL, [facility] 07-17 Cholesterol [Mass/Vol] 162 mg/dL Normal <200 [facility] Comment on above: Order Comment: FASTI NG:YES FASTING: YES Performed By: #### 1 0231 #### [facility] [address] [place], [place] [address] Facility Maintenance Worker: Farida Quiñones #### 7600 #### [facility] [address] [place] [address], [address] [place] [address] Facility Maintenance Worker: Nikunj Madrigal MD Cholesterol in HDL [Mass/Vol] 48 mg/dL Low > OR = 50 [facility] Comment on above: Order Comment: FASTI NG:YES FASTING: YES Performed By: #### 1 0231 #### [facility] [address] [place] [address] Facility Maintenance Worker: Farida Quiñones #### 7600 #### [facility] [address] [facility], [address] [place], [place] [id number] Facility Maintenance Worker: Nikunj Madrigal MD Cholesterol in LDL [Mass/Vol] 86 mg/dL Normal [facility] Comment on above: Order Comment: FASTI NG:YES [...] LDL-C. Preston LAMB et al. CAROLYN. 2013;310(19): 7884-6348 (http://education.[employer]/faq/TZC815) Performed By: #### 1 0231 #### [facility] [address] [place], [place] [id number] Facility Maintenance Worker: Farida Quiñones #### 7600 #### [facility] [address], [address] [place] [address] Facility Maintenance Worker: Nikunj Madrigal MD Cholesterol.total/C holesterol in HDL [Mass ratio] 3.4 {ratio} Normal <5.0 [facility] Comment on above: Order Comment: FASTI NG:YES FASTING: YES Performed By: #### 1 0231 #### [facility] [address] [place], [place] [id number] Facility Maintenance Worker: Farida Quiñones #### 7600 #### [facility] [address], [address] [place] [address] Facility Maintenance Worker: Nikunj Madrigal MD NON HDL CHOLESTEROL 114 mg/dL (calc) Normal <130 [facility] Comment on above: Order Comment: FASTI NG:YES FASTING: YES Result Comment: For patients with diabetes plus 1 major ASCVD risk factor, treating to a non-HDL-C goal of <100 mg/dL (LDL-C of <70 mg/dL) is considered a therapeutic option. Performed By: #### 1 0231 #### [facility] [address] [place], [place] [id number] Facility Maintenance Worker: Farida Quiñones #### 7600 #### [facility] [address], [address] [place] [address] Facility Maintenance Worker: Nikunj Madrigal MD Triglyceride [Mass/Vol] 190 mg/dL High <150 [facility] Comment on above: Order Comment: FASTI NG:YES FASTING: YES Performed By: #### 1 0231 #### [facility] [address] [place], [place] [id number] Facility Maintenance Worker: Farida Quiñones #### 7600 #### [facility] [address], [address] [place] [address] Facility Maintenance Worker: Nikunj Madrigal MD Auditory function testson Right Ear: Mild to sensorineural hearing loss from 500 Hz - 2K Hz rising to normal hearing at 3K Hz. Mild sensorineural hearing loss at 4K Hz rising to normal hearing from 6K Hz - 8K Hz Left Ear: Mild to sensorineural hearing loss from 500 Hz - 2K Hz rising to normal hearing above 2K Hz. [facility] [employer] [facility] [employer] MR BRAIN WO CONTRASTon 06-06 MR BRAIN WO CONTRAST Exam: MR BRAIN WO CONTRAST Clinical History: Chronic vertigo, nystagmus, ataxia, positve Romberg test, bilateral tinnitus Reference Exam: No comparison FINDINGS: Technique: Multiplanar MRI evaluation of the brain is submitted, having been acquired in the dedicated neurovascular coil, without IV contrast, performed on 1.5 Kerri MRI system. Imaging findings: Ventricles/sulci/fis sures: Normal appearing CSF-containing spaces. Masses/hemorrhage/mi dline shift: Negative for mass effect or midline [...] by the interpreting Radiologist. Normal Not Available Quick Strepon 01-12-2023 S. pyogenes Org specific cx Ql (Throat) Negative [employer] Other Quick Strep [employer] Other SARS-CoV-2 (COVID-19) RNA NA A+probe Ql (Resp)on 01-12-2023 SARS-CoV-2 (COVID-19) RNA ARMANDO+probe Ql (Unsp spec) Negative [employer] Other XR ankle LT min 3V*on 2022 XR ankle LT min 3V* [facility] [employer] Other XR ankle LT min 3V* [facility] [employer] Other XR ankle LT min 3V* [address] [place] [address] [employer] Other XR ankle LT min 3V* [place] [address] [employer] Other XR ankle LT min 3V* XRay Report Nort [employer] Other XR ankle LT min 3V* Signed [employer] Other XR ankle LT min 3V* Patient: Chayito Church MR#: [id number] [place] [employer] Other XR ankle LT min 3V* 3 [employer] Other XR ankle LT min 3V* : 1965 Acct:[id number] [employer] Other XR ankle LT min 3V* Age/Sex: 57 / F ADM Date: 07/21/22 [employer] Other XR ankle LT min 3V* Loc: XDUCLY Room: Type: REG CLI [employer] Other XR ankle LT min 3V* Attending Dr: Kelli Monte APRN [employer] Other XR ankle LT min 3V* Copies to: Kelli Monte APRN [employer] Other XR ankle LT min 3V* Ordering Provider: Kelli Monte APRN [employer] Other XR ankle LT min 3V* Date of Service: 07/21/22 [employer] Other XR ankle LT min 3V* XR/XR ankle LT min 3V*: Injury [employer] Other XR ankle LT min 3V* 3 views left ankle plain film [employer] Other XR ankle LT min 3V* COMPARISON: None [employer] Other XR ankle LT min 3V* HISTORY: Left ankle pain. Injury. [employer] Other XR ankle LT min 3V* ACUTE FINDINGS: None [employer] Other XR ankle LT min 3V* DEGENERATIVE CHANGE: Unremarkable [employer] Other XR ankle LT min 3V* SOFT TISSUE FINDINGS: Lateral soft tissue swelling. [employer] Other XR ankle LT min 3V* JOINT EFFUSION: None [employer] Other XR ankle LT min 3V* POSTOP CHANGES: None [employer] Other XR ankle LT min 3V* BONE MINERALIZATION: Adequate [employer] Other XR ankle LT min 3V* XR/XR ankle LT min 3V* [employer] Other XR ankle LT min 3V* IMPRESSION: No acute fracture [employer] Other XR ankle LT min 3V* Impression dictated by: Pete Wetzel M.D.07/21/2022 1:36 PM [employer] Other XR ankle LT min 3V* Dictation Location: [place] [address] [employer] Other XR ankle LT min 3V* Transcribed By: CHARISMA 07/21/22 1336 [employer] Other XR ankle LT min 3V* Dictated By: Pete Wetzel DO 07/21/22 1335 [employer] Other XR ankle LT min 3V* Signed By: [employer] Other XR ankle LT min 3V* 07/21/22 1336 No rt [employer] Other MG MAMM SCREEN 3D KG CADon 03-13-2021 MG MAMM SCREEN 3D KG CAD Patient: CHAYITO CHURCH Exam Date: 03/13/2021 : 1965 Gender:F Ordering : DR KIET ROBLES . Admission #: [id number] Family : Order #: [id number] CLICK HERE TO VIEW EXAM RADIOLOGY REPORT [...] prostate cancer at age 82. LOCATION: [facility] BREAST COMPOSITION: Heterogeneously dense,which may obscure small [...] Kincaid MD on 03/13/2021 at 11:23 Normal [facility] XR DEXA BONE DENSITYon 03-13 XR DEXA [...] by: JULIET BROWN Date: 2021-03-13 11:24 Normal [facility] 02-28-2021 Albumin [Mass/Vol] 4.2 g/dL Normal 3.6-5.1 [facility] Comment on above: Performed By: #### C AARON, LIPD #### [facility] [address] [place], [place] [id number] Albumin/Globulin [Mass ratio] 1.6 {ratio} Normal 1.0-2.[address] [facility] Comment on above: Performed By: #### C AARON, LIPD #### [facility] [address] [place], [place] [id number] ALP [Catalytic activity/Vol] 139 U/L High 35-[address] [facility] Comment on above: Performed By: #### C AARON, LIPD #### [facility] [address] [place], [place] [id number] ALT [Catalytic activity/Vol] 22 U/L Normal 6-[address] [facility] Comment on above: Result Comment: 01/15 Female reference range changed. Performed By: #### C MP, LIPD #### [facility] [address] [place], [place] [id number] Anion gap [Moles/Vol] 18 mmol/L Normal 12-20 [facility] Comment on above: Result Comment: Effe ctive 02/20/2019 reference range changed. Performed By: #### C MP, LIPD #### [facility] [address] [place], [place] [id number] AST [Catalytic activity/Vol] 16 U/L Normal 9-34 [facility] Comment on above: Performed By: #### ALEXANDER Mcneal MP #### [facility] [address] [place], [place] [id number] BUN/CREA 20 Ratio Normal 6-[address] [facility] Comment on above: Performed By: #### C ALEXANDER WALKER #### [facility] [address] [place], [place] [id number] Calcium [Mass/Vol] 9.7 mg/dL Normal 8.6-10.2 [facility] Comment on above: Performed By: #### C ALEXANDER WALKER #### [facility] [address] [place], [place] [id number] Chloride [Moles/Vol] 102 mmol/L Normal 98-[address] [facility] Comment on above: Performed By: #### C ALEXANDER WALKER #### [facility] [address] [place], [place] [id number] CO2 [Moles/Vol] 24 mmol/L Normal 20-[address] [facility] Comment on above: Performed By: #### ALEXANDER Mcneal MP #### [facility] [address] [place], [place] [id number] Creatinine [Mass/Vol] 0.8 mg/dL Normal 0.6-1.[address] [facility] Comment on above: Performed By: #### ALEXANDER Mcneal MP #### [facility] [address] [place], [place] [id number] eGFRAA 96 mL/min/1.73m2 Normal >[address] [facility] Comment on above: Performed By: #### ALEXANDER Mcneal MP #### [facility] [address] [place], [place] [id number] eGFRNAA 79 mL/min/1.73m2 Normal >[address] [facility] Comment on above: Performed By: #### C ALEXANDER WALKER #### [facility] [address] [place], [place] [id number] Globulin (S) [Mass/Vol] 2.7 g/dL Normal 1.9-3.[address] [facility] Comment on above: Performed By: #### Fredis WALKER LIPJanes #### [facility] [address] [place], [place] [id number] Glucose [Mass/Vol] 107 mg/dL High 65-99 [facility] Nanny/Household Manager Comment on above: Result Comment: For FASTING Glucose --- ADA reference ranges: Normal 65-99 mg/dl Prediabetes 100-125 Diabetes >/= 126 Performed By: #### C AARON, LIPD #### [facility] [address] [place], [place] [id number] Potassium [Moles/Vol] 4.6 mmol/L Normal 3.5-5.5 [facility]/Household [facility] Comment on above: Performed By: #### C AARON, LIPD #### [facility] [address] [place], [place] [id number] Protein [Mass/Vol] 6.9 g/dL Normal 6.1-8.1 [facility] Nanny/Household Manager Comment on above: Performed By: #### C AARON, LIPD #### [facility] [address] [place], [place] [id number] Sodium [Moles/Vol] 139 mmol/L Normal 135-146 [facility] Nanny/Household Manager Comment on above: Performed By: #### C AARON, LIPD #### [facility] [address] [place], [place] [id number] TBIL <0.3 Normal [facility] Comment on above: Performed By: #### C AARON, LIPD #### [facility] [address] [place], [place] [id number] Urea nitrogen [Mass/Vol] 15 mg/dL Normal 7-25 [facility]anny/Household Manager Comment on above: Performed By: #### C AARON LIPD #### [facility] [address] [place], [place] [id number] Lipid Panelon 02-28-2021 Cholesterol [Mass/Vol] 243 mg/dL High 125-200 [facility] Nanny/Household Manager Comment on above: Result Comment: Low risk < 200mg/dL Borderline risk 201-239 mg/dl High risk > or equal to 240 Performed By: #### C MP, LIPD #### [facility] [address] [place], [place] [id number] Cholesterol in HDL [Mass/Vol] 42 mg/dL Normal >40 [facility] Nanny/Household Manager Comment on above: Result Comment: High Cardiovascular Risk HDL <40 mg/dL Low Cardiovascular Risk HDL > or equal to 60 mg/dl Performed By: #### C MP, LIPD #### [facility] [address] [place], [place] [id number] Cholesterol in LDL [Mass/Vol] 162 mg/dL Normal [facility] Comment on above: Result Comment: LDL ATP III CLASSIFICATION LDL less than 100 mg/dl Optimal LDL 100-129 mg/dl Near or above optimal LDL 130-159 Borderline high LDL 160-189 High LDL greater than 189 mg/dl Very High Performed By: #### C MP, LIPD #### [facility] [address] [place], [place] [id number] Cholesterol in VLDL [Mass/Vol] 39 mg/dL Normal [facility] Comment on above: Performed By: #### C MP, LIPD #### [facility] [address] [place], [place] [id number] Cholesterol.total/C holesterol in HDL [Mass ratio] 6 {ratio} Normal [facility] Comment on above: Performed By: #### C MP, LIPD #### [facility] [address] [place], [place] [id number] Triglyceride [Mass/Vol] 194 mg/dL High 30-150 [facility] Comment on above: Result Comment: TRIG ATPIII CLASSIFICATIONS TRIG less than 150 mg/dl Normal TRIG 150-199 mg/dl Borderline High TRIG 200-500 mg/dl High TRIG greather than 500 mg/dl Very High Performed By: #### C MP, LIPD #### [facility] [address] [place], [place] [id number] COVID Quick Testingon 2020 Result Positive [employer] Other Quick Fluon 01-24-2021 FLUAV Ab CF (S) [Titer] Negative [employer] Other FLUBV Ab CF (S) [Titer] Negative [employer] Other ER URINE PROFILEon 1 Bilirubin Ql (U) Negative Normal NEGATIVE [facility] Comment on above: Performed By: #### E RUR #### [facility] [address] [place] [address] Dr. Aba Robison Clarity (U) CLEAR Normal CLEAR [facility] Comment on above: Performed By: #### E RUR #### [facility] [address] [place] [address] Dr. Aba Robison Color (U) LT. YELLOW Normal YELLOW [facility] Comment on above: Performed By: #### E RUR #### [facility] [address] [place] [address] Dr. Aba HERNADEZ A micrscopic examination will be performed if indicated. Normal [facility] Comment on above: Performed By: #### E RUR #### [facility] [address] [place] [address] Dr. Aba Robison Glucose Ql (U) Negative Normal NEGATIVE [facility] Comment on above: Performed By: #### E RUR #### [facility] [address] [place] [address] Dr. Aba Robison Hemoglobin Ql (U) Negative Normal NEGATIVE [facility] Comment on above: Performed By: #### E RUR #### [facility] [address] [place] [address] Dr. Aba Robison Ketones Ql (U) Negative Normal NEGATIVE [facility] Comment on above: Performed By: #### E RUR #### [facility] [address] [place] [address] Dr. Aba Robison LEUKOCYTES Negative Normal NEGATIVE [facility] Comment on above: Performed By: #### E RUR #### [facility] [address] [place] [address] Dr. Aba Robison Nitrite Ql (U) Negative Normal NEGATIVE [facility] Comment on above: Performed By: #### E RUR #### [facility] [address] [place] [address] Dr. Aba Robison pH (U) 5.5 [pH] Normal 5-9 [facility] Comment on above: Performed By: #### E RUR #### [facility] [address] [place] [address] Dr. Aba Robison SPEC GRAVITY >=1.030 Abnormal 1.005-<=1.025 [facility] Comment on above: Performed By: #### E RUR #### [facility] [address] [place] [address] [address] Aba Robison UA PROTEIN Negative Normal NEGATIVE/ TRACE [facility] Comment on above: Performed By: #### E RUR #### [facility] [address] [place] [address] [address] Aba Robison UR MICRO IND NOT INDICATED Normal [facility] Comment on above: Performed By: #### E RUR #### [facility] [address] [place] [address] [address] Aba Robison Urobilinogen Qn (U) 0.2 {Roz'U}/dL Normal 0.2 - 1. 0 [facility] Comment on above: Performed By: #### E RUR #### [facility] [address] [place] [address] Dr. Aba Robison Vital Signs Date Time Vital Sign Value Performing Clinician Facility 11-07-2024 13:50-0400 Body height 167.6 cm Kiet Robles MD Work Phone: [facility] 11-07-2024 13:50-0400 Body mass index (BMI) [Ratio] 30.02 kg/m2 Kiet Robles MD Work Phone: [facility] 11-07-2024 13:50-0400 Body weight 84.37 kg Kiet Robles MD Work Phone: [facility] 11-07-2024 13:50-0400 Heart rate 112 /min Kiet Robles MD Work Phone: [facility] 11-07-2024 13:50-0400 SaO2% (BldA) [Mass fraction] 97 % Kiet Robles MD Work Phone: [facility] 08-22-2024 09:53-0400 Body height 167.6 cm Kiet Robles MD Work Phone: [facility] 08-22-2024 09:53-0400 Body mass index (BMI) [Ratio] 30.1 kg/m2 Kiet Robles MD Work Phone: [facility] 08-22-2024 09:53-0400 Body weight 84.6 kg Kiet Robles MD Work Phone: [facility] 08-22-2024 09:53-0400 Diastolic blood pressure 78 mm[Hg] Kiet Robles MD Work Phone: [facility] 08-22-2024 09:53-0400 Heart rate 77 /min Kiet Robles MD Work Phone: [facility] 08-22-2024 09:53-0400 SaO2% (BldA) [Mass fraction] 97 % Kiet Robles MD Work Phone: [facility] 08-22-2024 09:53-0400 Systolic blood pressure 128 mm[Hg] Kiet Robles MD Work Phone: [facility] 07-18-2024 10:51-0400 Body height 167.6 cm Sulaiman Meyer MD Work Phone: [facility] 07-18-2024 10:51-0400 Body mass index (BMI) [Ratio] 30.02 kg/m2 Sulaiman Meyer MD Work Phone: [facility] 07-18-2024 10:51-0400 Body weight 84.37 kg Sulaiman Meyer MD Work Phone: [facility] 07-18-2024 10:51-0400 Diastolic blood pressure 65 mm[Hg] Sulaiman Meyer MD Work Phone: [facility] 07-18-2024 10:51-0400 Heart rate 95 /min Sulaiman Meyer MD Work Phone: [facility] 07-18-2024 10:51-0400 Systolic blood pressure 147 mm[Hg] Sulaiman Meyer MD Work Phone: [facility] 05-18-2024 09:06-0400 Body height 167.6 cm Kiet Robles MD Work Phone: [facility] 05-18-2024 09:06-0400 Body mass index (BMI) [Ratio] 30.02 kg/m2 Kiet Robles MD Work Phone: [facility] 05-18-2024 09:06-0400 Body weight 84.37 kg Kiet Robles MD Work Phone: [facility] 02-22-2024 09:57-0500 Body height 167.6 cm Kiet Robles MD Work Phone: [facility] 02-22-2024 09:57-0500 Body mass index (BMI) [Ratio] 30.02 kg/m2 Kiet Robles MD Work Phone: [facility] 02-22-2024 09:57-0500 Body weight 84.37 kg Kiet Robles MD Work Phone: [facility] 02-22-2024 09:57-0500 Heart rate 85 /min Kiet Robles MD Work Phone: [facility] 02-22-2024 09:57-0500 SaO2% (BldA) [Mass fraction] 97 % Kiet Robles MD Work Phone: [facility] 12-01-2023 14:30-0400 Body height 167.6 cm Kiet Robles MD Work Phone: [facility] 12-01-2023 14:30-0400 Body mass index (BMI) [Ratio] 30.02 kg/m2 Kiet Robles MD Work Phone: [facility] 12-01-2023 14:30-0400 Body weight 84.37 kg Kiet Robles MD Work Phone: [facility] 11-17-2023 11:38-0400 Heart rate 106 /min Kiet Robles MD Work Phone: [facility] 11-17-2023 11:38-0400 SaO2% (BldA) [Mass fraction] 99 % Kiet Robles MD Work Phone: [facility] 11-08-2023 09:58-0400 Body height 167.6 cm Kiet Robles MD Work Phone: [facility] 11-08-2023 09:58-0400 Body mass index (BMI) [Ratio] 30.02 kg/m2 Kiet Robles MD Work Phone: [facility] 11-08-2023 09:58-0400 Body weight 84.37 kg Kiet Robles MD Work Phone: [facility] 11-08-2023 09:58-0400 Diastolic blood pressure 78 mm[Hg] Kiet Robles MD Work Phone: [facility] 11-08-2023 09:58-0400 Heart rate 83 /min Kiet Robles MD Work Phone: [facility] 11-08-2023 09:58-0400 SaO2% (BldA) [Mass fraction] 98 % Kiet Roblse MD Work Phone: [facility] 11-08-2023 09:58-0400 Systolic blood pressure 130 mm[Hg] Kiet Rolbes MD Work Phone: [facility] 10-14-2023 13:58-0400 Body height 167.6 cm Kiet Robles MD Work Phone: [facility] 10-14-2023 13:58-0400 Body mass index (BMI) [Ratio] 30.67 kg/m2 Kiet Robles MD Work Phone: [facility] 10-14-2023 13:58-0400 Body weight 86.18 kg Kiet Robles MD Work Phone: [facility] 09-13-2023 18:36-0400 Body height 167.64 cm [facility] 09-13-2023 18:36-0400 Body mass index (BMI) [Ratio] 30.2 kg/m2 [facility] 09-13-2023 18:36-0400 Body temperature 99.4 [degF] [facility] 09-13-2023 18:36-0400 Body weight 84.82 kg [facility] 09-13-2023 18:36-0400 Diastolic blood pressure 82 mm[Hg] [facility] 09-13-2023 18:36-0400 Heart rate 97 /min [facility] 09-13-2023 18:36-0400 Respiratory rate 18 /min [facility] 09-13-2023 18:36-0400 SaO2% (BldA) [Mass fraction] 97 % [facility] 09-13-2023 18:36-0400 Systolic blood pressure 136 mm[Hg] [facility] 03-09-2023 09:50-0500 Body height 167.6 cm Kiet Robles MD Work Phone: [facility] 03-09-2023 09:50-0500 Body mass index (BMI) [Ratio] 30.67 kg/m2 Kiet Robles MD Work Phone: [facility] 03-09-2023 09:50-0500 Body weight 86.18 kg Kiet Robles MD Work Phone: [facility] 03-09-2023 09:50-0500 Diastolic blood pressure 78 mm[Hg] Kiet Robles MD Work Phone: [facility] 03-09-2023 09:50-0500 Heart rate 98 /min Kiet Robles MD Work Phone: [facility] 03-09-2023 09:50-0500 SaO2% (BldA) [Mass fraction] 97 % Kiet Robles MD Work Phone: [facility] 03-09-2023 09:50-0500 Systolic blood pressure 128 mm[Hg] Kiet Robles MD Work Phone: [facility] 01-12-2023 17:50-0500 Body height 167.64 cm Kelli Monte Other [employer] Other 01-12-2023 17:50-0500 Body mass index (BMI) [Ratio] 30.99 kg/m2 Kelli Monte Other [employer] Other 01-12-2023 17:50-0500 Body temperature 98.1 [degF] Kelli Monte Other [employer] Other 01-12-2023 17:50-0500 Body weight 87.09 kg Kelli Monte Other [employer] Other 01-12-2023 17:50-0500 Respiratory rate 18 /min Kelli Monte Other [employer] Other 01-12-2023 17:50-0500 SaO2% (BldA) [Mass fraction] 95 % Kelli Monte Other [employer] Other 07-21-2022 13:05-0400 Body height 167.64 cm Kelli Monte Other [employer] Other 07-21-2022 13:05-0400 Body mass index (BMI) [Ratio] 31.95 kg/m2 Kelli Monte Other [employer] Other 07-21-2022 13:05-0400 Body temperature 98.3 [degF] Kelli Monte Other [employer] Other 07-21-2022 13:05-0400 Body weight 89.81 kg Kelli Monte Other [employer] Other 07-21-2022 13:05-0400 Diastolic blood pressure 82 mm[Hg] Kelli Monte Other [employer] Other 07-21-2022 13:05-0400 Respiratory rate 18 /min Kelli Monte Other [employer] Other 07-21-2022 13:05-0400 SaO2% (BldA) [Mass fraction] 96 % Kelli Monte Other [employer] Other 07-21-2022 13:05-0400 Systolic blood pressure 145 mm[Hg] Kelli Monte Other [employer] Other 01-24-2021 15:45-0500 Body height 167.64 cm Mary Bowens Other [employer] Other 01-24-2021 15:45-0500 Body temperature 101 [degF] Mary Bowens Other [employer] Other 01-24-2021 15:45-0500 Respiratory rate 18 /min Mary Bowens Other [employer] Other 01-24-2021 15:45-0500 SaO2% (BldA) [Mass fraction] 95 % Mary Bowens Other [employer] Other Encounters Encounter Date Encounter Type Care Provider Facility Start: 01-05-2025 ambulatory CARSON THOM-AMCHRISTINRA Facility:[facility] Start: 11-10-2024 End: 11-10-2024 ambulatory CARSON UMANGAH-AMANKRA Facility:[facility] Start: 11-10-2024 End: 11-10-2024 Patient encounter procedure CARSON TAMEKAMARIBELL-BACILIO [facility] Start: 11-07-2024 End: 11-07-2024 Steven flowsnoelle Robles MD Work Phone: [address] Start: 11-07-2024 End: 11-07-2024 Bamboo flowsheet Kiet Robles MD Work Phone: [facility] Start: 11-07-2024 End: 11-07-2024 Office outpatient visit 15 minutes Kiet Robles MD Work Phone: [facility] Comment on above: Urinary tract obstru ction due to kidney stone (Primary Dx); Nausea; Acute cystitis with hematuria; Encounter for examination following treatment at hospital Start: 11-07-2024 End: 11-07-2024 ambulatory KIET ROBLES Not Available Start: 11-02-2024 End: 11-03-2024 ambulatory [facility] Work Phone: Start: 11-02-2024 End: 11-02-2024 Departed Referred Amber [facility]-C -[facility] Start: 11-02-2024 End: 11-02-2024 Clinisync Result Encounter Generic External Data Provider [facility] External Department Unsolicited Start: 11-02-2024 End: 11-02-2024 Clinisync Result Encounter Generic External Data Provider [facility] External Department Unsolicited Start: 08-22-2024 End: 08-22-2024 Bamboo flowsnoelle Robles MD Work Phone: [facility] Start: 08-22-2024 End: 08-22-2024 Erickboo flowsnoelle Robles MD Work Phone: [facility] [...] ENT Start: 07-18-2024 End: 07-18-2024 Bamboo flowsheet Sulaiman [...] Not Available Start: 11-08-2023 End: 11-08-2023 Bamboo flowsnoelle Robles [...] type; Multiple kidney stones; Lung nodule Start: 10-14-2023 End: 10-14-2023 Steven marieheet Kiet Robles MD Work Phone: [facility] Start: 10-14-2023 End: 10-14-2023 [employer] [employer] Kiet Robles MD Work Phone: [facility] Start: 10-14-2023 End: 10-14-2023 Office outpatient visit 25 minutes Kiet Robles MD Work Phone: [facility] Comment on above: Left lower quadrant abdominal pain; Peritonitis (CMS/HCC); Nausea without vomiting; Hematuria, unspecified type; Polypharmacy; Non morbid obesity due to excess calories Start: 09-13-2023 End: 09-13-2023 ambulatory [facility] Work Phone: Start: 09-13-2023 End: 09-13-2023 Patient encounter procedure [facility] [place] Work [...] 01-12-2023 End: 01-12-2023 ambulatory Kelli Monte Other [employer] Other Start: 01-12-2023 Office outpatient vi sit 25 minutes Kelli Monte [facility] [place] Start: 07-21-2022 Office outpatient vi sit 15 minutes Kelli Monte [facility] [place] Start: 07-21-2022 End: 07-21-2022 ambulatory MASSIMO Monte Work Phone: [facility] Work Phone: Start: 07-21-2022 End: 07-21-2022 Patient encounter procedure MASSIMO Monte Work Phone: [facility] [place] Work Phone: Start: 03-13-2021 End: 03-14-[address] KIET ROBLES Facility:[facility]1 Start: 01-29-2021 End: 01-29-[address] KIET ROBLES Facility:[facility] Start: 01-24-2021 End: 01-24-2021 ambulatory Mary Bowens Other [employer] Other Start: 01-24-2021 Office outpatient vi sit 15 minutes Mary Bowens [facility] [place] Start: 01-19-2021 End: 01-19-[address] KIET ROBLES Facility:[facility] Procedures Date Procedure Procedure Detail Performing Clinician Start: 11-06-2024 Cystoscopic insertion of ureteric stent CARSON TAMEKAMARIBELL-AMANKRA Start: 11-03-2024 Lithotripsy CARSON NKANSAH-AMANKRA Start: 11-02-2024 URINE CULTURE - [facility] Generic External Da ta Provider Start: 07-17-2024 AUDITORY FUNCTION TESTS Livier Ambrosio [facility] Work Phone: Start: 11-26-2023 Mammography Kiet Robles MD Work Phone: Start: 07-29-2022 H/O: hysterectomy History of hysterectomy Kiet Marrero Work Phone: Start: 07-21-2022 X-ray of left ankle [employer] Kelli Monte Work Phone: Start: 03-13-2021 Mammography Kiet Robles MD Work Phone: H/O: hysterectomy History of hysterectomy Kiet Robles MD Work Phone: Ligation of fallopia n tube CARSON CANTU Partial hysterectomy CARSON CANTU Plan of Treatment Date Care Activity Detail Author Start: 02-19-2025 End: 02-19-2025 Patient encounter procedure [facility] Start: 11-25-2024 Screening for malign ant neoplasm of breast Mammogram [facility] Start: 11-07-2024 End: 11-07-2024 Patient encounter procedure 11/07/2024 1:45 PM EDT Office Visit [address] 112 [facility] 100 [place] [id number] Kiet Robles MD [address] [address] (Fax) Arrived [address] Comment on above: Arrived Start: 11-02-2024 Urine culture [facility] Start: 11-02-2024 Bacteria identified in Urine by Culture Urine Culture [facility] Start: 10-16-2024 Influenza vaccination [facility] Start: 08-22-2024 End: 08-22-2024 Patient encounter procedure [facility] Comment on above: Mixed hyperlipidemia ; Pre-diabetes; Stage 2 chronic kidney disease; Sleep initiation disorder; Cigarette smoker; Polypharmacy; Non morbid obesity due to excess calories Start: 07-31-2024 End: 07-31-2024 ambulatory 07/31/2024 12:00 PM EDT Evaluation [facility] [address] [place] [address] Irene Moran, PT [address] [place] [address] Cervicalgia (Primary Dx); BPPV (benign paroxysmal positional [...] Visit [facility] [address] [facility] [address] [place] [address] Sulaiman Meyer MD [address] [facility] [address] [place] [address] [facility] Start: 07-17-2024 End: 07-17-2024 Clinical Support 07/17/2024 10:15 AM EDT Clinical Support [facility] [address] [facility] [address] [place] [address] Livier Ambrosio, [facility] [address] [place] [place] [address] Arrived [facility] Comment on above: [...] Visit [facility] [address] [address] Kiet Robles MD [address] [place] [address] (Fax) Arrived [facility] Comment on above: Arrived Start: 11-17-2023 End: 11-17-2023 Patient encounter procedure 11/17/2023 11:45 AM EDT Office Visit [facility] [address] [id number] Kiet Robles MD [address] [place] [address] (Fax) Arrived [facility] Comment on above: Arrived Start: 11-08-2023 End: 01-07-2025 MG Breast - bilateral Screening Bilateral screening mammogram Imaging Routine Screening mammogram, encounter for Expected: 11/08/2023, Expires: 01/07/2025 [facility] Work Phone: Comment on above: Expected: 11/08/2023 , Expires: 01/07/2025 Start: 11-08-2023 End: 11-08-2023 Patient encounter procedure 11/08/2023 10:00 AM EDT Office Visit [facility] [address] [address] Kiet Robles MD [address] [place] [address] (Fax) Encounter for wellness examination in adult; Advance directive discussed with patient; Encounter for screening for malignant neoplasm of colon; Screening mammogram, encounter for; Screening for osteoporosis; History of hysterectomy; Menopause; Left lower quadrant abdominal pain; Peritonitis (CMS/HCC); Hematuria, unspecified type; Multiple kidney stones; Lung nodule [facility] Comment on above: Encounter for wellnc ss examination in adult; Advance directive discussed with patient; Encounter for screening for malignant neoplasm of colon; Screening mammogram, encounter for; Screening for osteoporosis; History of hysterectomy; Menopause; Left lower quadrant abdominal pain; Peritonitis (CMS/HCC); Hematuria, unspecified type; Multiple kidney stones; Lung nodule Start: 10-25-2023 End: 10-25-2023 Patient encounter procedure 10/25/2023 10:00 AM EDT Office Visit [facility] [address] [address] Kiet Robles MD [address] [place] [address] (Fax) [facility] Start: 10-17-2023 Influenza vaccination Influenza Vacc ine (#1) [facility] Start: 10-14-2023 End: 10-13-2024 CT Abdomen and Pelvis W contrast IV CT abdomen pelvis w IV contrast Imaging Routine Left lower quadrant abdominal pain Hematuria, unspecified type Nausea without vomiting Peritonitis (CMS/HCC) Expected: 10/14/2023, Expires: 10/13/2024 [facility] Work Phone: Comment on above: Expected: 10/14/2023 , Expires: 10/13/2024 Start: 10-14-2023 End: 10-14-2023 Patient encounter procedure 10/14/2023 2:00 PM EDT Office Visit [facility] [address] [address] Kiet Robles MD [address] [place] [address] (Fax) Arrived [facility] Comment on above: Arrived Start: 08-30-2023 End: 08-30-2023 Patient encounter procedure 08/30/2023 10:00 AM EDT Office Visit [facility] [address] [place] [address] Kiet Robles MD [address] [place] [address] (Fax) [facility] Start: 08-08-2023 End: 03-09-2024 Comprehensive metabolic 2000 panel - Serum or Plasma Comprehensive metabolic panel Lab Routine Pre-diabetes Stage 2 chronic kidney disease Expected: 08/08/2023, Expires: 03/09/2024 [facility] Work Phone: Comment on above: Expected: 08/08/2023 , Expires: 03/09/2024 Start: 08-08-2023 End: 03-09-2024 Lipid 1996 panel - Serum or Plasma Lipid panel Lab Routine Mixed hyperlipidemia (CMS/HCC) Expected: 08/08/2023, Expires: 03/09/2024 [facility] Comment on above: Expected: 08/08/2023 , Expires: 03/09/2024 Start: 10-16-2022 Influenza vaccination Influenza Vacc ine (#1) [facility] Start: 03-13-2022 Screening for malign ant neoplasm of breast Mammogram [facility] Start: 1965 Screening for malign ant neoplasm of colon [facility] [place]INE CULTU RE - [facility] Lab Routine 11/02/2024 5:25 PM EDT [facility] Immunizations Immunization Date Immunization Notes Care Provider Fa [facility] 12-26-2019 influenza, injectabl e, quadrivalent, preservative free Kiet Robles MD Work Phone: [facility] 12-26-2019 influenza virus vacc ine, unspecified formulation Kiet Robles MD Work Phone: [facility] 12-01-2018 influenza, injectabl e, quadrivalent, preservative free Kiet Robles MD Work Phone: [facility] 11-21-2018 influenza, seasonal, injectable Kiet Robles MD Work Phone: [facility] 11-22-2017 influenza, injectabl e, quadrivalent, preservative free Kiet Robles MD Work Phone: [facility] Healthcare Payers Date Payer Category Payer Self-pay [id number] 2022 Private Health Insurance [id number] 2022 Private Health Insurance [id number] 1967 Unknown [id number] 2.16.84 [id number] 1967 Unknown [id number] 2.16.84 0.1.590036.3.579.2.593 1967 Unknown [id number] 2.16.84 0.1.715250.3.579.2.593 1967 Unknown [id number] 2.16.8 40.1.826263.3.579.2.1259 1967 Unknown [id number] 2.16.8 40.1.714171.3.579.2.1259 1967 Unknown [id number] 2.16.8 40.1.397607.3.579.2.9 1967 Unknown [id number] 2.16.8 40.1.531806.3.579.2.1259 1967 Unknown [id number] 2.16.84 0.1.736858.3.579.2.1259 1967 Unknown [id number] 2.16.84 0.1.799487.3.579.2.1259 1967 Unknown [id number] 2.16.84 0.1.720224.3.579.2.1259 1967 Unknown [id number] 2.16.84 0.1.210555.3.579.2.1259 1967 Unknown [id number] 2.16.84 0.1.360653.3.579.2.1259 1967 Unknown [id number] 2.16.84 0.1.596525.3.579.2.1259 1967 Unknown [id number] 2.16.84 0.1.503926.3.579.2.9 1967 Unknown [id number] 2.16.8 40.1.872792.3.579.2.727 1967 Unknown [id number] 2.16.8 40.1.863751.3.579.2.727 1967 Unknown [id number] 2.16.8 40.1.012427.3.579.2.727 1959 Private Health Insurance [id number] Unknown [id number] 2.16.8 [id number] Social History Date Type Detail Facility Unknown if ever smoked [employer] Other Start: 09-13-2022 End: 09-16-2023 Sex Assigned At [facility] Start: 1965 Sex Assigned At Female F [facility] Start: 07-30-2022 End: 08-23-2023 Tobacco smoking status [facility] Smokes tobacco daily [facility] History of tobacco use Cigarette Smoker N [facility] Start: 07-30-2022 End: 08-23-2023 Tobacco use [...] Healthcare Start: 09-13-2023 Tobacco smoking stat us NHIS Smoker (finding) [facility] Start: 11-08-2023 End: 11-07-2024 Alcoholic beverage intake Ex-drinker (finding) [facility] Do you feel stress - tense, restless, nervous, or anxious, or unable to sleep at night because your mind is troubled all the time - these days [OSQ] To some extent [facility] Sex Female (finding) [facility] Start: 11-10-2024 Tobacco smoking status Heavy t obacco smoker (finding) [facility] Sexual Orientation [facility] Clinical Notes 01-24-2021 to 11-10-2024 Kiet Robles MD - 11/07/2024 1:45 PM Cy Robles MD - 08/22/2024 10:00 AM EDTIrene Moran PT - 08/01/2024 9:31 AM Benji Meyer MD - 07/18/2024 10:50 AM EDT Note Date & Type Note Facility 11-10-2024 Hospital Discharge instructions Patient Education 11/10/2024 10:16:28 Kidney Stones, Uirk-xr-Aodn Kidney Stones Kidney stones are rock-like masses that form inside of the kidneys. Kidneys are organs that make pee (urine). A kidney stone may move into other parts of the urinary tract, including: The tubes that connect the kidneys to the bladder (ureters). The bladder. The tube that carries urine out of the body (urethra). Kidney stones can cause very bad pain and can block the flow of pee. The stone usually leaves your body through your pee. A doctor may need to take out the stone. What are the causes? Kidney stones may be caused by: Too much calcium in the body. This may be caused by too much parathyroid hormone in the blood. Uric acid crystals in the bladder. The body makes uric acid when you eat certain foods. Narrowing of one or both of the ureters. A kidney blockage that you were born with. Past surgery on the kidney or the ureters. What increases the risk? You are more likely to develop this condition if: You have had a kidney stone in the past. Other people in your family have had kidney stones. You do not drink enough water. You eat a diet that is high in protein, salt (sodium), or sugar. You are very overweight (obese). What are the signs or symptoms? Symptoms of a kidney stone may include: Pain in the side of the belly, right below the ribs. Pain usually spreads to the groin. Needing to pee often or right away. Pain when peeing. Blood in your pee. Feeling like you may vomit (nauseous). Vomiting. Fever and chills. How is this treated? Treatment depends on the size, location, and makeup of the kidney stones. The stones will often pass out of the body when you pee. You may need to: Drink more fluid to help pass the stone. ?In some cases, you may be given fluids through an IV tube at the hospital. Take medicine for pain. Change your diet to help keep kidney stones from coming back. Sometimes, you may need: A procedure to break up kidney stones using a beam of light (laser) or shock waves. Surgery to remove the kidney stones. Follow these instructions at home: Medicines Take tkqs-gah-sywqwgx and prescription medicines only as told by your doctor. Ask your doctor if the medicine prescribed to you requires you to avoid driving or using machinery. Eating and drinking Drink enough fluid to keep your pee pale yellow. ?You may be told to drink at least 8 10 glasses of water each day. This will help you pass the stone. If told by your doctor, change your diet. You may be told to: ?Limit how much salt you eat. ?Eat more fruits and vegetables. ?Limit how much meat, poultry, fish, and eggs you eat. Follow instructions from your doctor about what you may eat and drink. General instructions Collect pee samples as told by your doctor. You may need to collect a pee sample: ?24 hours after a stone comes out. ?8 12 weeks after a stone comes out, and every 6 12 months after that. Strain your pee every time you pee. Use the strainer that your doctor recommends. Do not throw out the stone. Keep it so that it can be tested by your doctor. Keep all follow-up visits. You may need X-rays and ultrasounds to make sure the stone has come out. How is this prevented? To prevent another kidney stone: Drink enough fluid to keep your pee pale yellow. This is the best way to prevent kidney stones. Eat healthy foods. Avoid certain foods as told by your doctor. You may be told to eat less protein. Stay at a healthy weight. Where to find more information National Kidney Foundation (NKF): kidney.org Urology Care Foundation (UCF): urologyhealth.org Contact a doctor if: You have pain that gets worse or does not get better with medicine. Get help right away if: You have a fever or chills. You get very bad pain. You get new pain in your belly. You faint. You cannot pee. This information is not intended to replace advice given to you by your health care provider. Make sure you discuss any questions you have with your health care provider. Document Revised: 09/25/2022 Document Reviewed: 09/25/2022 [employer] Patient Education 2023 [employer]. Follow Up Care 11/06/2024 11:24:19 With:ALONDRA LOVE, CARSON, URL Address: When: Unknown Comments:2 mos ann/ DALILA and JAZMINE [facility] 11-10-2024 Note Patient Education Urology Kidney Stones Kidney stones are rock-like masses that form inside of the kidneys. Kidneys are organs that make pee (urine). A kidney stone may move into other parts of the urinary tract, including: ??? The tubes that connect the kidneys to the bladder (ureters). ??? The bladder. ??? The tube that carries urine out of the body (urethra). Kidney stones can cause very bad pain and can block the flow of pee. The stone usually leaves your body through your pee. A doctor may need to take out the stone. What are the causes? Kidney stones may be caused by: ??? Too much calcium in the body. This may be caused by too much parathyroid hormone in the blood. ??? Uric acid crystals in the bladder. The body makes uric acid when you eat certain foods. ??? Narrowing of one or both of the ureters. ??? A kidney blockage that you were born with. ??? Past surgery on the kidney or the ureters. What increases the risk? You are more likely to develop this condition if: ??? You have had a kidney stone in the past. ??? Other people in your family have had kidney stones. ??? You do not drink enough water. ??? You eat a diet that is high in protein, salt (sodium), or sugar. ??? You are very overweight (obese). What are the signs or symptoms? Symptoms of a kidney stone may include: ??? Pain in the side of the belly, right below the ribs. Pain usually spreads to the groin. ??? Needing to pee often or right away. ??? Pain when peeing. ??? Blood in your pee. ??? Feeling like you may vomit (nauseous). ??? Vomiting. ??? Fever and chills. How is this treated? Treatment depends on the size, location, and makeup of the kidney stones. The stones will often pass out of the body when you pee. You may need to: ??? Drink more fluid to help pass the stone. ? In some cases, you may be given fluids through an IV tube at the hospital. ??? Take medicine for pain. ??? Change your diet to help keep kidney stones from coming back. Sometimes, you may need: ??? A procedure to break up kidney stones using a beam of light (laser) or shock waves. ??? Surgery to remove the kidney stones. Follow these instructions at home: Medicines ??? Take nzfo-wuk-qeovzlw and prescription medicines only as told by your doctor. ??? Ask your doctor if the medicine prescribed to you requires you to avoid driving or using machinery. Eating and drinking ??? Drink enough fluid to keep your pee pale yellow. ? You may be told to drink at least 8?10 glasses of water each day. This will help you pass the stone. ??? If told by your doctor, change your diet. You may be told to: ? Limit how much salt you eat. ? Eat more fruits and vegetables. ? Limit how much meat, poultry, fish, and eggs you eat. ??? Follow instructions from your doctor about what you may eat and drink. General instructions ??? Collect pee samples as told by your doctor. You may need to collect a pee sample: ? 24 hours after a stone comes out. ? 8?12 weeks after a stone comes out, and every 6?12 months after that. ??? Strain your pee every time you pee. Use the strainer that your doctor recommends. ??? Do not throw out the stone. Keep it so that it can be tested by your doctor. ??? Keep all follow-up visits. You may need X-rays and ultrasounds to make sure the stone has come out. How is this prevented? To prevent another kidney stone: ??? Drink enough fluid to keep your pee pale yellow. This is the best way to prevent kidney stones. ??? Eat healthy foods. ??? Avoid certain foods as told by your doctor. You may be told to eat less protein. ??? Stay at a healthy weight. Where to find more information ??? National Kidney Foundation (NKF): kidney.org ??? Urology Care Foundation (UCF): urologyhealth.org Contact a doctor if: ??? You have pain that gets worse or does not get better with medicine. Get help right away if: ??? You have a fever or chills. ??? You get very bad pain. ??? You get new pain in your belly. ??? You faint. ??? You cannot pee. This information is not intended to replace advice given to you by your health care provider. Make sure you discuss any questions you have with your health care provider. Document Revised: 09/25/2022 Document Reviewed: 09/25/2022 [employer] Patient Education ? 2023 [employer] [facility] 11-07-2024 History of Present illness Narrative Images from the original note were not included. Patient ID: Chayito Church is a 59 y.o. female who presents for: Flowsheet Row Office Visit from 11/07/[address] Kiet Robles MD Hospital Information ED, Hospital or Long Term Facility Discharge? Hospital Patient has been contacted within two business days of discharge Yes Discharge Date 11/04/24 Discharged To: Home Setting Engagement Admission Date 11/02/24 Medications Discharge medications reviewed and reconciled from hospital? Yes Is the patient having any side effects they believe may be caused by any medication additions or changes? No Does the patient have all medications ordered at discharge? No Nursing Interventions -- [Pt was given script for oxy but has not picked up, trying not to take narcotics] Nursing Interventions Nurse provided patient education Appointments Does the patient have a primary care provider? Yes Does the patient have any upcoming specialty appointments? Yes [seeing urology Wednesday] Self Management Does patient have home health? no Patient Teaching Does the patient have access to their discharge instructions? Yes Nursing Interventions Reviewed instructions with patient What is the patient's perception of their health status since discharge? Improving Wrap Up Is the patient/caregiver familiar with Advance Care Planning? Yes Would the patient like more information on Advance Care Planning? No Patient is left obstructing kidney stone and urinary tract infection. Indwelling stent. No current fever and chills. A little bit of left flank pain radiating around down through the left lower quadrant near her groin. Still some hematuria. Does seem to be getting better. Has follow-up scheduled with Urology. Review of systems she does complain of intermittent nausea still. She has no medication for this. No vomiting diarrhea or constipation. Objective The patient is pleasant and in no acute distress The patient has good eye contact and clear speech, Little bit expansive today for her. 08/22/2024 9:53 AM 07/18/2024 10:51 AM 05/18/2024 9:06 AM 02/22/2024 9:57 AM Vitals BMI 30.1 kg/m2 30.02 kg/m2 30.02 kg/m2 30.02 kg/m2 BSA (m2) 1.98 m2 1.98 m2 1.98 m2 1.98 m2 Systolic 128 147 Diastolic 78 65 Heart Rate 77 95 85 SpO2 97 % 97 % Height (in) 5' 6 5' 6 5' 6 5' 6 Weight (lb) 186.5 186 186 186 Visit Report Report Report Report Report No Known [...] crush, chew, or split. 180 tablet 3 No current facility-administered medications on file prior to visit. 1. Urinary tract obstruction due to kidney stone (Primary) She does have the indwelling stent and this is most likely the cause of a lot of her discomfort. She has follow-up scheduled with the Urology soon. She is currently on antibiotic. No further intervention for this. 2. Nausea She is still getting intermittent nausea. We will get her some anti nausea medication. - ondansetron ODT (Zofran-ODT) 4 MG disintegrating tablet; Take 1 tablet (4 mg) by mouth every 8 (eight) hours if needed for nausea or vomiting for up to 10 days Dispense: 30 tablet; Refill: 0 3. Acute cystitis with hematuria As noted above 4. Encounter for examination following treatment at hospital This visit is prompted as a transition of care. The patient has been contacted by phone within 2 business days of discharge or at least 2 unsuccessful attempts were made to contact the patient within the 2 business days. Any available documents including; emergency room note, visit notes, consults, and discharge summary or continuity of care documents were reviewed. Any laboratory investigation or diagnostic imaging that was ordered by outside physicians and available was obtained and reviewed. The transition of care note is reviewed. a [id number]-wg-idgs evaluation is done today. Medical decision making is complex in degree. Please Note: Portions of this chart may have been created using voice recognition software. Occasionally a wrong-word or sound-like substitutions may have occurred due to inherent limitations of the voice recognition software. Please read the chart carefully and recognize, using context, where the substitutions may have occurred. documented in this encounter [facility] 08-22-2024 History of Present illness Narrative Images from the original note [...] encouraged lifestyle changes documented in this encounter [facility] 08-01-2024 History of Present illness Narrative 08/01/24: Patient called this morning reporting she has returned to normal following yesterdays BPPV maneuvers. She was able to roll to both side, stoop, and was unable to reproduce familiar spinning type vertigo. Patient grateful for services provided. Patient encouraged to call for additional treatment if incomplete resolution. No additional PT is needed at this time. documented in this encounter [facility] 07-18-2024 History of Present illness Narrative Subjective Patient ID: Chayito Church [...] and well-groomed, Constitutional comments: Strongly positive LEFT Fowler-Hallpike. Head and Face Appearance: head appears normal [...] at some point documented in this encounter [facility] 07-17-2024 History of Present illness Narrative History: Pt was referred to [...] Type A tympanogram documented in this encounter [facility] 05-18-2024 History of Present illness Narrative Images from the original note [...] palpable here today. documented in this encounter [facility] 02-22-2024 History of Present illness Narrative Images from the original note [...] file prior to visit. 1. Mixed hyperlipidemia ([facility]) In prescribing a renewal to their [...] auto PAP nightly. documented in this encounter [facility] 12-01-2023 History of Present illness Narrative Images from the original note [...] ) Albina was in the room as pathology assistant and assistant grocery store manager. With the patient in the frog-leg position, [...] can slow healing. documented in this encounter [facility] 11-17-2023 History of Present illness Narrative Images from the original note [...] Prescription for benzoate. documented in this encounter [facility] 11-08-2023 History of Present illness Narrative Images from the original note were not included. Patient ID: Chayito Church is a 58 y.o. female who presents for: See Scanned Wellness packet Advance Directive/Living Will: No Health Care Power of Director Reactor Projects: No Review of Systems Constitutional: Negative for [...] through a living will, durable power of pmp certified project manager for healthcare, or other advanced directives. We [...] History of hysterectomy Ex[facility] measures for cervical cancer screening 7. Menopause 8. Left lower quadrant abdominal pain - Ambulatory referral to Urology 9. Hematuria, unspecified type - Ambulatory referral to Urology 10. Multiple kidney stones - Ambulatory referral to Urology 11. Lung nodule - CT chest wo IV contrast documented in this encounter [facility] 10-14-2023 History of Present illness Narrative Images from the original note [...] to excess calories documented in this encounter [facility] 03-09-2023 History of Present illness Narrative Patient ID: Chayito Church is [...] all orders for this visit: Mixed hyperlipidemia ([facility]) - Lipid panel; Future - atorvastatin [...] At this point the patient or their outside sales account representative and I have mutually agreed to [...] humidification. I certify that I had a yvsh-my-sftr encounter with this patient at todays office visit. Due to this medical condition the patient requires DME. I certify that based on my findings The DME ordered is medically necessary for this patient. This has been discussed with the patient and/or their outside sales account representative and mutually agreed upon. CPAP (continuous [...] and reviewed with the patient. [facility] https://www.ncbi.nlm.nih.gov/pmc /articles/TAS0294159/. 2015; 13: 74. Published online 2014May 22. https://www.ncbi.nlm.nih.gov/pub med/77252163 The rising tide of polypharmacy and drug-drug interactions: population database analysis 5509-8355 https://www.ncbi.nlm.nih.gov/pmc /articles/EIV7125621/. 5. Terrence K, Ursula SW, Nisha M, Becca G, Patricia S, Ana B. Epidemiology of multimorbidity and implications for health care, research, and medical education: a cross-sectional study. Lancet. 2012;380:37-43. documented in this encounter [facility] 01-12-2023 Evaluation note Encounter Date [...] dr note x 1 day if needed [employer] Other 06-06-2023 Evaluation note* Encounter Date Diagnosis [...] Ankle sprain home care material was printed [employer] Other 12-10-2021 Evaluation note* Encounter Date Diagnosis [...] Patient care instructions given in writting by [facility] Care At Home document. [employer] Other Evaluation + Plan note Future Appointments Appointment Date:01/05/2025 10:45:00 AM Scheduled Provider:CARSON CANTU MD Location:[facility] Appointment Type:URO Office Visit Future Scheduled Tests Radiology* XR Abdomen 1 View 12/16/24 * US Renal 12/16/24 [facility] Evaluation noteNo assessment information available [facility] Work Phone: Evaludyfzg note* Diagnosis Mixed hyperlipidemia (CMS/HCC)- Primary Mixed [...] bundle branch block documented in this encounter [facility] HealthcareEvaluation note* Diagnosis Onset Date Resolution Status Contact with and (suspected) exposure to covid-19 noneactive [facility] Work Phone: Evalurnvbp note* Diagnosis Cellulitis of right leg- Primary Abscess of right leg Polypharmacy Issue of repeat prescriptions Cigarette smoker Tobacco use disorder documented in [facility] encounter [facility]* Diagnosis Acute viral syndrome- Primary Acute cough documented in this encounter [facility] HealthcareEvaluation note* Diagnosis Left lower quadrant abdominal pain Peritonitis (CMS/HCC) Unspecified peritonitis Nausea without vomiting Hematuria, unspecified type Polypharmacy Issue of repeat prescriptions Non morbid obesity due to excess calories documented in this encounter [facility] HealthcareEvaluation note* Diagnosis Encounter for wellness [...] not elsewhere classified documented in this encounter [facility] HealthcareEvaluation note* Diagnosis Obstructive sleep apnea- Primary [...] disorders of metabolism documented in this encounter [facility] Healthcare[facility] note* Diagnosis Sensorineural hearing loss (SNHL) of both ears- Primary Tinnitus, bilateral Unspecified tinnitus Vertigo Dizziness and giddiness documented in this encounter [facility] HealthcareEvaluation note* Diagnosis Cervicalgia- Primary BPPV (benign paroxysmal positional vertigo), left documented in this encounter [facility] Healthcare[facility] note* Diagnosis BPPV (benign paroxysmal positional vertigo), left- Primary Sensorineural hearing loss (SNHL), bilateral Bilateral tinnitus documented in this encounter [facility] Healthcare[facility] note* Diagnosis Mixed hyperlipidemia Mixed hyperlipidemia Pre-diabetes Other abnormal glucose Stage 2 chronic kidney disease Sleep initiation disorder Cigarette smoker Tobacco use disorder Polypharmacy Issue of repeat prescriptions Non morbid obesity due to excess calories documented in this encounter [facility] note* Diagnosis Urinary tract obstruction due to kidney stone- Primary Nausea Nausea alone Acute cystitis with hematuria Encounter for examination following treatment at hospital [facility] - [facility]* Type Description Date Medical History vertigo Surgical History tumor/granuloma of brain Surgical History partial hysterectomy Surgical History tubal ligation Surgical History wisdom teeth Surgical History D&C x5 Hospitalization History see above [employer] Other History general Narrative - Reported* Type Description Date Medical History vertigo Medical History high blood pressure Medical History diabetes mellitus Surgical History tumor/granuloma of brain Surgical History partial hysterectomy Surgical History tubal ligation Surgical History wisdom teeth Surgical History D&C x5 Hospitalization History see above [employer] Other Hospital course Narrative No data available for this section [facility] Progress note No data available for this section [facility] Reason for referral (narrative)No reason for referral [facility]: Reason for visit Narrative* Rehabilitation - Outpatient (Routine) - Authorized Specialty Diagnoses / Procedures Referred By Contac t Referred To Contact Physical Therapy Diagnoses BPPV (benign paroxysmal positional vertigo), left Procedures [place] OFFICE/OUTPATIENT NEW HIGH MDM 60 MINUTES Sulaiman Meyer MD [address] [facility] [address] [place] [address] Phone: tel: fax: Irene Moran, PT [address] [place] [address] Phone: tel: fax: Referral ID Status Reason Start Date Expiration Date Visits Requested Visits Authorized [id number] Authorized Consult and Treat 07/18/2024 01/14/2025 20 20 [facility] Summary Purpose Family History No Family History Records Found Relationship Condition Age at Onset Recorded Date/T margarita father Heart disease Unknown Advance Directives No Advanced Directives Records Found Advance Directive Response Recorded Date/ Time Advance Directives No July 22 8:50am Chief Complaint and Reason for Visit Chief Complaint fever, cough, conges tion Reason for Visit Contact with and (mccartney spected) exposure to covid-19 Chief Complaint Admit Date Unknown November 02, 2024 5:25pm Reason for Referral Specialty Diagnoses / Procedures Referred By Contac t Referred To Contact Radiology Diagnoses Left lower quadrant abdominal pain Hematuria, unspecified type Nausea without vomiting Peritonitis (CMS/HCC) Procedures CT abdomen pelvis w IV contrast Kiet Robles MD [address] [place] [address] Referral ID Status Reason Start Date Expiration Date V isits Requested Visits Authorized [id number] Pending Review 10/14/2023 04/11/2024 1 1 Additional Source Comments INFORMATION SOURCE (unrecogn ized section and content) DATE CREATED AUTHOR 03/01/2021 [facility] dical Specialist DATE CREATED AUTHOR AUTHOR'S ORGANIZ ATION 03/18/2021 [facility] DATE CREATED AUTHOR AUTHOR'S ORGANIZ ATION 08/09/2024 [facility] DATE CREATED AUTHOR AUTHOR'S ORGANIZ ATION 11/05/2024 [facility] DATE CREATED AUTHOR AUTHOR'S ORGANIZ ATION 11/08/2024 [facility] dical Specialists EPIC DATE CREATED AUTHOR AUTHOR'S ORGANIZ ATION 11/17/2024 [facility] REASON FOR VISIT (unrecogniz ed section and content) Reason Comments Hyperlipidemia Sleeping Problem Reason Comments Annual Exam Reason Comments Hyperlipidemia insulin resistance Reason Comments Vertigo Reason Comments Vertigo Audio 07/17/24 Specialty Diagnoses / Procedures Referred By Contac t Referred To Contact Otolaryngology Diagnoses Vertigo Chronic maxillary sinusitis Procedures [place] OFFICE/OUTPATIENT NEW HIGH MDM 60 MINUTES Kiet Robles MD [address] [facility] [address] [place] [address] Phone: tel: fax:[phone] Sulaiman Meyer MD [address] [place] [address] Phone: tel: fax: Referral ID Status Reason Start Date Expiration Date V isits Requested Visits Authorized [id number] Closed Specialty Services Required 06/07/2024 12/04/2024 1 1 Reason Comments Follow-up Care Teams (unrecognized sec tion and content) Team Status: Inactive Member Role Status Dates [place] APRN Attending Provider Active Licensed Pesticide Applicator Relationship Specialty Start Date End Date Kiet Robles MD [address] [place] [address] PCP - General Family Medicine 07/29/22 Team Status: Active Member Role Status Dates Kiet Robles MD Primary Care Provider Active Team Status: Inactive Member Role Status Dates Keit Robles MD Primary Care Provider Active Start: September 13, 2023 End: September 13, 2023 Danisha Guy , [employer]PARTMENT [employer]OUTER Attending Provider Active Start: September 13, 2023 End: September 13, 2023 Licensed Pesticide Applicator Relationship Specialty Start Date End Date Kiet Robles MD [address] [place] [address] PCP - General Family Medicine 07/29/22 Licensed Pesticide Applicator Relationship Specialty Start Date End Date Kiet Robles MD [address] [place] [address] PCP - General Family Medicine 07/29/22 Licensed Pesticide Applicator Relationship Specialty Start Date End Date Kiet Robles MD [address] [place] [address] PCP - General Family Medicine 07/29/22 Licensed Pesticide Applicator Relationship Specialty Start Date End Date Kiet Robles MD [address] [place] [address] PCP - General Family Medicine 07/29/22 Licensed Pesticide Applicator Relationship Specialty Start Date End Date Kiet Robles MD [address] [place] [address] PCP - General Family Medicine 07/29/22 Licensed Pesticide Applicator Relationship Specialty Start Date End Date Kiet Robles MD [address] [place] [address] PCP - General Family Medicine 07/29/22 Licensed Pesticide Applicator Relationship Specialty Start Date End Date Kiet Robles MD [address] [place] [address] PCP - General Family Medicine 07/29/22 Licensed Pesticide Applicator Relationship Specialty Start Date End Date Kiet Robles MD [address] [place] [address] PCP - General Family Medicine 07/29/22 Licensed Pesticide Applicator Relationship Specialty Start Date End Date Kiet Robles MD (Fax) PCP - General Family Medicine 07/29/22 Licensed Pesticide Applicator Relationship Specialty Start Date End Date Kiet Robles MD (Fax) PCP - General Family Medicine 07/29/22 Licensed Pesticide Applicator Relationship Specialty Start Date End Date Kiet Robles MD (Fax) PCP - General Family Medicine 07/29/22 Licensed Pesticide Applicator Relationship Specialty Start Date End Date Kiet Robles MD (Fax) PCP - General Family Medicine 07/29/22 Licensed Pesticide Applicator Relationship Specialty Start Date End Date Kiet Robles MD [address] [place] [address] (Fax) PCP - General Family Medicine 06/07/24 Licensed Pesticide Applicator Relationship Specialty Start Date End Date Kiet Robles MD [address] [place] [address] (Fax) PCP - General Family Medicine 06/07/24 Licensed Pesticide Applicator Relationship Specialty Start Date End Date Kiet Robles MD [address] [place] [address] (Fax) PCP - General Family Medicine 06/07/24 Licensed Pesticide Applicator Relationship Specialty Start Date End Date Kiet Robles MD [address] [place] [address] (Fax) PCP - General Family Medicine 06/07/24 Licensed Pesticide Applicator Relationship Specialty Start Date End Date Kiet Robles MD [address] [place] [address] (Fax) PCP - General Family Medicine 06/07/24 Licensed Pesticide Applicator Relationship Specialty Start Date End Date Kiet Robles MD [address] [place] [address] (Fax) PCP - General Family Medicine 06/07/24 Licensed Pesticide Applicator Relationship Specialty Start Date End Date Kiet Robles MD [address] [place] [address] (Fax) PCP - General Family Medicine 06/07/24 Licensed Pesticide Applicator Relationship Specialty Start Date End Date Kiet Robles MD [address] [place] [address] (Fax) PCP - General Family Medicine 06/07/24 Team Status: Inactive Member Role Status Dates Amber Collins PA-C Attending Provider Active Start: November 02, 2024 End: November 02, 2024 Licensed Pesticide Applicator Relationship Specialty Start Date End Date Kiet Robles MD [address] [place] [address] (Fax) PCP - General Family Medicine 06/07/24 Licensed Pesticide Applicator Relationship Specialty Start Date End Date Kiet Robles MD [address] [place] [address] PCP - General Family Medicine 06/07/24 Goals [...] BE BASED ON THE PRIMARY CLINICAL RECORDS. [employer] [facility]. provides no warranty or guarantee of the accuracy or completeness of information in this document.
--- NOTE | 2024-12-01 13:35 | MM_ITS ---
Patient Name: JANNY FERREIRA MR#: [id number] : 1965 Exam Date: 12/01/2024 Ordering Doctor: DR KIET ROBLES . RADIOLOGY REPORT PROCEDURE: MM TOMOSYNTHESIS SCREENING BI COMPARISON: MM TOMOSYNTHESIS SCREENING BI, 11/26/2023. MG MAMM SCREEN 3D [place] CAD, 03/13/2021. MG MAMM SCREEN [place] W CAD, 09/15/2018. MG MAMM [place] SCRN W CAD DIG, 11/14/2013. INDICATIONS: Screening Calculator Name NCI Breast Cancer Risk Assessment Tool 5 Year Breast Cancer Risk 1.80% Lifetime Breast Cancer Risk 10.70% Personal Breast Cancer No Personal Ovarian Cancer No Treatments None Family Cancers Grandmother-maternal with breast cancer at age ~81; Grandfather-paternal with prostate cancer at age ~80. LOCATION: [facility] BREAST COMPOSITION: The breasts are heterogeneously dense, which may obscure small masses. FINDINGS: RIGHT BREAST: No significant suspicious finding. Benign-appearing calcifications are present. Benign-appearing lymph nodes are noted along the right chest wall. LEFT BREAST: No significant suspicious finding. Benign-appearing calcifications are present. DIAGNOSTIC CATEGORY 2--BENIGN FINDING. NO CHANGE FROM COMPARISON. RECOMMENDATIONS: ROUTINE MAMMOGRAM AND CLINICAL EVALUATION IN 12 MONTHS. Dictated by: Abel Euceda MD on 12/01/2024 at 16:15 Approved by: Abel Euceda MD on 12/01/2024 at 16:28
== END 2024-12-01 13:11 | disposition home or self-care (01) ==
LOC: MAMMO 13:10
PROVIDERS: PCP Family Medicine; Visit Provider Family Medicine
DX: Z12.31 Encounter for screening mammogram for malignant neoplasm of breast (principal); Z80.3 Family history of malignant neoplasm of breast; Z80.42 Family history of malignant neoplasm of prostate
CPT/HCPCS: 77063; 77067